=== PATIENT | male | born 1940 | race Caucasian/White ===

== ENCOUNTER 2016-07-19 13:48 | Inpatient (IN) | payer MEDICARE, OTHER ==
--- NOTE | 2016-07-19 14:05 | EDPRACDOC ---
- General Information Chief Complaint: Bleeding (Rectal &/or other) Stated Complaint: BLOOD IN STOOL Time Seen by Provider: 07/19/16 13:59 Information Source: Patient, [facility] Mode of Arrival: Ambulance Home Medications: Home Medications Acetaminophen [Tylenol] 650 mg PO Q6H PRN 07/19/16 Albuterol/Ipratropium Neb [Duoneb] 3 ml NEB Q6H PRN 07/19/16 Allopurinol [Zyloprim] 300 mg PO DAILY 07/19/16 Apixaban [Eliquis] 2.5 mg PO BID 07/19/16 Ascorbic Acid [Vitamin C] 500 mg PO BID 07/19/16 Baclofen 5 mg PO TID 07/19/16 Calcium Carbonate 500 mg PO BID 07/19/16 Carbidopa/Levodopa [Sinemet 10-100 mg Tablet] 1 tab PO TID 07/19/16 Docusate Sodium [Colace] 100 mg PO BID 07/19/16 Guaifenesin [Humabid, Mucinex] 600 mg PO Q12H 07/19/16 Guaifenesin [Robitussin] 10 ml PO Q6H 07/19/16 Levofloxacin [Levaquin] 750 mg PO .DAILY X 7DAYS 07/19/16 Lmfol Ca/Acetyl/Mb12/Algal Oil [Cerefolin Nac Caplet] 1 tab PO DAILY 07/19/16 Med Pass 60 ml PO TID 07/19/16 Metoprolol Tartrate 50 mg PO BID 07/19/16 Mirtazapine 15 mg PO QHS 07/19/16 Multivitamin [One Daily] 1 tab PO DAILY 07/19/16 Ns [Normal Saline] 1,000 ml IV BID 07/19/16 Nystatin 5 ml PO QID 07/19/16 Omeprazole 20 mg PO DAILY 07/19/16 Perphenazine 2 mg PO TID 07/19/16 Sodium Bicarbonate 650 mg PO TID 07/19/16 Zinc Sulfate 220 mg PO DAILY 07/19/16 Allergies/Adverse Reactions: Allergies Allergy/AdvReac Type Severity Reaction Status Date / Time hydrocodone Allergy Unknown Verified 07/19/16 13:57 shrimp Allergy Unknown Verified 07/19/16 13:57 Sulfa (Sulfonamide Allergy Unknown Verified 07/19/16 13:57 Antibiotics) - History of Present Illness Onset: TODAY HPI: PT PRESENTS WITH REPORT OF RECTAL BLEEDING. PATIENT DOES NOT KNOW WHY HE IS HERE. ED Past Medical History - Patient Medical History Neurological History: Reports: Dementia Cardiac History: Reports: Atrial Fibrillation, Hypertension EDM Review of Systems - Review of Systems ROS Unobtainable: Yes Hx Limited due to age/level of understanding of patient - Physical Exam Constitutional: Alert, Confused Oriented to: Person Last recorded Vital Signs: Last Vital Signs Temp 98.3 F 07/19/16 13:50 Pulse 130 H 07/19/16 13:50 Resp 20 07/19/16 13:50 BP 111/67 07/19/16 13:50 Pulse Ox 92 07/19/16 13:50 Oxygen Pulse Oxygen Saturation 92 O2 Device Nasal Cannula Oxygen Flow Rate 1 Fraction of Inspired Oxygen ( FIO2) - HEENT Head: negative: Deformity, Laceration Eye Exam: Pale Conjunctiva. negative: Conjunctival Injection Oropharynx: negative: Membranes Dry Nose: negative: Congestion, Discharge Neck: negative: Limited ROM - Respiratory/Cardiovascular Respiratory: Tachypnea. negative: Rales Cardiovascular: Tachycardia. negative: Irregular - GI Auscultation: Normal Palpation: Normal Tenderness: Non tender - Musculoskeletal Extremities: Pedal Pulse (PALPABLE), Radial Pulse (PALPABLE) - Integumentary Skin: Warm, Dry - Neurologic Memory Impaired: Short-term, Long-term Motor Function: Normal Mood Description: Flat Thought: Other (CONFUSED BUT ABLE TO ANSWER QUESTIONS ABOUT CURRENT STATE SOMEWHAT.) - Results 07/19/16 14:16 07/19/16 14:16 - Departure Yes I personally saw and evaluated the patient. Disposition: Admit IP To This Hospital Condition: Stable Final Diagnosis: GI bleed, Elevated lipase, Chronic renal disease, UTI (urinary tract infection) Instructions: Urinary Tract Infection in Men (ED), Dysuria Decision to Admit Time: 16:05 Decision to admit date: 07/19/16 Decision to admit: from ED
[2016-07-19 14:29] LABS: AUTOMATED BASOPHIL 0.5 % (0-2); AUTOMATED EOSINOPHIL 0.2 % (0-5); AUTOMATED LYMPH 7.9 % (17-44); AUTOMATED NEUTROPHIL 83.4 % (45-76); MPV 7.2 fL (7.4-10.4)
[2016-07-19 14:39] LABS: ABG Draw Site Right Radial; ALLEN'S TEST PASS; BEb 2.2 (+/- 2); TCO2 26.3 MMOL/L (23-27)
[2016-07-19 14:42] LABS: BLOOD UREA NITROGEN 66 MG/DL (9-20); CALC CORRECTED 9.7 MG/DL (8.4-10.2); CALCIUM 8.4 MG/DL (8.4-10.2); CALCULATED OSMOLALITY 308 MOs/Kg (270-290); CHLORIDE 112 mEq/L (98-107); GLUCOSE 108 MG/DL (70-99); SODIUM LEVEL 150 mEq/L (137-146); TOTAL PROTEIN 6.6 G/DL (6.3-8.2)
--- NOTE | 2016-07-19 14:42 | DIRPT ---
CLINICAL DATA: Weakness. Rectal bleeding. EXAM: PORTABLE CHEST 1 VIEW COMPARISON: None. FINDINGS: There is cardiomegaly even considering the AP technique. Previous median sternotomy. Pulmonary vascularity is normal. No discrete infiltrates or effusions. No acute osseous abnormality. IMPRESSION: Cardiomegaly. Electronically Signed By: Hardy Lerma M.D. On: 07/19/2016 14:39
[2016-07-19 14:46] LABS: PARTIAL THROMB. TIME 29.9 SEC (22-35); PT-INR 1.4
[2016-07-19] MEDS ORDERED: NS 1,000 ML IV ONE ×2 (14:46→15:38)
[2016-07-19 14:56] LABS: CPK TOTAL WITH POSSIBLE MB < 20 IU/L (55-170)
[2016-07-19] MEDS ORDERED: Pharmacy Review for Metformin - IV Contrast Given SCH (15:00)
[2016-07-19 15:32] LABS: LEUKOCYTES/URINE 2+ (NEGATIVE); NITRITE/URINE NEG (NEGATIVE); URINE OCCULT BLOOD NEG (NEG/TRACE); WBC/URINE TNTC (0-2)
[2016-07-19] MEDS ORDERED: CEFTRIAXONE 1 GM in D5W 100 ML IV ONE (15:38)
--- NOTE | 2016-07-19 15:49 | DIRPT ---
CLINICAL DATA: Rectal bleeding. EXAM: CT ABDOMEN AND PELVIS WITHOUT CONTRAST TECHNIQUE: Multidetector CT imaging of the abdomen and pelvis was performed following the standard protocol without IV contrast. COMPARISON: None. FINDINGS: Mild multilevel degenerative disc disease is noted in lower lumbar spine. Minimal left pleural effusion is noted. Mild interstitial densities are noted posteriorly in both lung bases which may represent scarring or edema. Mild cholelithiasis is noted. No focal abnormality is noted in the liver, spleen or pancreas on these unenhanced images. Adrenal glands appear normal. Bilateral renal atrophy with cortical scarring is noted. Probable nonobstructive calculus is seen in upper pole collecting system of left kidney. No hydronephrosis or renal obstruction is noted. There is no evidence of bowel obstruction. Stool is noted throughout the colon, with a large amount of stool seen in the rectum concerning for impaction. Urinary bladder is minimally distended. Prostatic calcifications are noted. Atherosclerosis of abdominal aorta is noted without aneurysm formation. IMPRESSION: Minimal left pleural effusion is noted. Mild interstitial densities are noted posteriorly in both lung bases which may represent scarring or edema. Mild cholelithiasis is noted. Bilateral renal atrophy with cortical scarring. Probable nonobstructive left renal calculus. No hydronephrosis or renal obstruction is noted. Large amount of stool is noted in the rectum concerning for impaction. Electronically Signed By: Hardy Terrell Jr, M.D. On: 07/19/2016 15:46
--- NOTE | 2016-07-19 16:46 | HISTPHYS ---
- Chief Complaint Bright red blood per rectum - History of Present Illness Mr. Mendoza is a 76-year-old white male who is chronically ill and nonambulatory who was [facility] the emergency room from [facility] with bright red blood per rectum. He has dementia and Parkinson's disease and is unable to provide any history. It is unknown how long he has been bleeding or how much. He is heme-positive from below. He also has a congested-sounding cough and multiple electrolyte abnormalities. He is minimally anemic with a hemoglobin of 11 does appear dehydrated with an acute kidney injury. His white count is mildly elevated. A CT scan of the abdomen and pelvis shows constipation but no other significant acute abnormality. Given the bleeding and unknown details his history he will be admitted for further evaluation and management. - Medical History Cardiac History: Reports: Atrial Fibrillation, Hypertension Respiratory History: Reports: COPD GI/ History: Reports: Renal Disease, Gastroesophageal Reflux Musculoskeletal History: Reports: Arthritis Systemic History: Reports: No Significant History Neurological History: Reports: Dementia, Parkinson's Psychological History: Reports: No Significant History - Surgical History Reports: No Significant History - Medictions/Allergies Allergies hydrocodone Allergy (Verified 07/19/16 13:57) Unknown shrimp Allergy (Verified 07/19/16 13:57) Unknown Sulfa (Sulfonamide Antibiotics) Allergy (Verified 07/19/16 13:57) Unknown Current Medication List: Reviewed Home Medications Acetaminophen [Tylenol] 650 mg PO Q6H PRN 07/19/16 Albuterol/Ipratropium Neb [Duoneb] 3 ml NEB Q6H PRN 07/19/16 Allopurinol [Zyloprim] 300 mg PO DAILY 07/19/16 Apixaban [Eliquis] 2.5 mg PO BID 07/19/16 Ascorbic Acid [Vitamin C] 500 mg PO BID 07/19/16 Baclofen 5 mg PO TID 07/19/16 Calcium Carbonate 500 mg PO BID 07/19/16 Carbidopa/Levodopa [Sinemet 10-100 mg Tablet] 1 tab PO TID 07/19/16 Docusate Sodium [Colace] 100 mg PO BID 07/19/16 Guaifenesin [Humabid, Mucinex] 600 mg PO Q12H 07/19/16 Guaifenesin [Robitussin] 10 ml PO Q6H 07/19/16 Levofloxacin [Levaquin] 750 mg PO .DAILY X 7DAYS 07/19/16 Lmfol Ca/Acetyl/Mb12/Algal Oil [Cerefolin Nac Caplet] 1 tab PO DAILY 07/19/16 Med Pass 60 ml PO TID 07/19/16 Metoprolol Tartrate 50 mg PO BID 07/19/16 Mirtazapine 15 mg PO QHS 07/19/16 Multivitamin [One Daily] 1 tab PO DAILY 07/19/16 Ns [Normal Saline] 1,000 ml IV BID 07/19/16 Nystatin 5 ml PO QID 07/19/16 Omeprazole 20 mg PO DAILY 07/19/16 Perphenazine 2 mg PO TID 07/19/16 Sodium Bicarbonate 650 mg PO TID 07/19/16 Zinc Sulfate 220 mg PO DAILY 07/19/16 - Family History Reports: No Significant History - Social History Travel Outside of [place] in the Last 3 Months?: No Lives: [facility] Smoking Status: Never smoker Social History: Denies: Alcohol Use - Review of Systems Yes Review of systems cannot be obtained due to the patient's medical condition (Confusion and dementia) - Physical Exam Constitutional: Alert, Confused, Distress. negative: Well appearing (Severely chronically ill-appearing) Oriented to: Person Exam: Last Vital Signs Temp 98.3 F 07/19/16 13:50 Pulse 123 H 07/19/16 16:44 Resp 20 07/19/16 16:44 BP 122/77 07/19/16 16:44 Pulse Ox 93 07/19/16 16:44 Intake & Output 07/19/16 07/19/16 07/19/16 07:59 15:59 23:59 Output Total 150 Balance -150 Patient's weight 102.965 kg - HEENT Head: Normal. negative: Deformity, Laceration Eye: Pale Conjunctiva. negative: Conjunctival Injection Oropharynx: Normal. negative: Membranes Dry Tympanic Membrane: Normal Nose: negative: Congestion, Discharge - Respiratory/Cardiovascular Respiratory: Rhonchi, Tachypnea. negative: Rales Cardiovascular: Tachycardia, Irregular - GI Auscultation: Normal Palpation: Normal Tenderness: Non tender Rectal Exam: Heme positive stool - Musculoskeletal Back: Abrasion Extremities: Edema (Mild peripheral edema), Pedal Pulse (PALPABLE), Radial Pulse (PALPABLE). negative: Clubbing, Cyanosis - Integumentary Skin: Warm, Dry Lymphatics: Normal. negative: Adenopathy - Neurologic Memory Impaired: Short-term, Long-term Motor Function: Unable to Test Cranial Nerve: Unable to Test Cerebellar: Unable to Test Mood Description: Flat Thought: Other (Confused and unable provide any history. Does not follow commands for me) Perception: negative: Normal - Focused CV Perfusion Exam Vital Signs: Last Vital Signs Temp 98.3 F 07/19/16 13:50 Pulse 123 H 07/19/16 16:44 Resp 20 07/19/16 16:44 BP 122/77 07/19/16 16:44 Pulse Ox 93 07/19/16 16:44 - Lab Results Laboratory Results - last 24 hr 07/19/16 07/19/16 07/19/16 14:16 14:16 14:16 WBC 13.9 H RBC 3.83 L Hgb 11.4 L Hct 34.2 L MCV 89 MCH 29.8 MCHC 33.4 RDW 17.7 H Plt Count 593 H MPV 7.2 L Neut % (Auto) 83.4 H Lymph % (Auto) 7.9 L [place] % (Auto) 8.0 Eos % (Auto) 0.2 Baso % (Auto) 0.5 Absolute Neuts (auto) 11.54 H Absolute Lymphs (auto) 0.97 PT INR APTT Puncture Site pH pCO2 pO2 HCO3 Total CO2 Base Excess Specimen Drawn By Sodium 150 H Potassium 3.3 L Chloride 112 H Carbon Dioxide 25 Anion Gap 16 BUN 66 H Creatinine 1.90 H Estimated GFR (MDRD) 35 L Glucose 108 H Calculated Osmolality 308 H Lactic Acid 2.7 H Calcium 8.4 Corrected Calcium 9.7 Total Bilirubin 0.8 AST 37 ALT 16 L Alkaline Phosphatase 171 H Creatine Kinase < 20 L Troponin I 0.03 Total Protein 6.6 Albumin 2.7 L Lipase 1315 H Urine Color Urine Clarity Urine pH Ur Specific [place] Urine Protein Urine Glucose (UA) Urine Ketones Urine Occult Blood Urine Nitrite Urine Bilirubin Urine Urobilinogen Ur Leukocyte Esterase Urine RBC Urine WBC Urine WBC Clumps Ur Epithelial Cells Urine Bacteria Hyaline Casts Urine Mucus 07/19/16 07/19/16 07/19/16 14:16 14:35 15:00 WBC RBC Hgb Hct MCV MCH MCHC RDW Plt Count MPV Neut % (Auto) Lymph % (Auto) [place] % (Auto) Eos % (Auto) Baso % (Auto) Absolute Neuts (auto) Absolute Lymphs (auto) PT 14.9 H INR 1.4 APTT 29.9 Puncture Site Right radial pH 7.480 H pCO2 34.0 L pO2 59.0 L HCO3 25.3 Total CO2 26.3 Base Excess 2.2 H Specimen Drawn By Hiren Sodium Potassium Chloride Carbon Dioxide Anion Gap BUN Creatinine Estimated GFR (MDRD) Glucose Calculated Osmolality Lactic Acid Calcium Corrected Calcium Total Bilirubin AST ALT Alkaline Phosphatase Creatine Kinase Troponin I Total Protein Albumin Lipase Urine Color Yellow Urine Clarity Cldy Urine pH 6.0 Ur Specific [place] 1.010 Urine Protein Neg Urine Glucose (UA) Neg Urine Ketones Neg Urine Occult Blood Neg Urine Nitrite Neg Urine Bilirubin Neg Urine Urobilinogen <2.0 Ur Leukocyte Esterase 2+ H Urine RBC 2-5 H Urine WBC Tntc H Urine WBC Clumps Present H Ur Epithelial Cells 1+ Urine Bacteria 1+ H Hyaline Casts 5-10 H Urine Mucus Occ - Assessment (1) GI bleed K92.2 - GASTROINTESTINAL HEMORRHAGE, UNSPECIFIED Acute Present on Admission: Yes Qualifiers: GI bleed type/associated pathology: anorectal hemorrhage Qualified Code(s) : K62.5 - Hemorrhage of anus and rectum This is mild and likely hemorrhoidal versus diverticular. He is on Eliquis. His hemoglobin is currently stable. Will monitor his H&H and transfuse if needed. CT scan showed constipation which may be contributing to bleeding. (2) Acute kidney injury N17.9 - ACUTE KIDNEY FAILURE, UNSPECIFIED Acute Present on Admission: Yes IV fluids and monitor (3) Bronchopneumonia J18.0 - BRONCHOPNEUMONIA, UNSPECIFIED ORGANISM Acute Present on Admission: Yes Congested-sounding cough but x-ray negative. Will start on IV Rocephin azithromycin. Nebulizers as needed. Oxygen support. (4) Hypokalemia E87.6 - HYPOKALEMIA Acute Present on Admission: Yes Replete with IV fluids (5) Elevated lipase R74.8 - ABNORMAL LEVELS OF OTHER SERUM ENZYMES Acute Present on Admission: Yes Unclear what to make of this. Monitor. (6) UTI (urinary tract infection) N39.0 - URINARY TRACT INFECTION, SITE NOT SPECIFIED Acute Present on Admission: Yes Qualifiers: Urinary tract infection type: acute cystitis Hematuria presence: without hematuria Qualified Code(s): N30.00 - Acute cystitis without hematuria IV Rocephin. Adjust antibiotics pending culture results (7) Atrial fibrillation I48.91 - UNSPECIFIED ATRIAL FIBRILLATION Chronic Present on Admission: Yes Qualifiers: Atrial fibrillation type: chronic Qualified Code(s): I48.2 - Chronic atrial fibrillation Continue home medications. Hold anticoagulation due to bleeding. Monitor on telemetry. (8) Dementia F03.90 - UNSPECIFIED DEMENTIA WITHOUT BEHAVIORAL DISTURBANCE Acute Present on Admission: Yes Qualifiers: Dementia type: Alzheimer's disease Alzheimer's disease onset: late-onset Dementia behavioral disturbance: without behavioral disturbance Qualified Code (s): G30.1 - Alzheimer's disease with late onset; F02.80 - Dementia in other diseases classified elsewhere without behavioral disturbance Unable to provide any meaningful history. (9) Parkinsons disease G20 - PARKINSON'S DISEASE Acute Present on Admission: Yes Continue Sinemet and monitor.
[2016-07-19] MEDS ORDERED: Docusate Sodium 100 MG CAP PO PRN (16:47)
[2016-07-19] MEDS ORDERED: ZOLPIDEM TARTRATE 5 MG TAB PO PRN (16:47)
[2016-07-19] MEDS ORDERED: Albuterol/Ipratropium Neb 3 ML NEB NEB PRN (16:47)
[2016-07-19] MEDS ORDERED: MAGNESIUM HYDROXIDE 30 ML BOTTLE PO PRN (16:47)
[2016-07-19] MEDS ORDERED: ONDANSETRON HCL 4 MG/2 ML VIAL IV PRN (16:47)
[2016-07-19] MEDS ORDERED: GUAIFENESIN 200 MG/10 ML UDC PO PRN (16:47)
[2016-07-19] MEDS ORDERED: PROMETHAZINE 25 MG/ML VIAL IV PRN (16:47)
[2016-07-19] MEDS ORDERED: BENZONATATE 100 MG PERLES PO PRN (16:47)
[2016-07-19] MEDS ORDERED: LACTULOSE 20 GM/30 ML ORAL SOLN PO ONE (16:53)
[2016-07-19] MEDS: AZITHROMYCIN 500 MG in D5W 250 ML IV SCH (18:26)
[2016-07-19] MEDS: NS/KCl 20 mEq 1,000 ML IV SCH (18:26)
[2016-07-19] MEDS ORDERED: MED PASS PO SCH (21:00)
[2016-07-19] MEDS ORDERED: SODIUM BICARBONATE 650 MG PO SCH (21:00)
[2016-07-19] MEDS: CALCIUM CARBONATE 500 MG TAB PO SCH (21:50)
[2016-07-19] MEDS: BACLOFEN 10 MG TAB PO SCH (21:50)
[2016-07-19] MEDS: Docusate Sodium 100 MG CAP PO SCH (21:50)
[2016-07-19] MEDS: ASCORBIC ACID 500 MG TAB PO SCH (21:51)
[2016-07-19] MEDS: MIRTAZAPINE 15 MG TAB PO SCH (21:51)
[2016-07-19] MEDS: SODIUM BICARBONATE 650 MG (10 GR) TAB PO SCH (21:51)
[2016-07-19] MEDS: CARBIDOPA LEVODOPA PO SCH (21:51)
[2016-07-19] MEDS: PERPHENAZINE 2 MG TAB PO SCH (21:52)
[2016-07-19] MEDS: METOPROLOL TARTRATE 50 MG TAB PO SCH (22:14)
[2016-07-19] MEDS: NYSTATIN ORAL SUSP 5 ML PO SCH (22:14)
[2016-07-20] MEDS: ACETAMINOPHEN 325 MG/TAB TABLET PO PRN (01:41)
[2016-07-20] MEDS: NS/KCl 20 mEq 1,000 ML IV SCH ×2 (04:14→11:24)
[2016-07-20] MEDS ORDERED: Vaccine Screening Complete SCH (05:00)
[2016-07-20] MEDS: BACLOFEN 10 MG TAB PO SCH ×3 (05:16→23:33)
[2016-07-20] MEDS: PANTOPRAZOLE 40 MG TAB PO SCH (05:16)
[2016-07-20] MEDS: CARBIDOPA LEVODOPA PO SCH ×3 (05:16→23:36)
[2016-07-20] MEDS: SODIUM BICARBONATE 650 MG (10 GR) TAB PO SCH ×3 (05:17→23:36)
[2016-07-20] MEDS: PERPHENAZINE 2 MG TAB PO SCH ×3 (05:17→23:36)
[2016-07-20] MEDS: NYSTATIN ORAL SUSP 5 ML PO SCH ×4 (07:43→23:35)
[2016-07-20] MEDS: ASCORBIC ACID 500 MG TAB PO SCH ×2 (07:46→23:37)
[2016-07-20] MEDS: Docusate Sodium 100 MG CAP PO SCH ×2 (07:46→23:33)
[2016-07-20] MEDS: METOPROLOL TARTRATE 50 MG TAB PO SCH ×2 (07:46→23:34)
[2016-07-20] MEDS: CALCIUM CARBONATE 500 MG TAB PO SCH ×2 (07:46→23:35)
[2016-07-20] MEDS: ALLOPURINOL 300 MG TAB PO SCH (07:47)
[2016-07-20] MEDS: ZINC SULFATE 220 MG CAP PO SCH (07:47)
[2016-07-20 07:59] LABS: AUTOMATED BASOPHIL 0.2 % (0-2); AUTOMATED EOSINOPHIL 0.3 % (0-5); AUTOMATED MONOCYTE 7.3 % (3-10); AUTOMATED NEUTROPHIL 82.2 % (45-76); MPV 7.8 fL (7.4-10.4)
[2016-07-20 08:17] LABS: BLOOD UREA NITROGEN 56 MG/DL (9-20); CALCIUM 8.3 MG/DL (8.4-10.2); CALCULATED OSMOLALITY 307 MOs/Kg (270-290); CHLORIDE 115 mEq/L (98-107); GLUCOSE 88 MG/DL (70-99); SODIUM LEVEL 152 mEq/L (137-146)
[2016-07-20] MEDS ORDERED: Non-Formulary Medication ITEM (Omeprazole [Omeprazole] 20 MG) PO SCH (09:00)
[2016-07-20] MEDS ORDERED: Non-Formulary Medication ITEM (Multivitamin [One Daily] 1 TAB) PO SCH (09:00)
[2016-07-20] MEDS ORDERED: [UNRECOGNIZED DRUG - MIXTURE] PO SCH (09:00)
[2016-07-20] MEDS: VITAMINS (FOLGARD RX) TAB PO SCH (12:48)
[2016-07-20] MEDS: VITAMINS, MULTIPLE CAP PO SCH (12:48)
[2016-07-20] MEDS: CEFTRIAXONE 1 GM in D5W 100 ML IV SCH (15:15)
--- NOTE | 2016-07-20 16:25 | GENMEDPROG ---
Chief Complaint: Less congested on exam today. Hemoglobin relatively stable. Denies further bleeding. Remains very confused however Notes Reviewed: Yes Events from last night noted and discussed with Clinical Staff Current Medication List: Reviewed Currently: Reports: Cough, Wheezing, ARMENDARIZ, SOB. Denies: Nausea and Vomiting, Abdominal Pain, Chest Pain DVT Prophylaxis: Yes - Physical Examination Vital Signs and I&O: Last Vital Signs Temp 98.2 F 07/20/16 13:50 Pulse 112 07/20/16 13:50 Resp 18 07/20/16 13:50 BP 106/68 07/20/16 13:50 Pulse Ox 96 07/20/16 13:50 Oxygen Pulse Oxygen Saturation 96 O2 Device Nasal Cannula Oxygen Flow Rate 1 Fraction of Inspired Oxygen ( FIO2) Intake & Output 07/17/16 07/18/16 07/19/16 07/20/16 23:59 23:59 23:59 23:59 Intake Total 2825 1362 Output Total 200 Balance 2625 1362 Patient's weight 97.182 kg 97.749 kg General: Alert, Mild distress. negative: Oriented x3, Cooperative HEENT: Normal, PERRLA, EOMI, Anicteric Sclera Neck: Non-tender, Full range of motion, Normal Trachea alignment, Normal inspection. negative: JVD Lymphatics: Normal. negative: Adenopathy Respiratory: Rhonchi, Tachypnea. negative: Rales Cardiovascular: Regular rate and rhythm, No Gallops,Rubs/Murmurs GI: Normal bowel sounds, Soft, Non tender, No hepatospenomegaly Extremities/Musculoskeletal: Normal pulses. negative: Tenderness, Swelling, Edema Skin: Warm,Dry and Intact, No rashes, No breakdown, No significant lesion Neurological: Normal speech, Strength at 5/5 X4 ext, Normal tone, Cranial nerves 3-12 NL Psych/Mental Status: Appropriate, Normal Affect, Confused Lab/DI/Studies Reviewed: Laboratory Results - last 24 hr 07/19/16 07/19/16 07/20/16 17:15 19:35 01:05 WBC RBC Hgb 10.2 L D Hct 32.1 L MCV MCH MCHC RDW Plt Count MPV Neut % (Auto) Lymph % (Auto) [place] % (Auto) Eos % (Auto) Baso % (Auto) Absolute Neuts (auto) Absolute Lymphs (auto) Sodium Potassium Chloride Carbon Dioxide Anion Gap BUN Creatinine Estimated GFR (MDRD) Glucose Calculated Osmolality Lactic Acid 1.4 Calcium Troponin I 0.03 07/20/16 07/20/16 07/20/16 07:04 07:04 09:10 WBC 14.0 H RBC 3.44 L Hgb 10.1 L 10.3 L Hct 31.2 L 31.5 L MCV 91 MCH 29.3 MCHC 32.4 L RDW 18.4 H Plt Count 453 H MPV 7.8 Neut % (Auto) 82.2 H Lymph % (Auto) 10.0 L [place] % (Auto) 7.3 Eos % (Auto) 0.3 Baso % (Auto) 0.2 Absolute Neuts (auto) 11.48 H Absolute Lymphs (auto) 1.40 Sodium 152 H Potassium 3.6 Chloride 115 H Carbon Dioxide 25 Anion Gap 16 BUN 56 H Creatinine 1.60 H Estimated GFR (MDRD) 42 L Glucose 88 Calculated Osmolality 307 H Lactic Acid Calcium 8.3 L Troponin I - Assessment (1) GI bleed Acute K92.2 - GASTROINTESTINAL HEMORRHAGE, UNSPECIFIED Qualifiers: GI bleed type/associated pathology: anorectal hemorrhage Qualified Code(s) : K62.5 - Hemorrhage of anus and rectum Comment/Plan: Hemoglobin stable with no further bleeding. Continue to hold Eliquis for now. Treating constipation. If remains stable then would hold on further workup given overall poor functional status and health. (2) Acute kidney injury Acute N17.9 - ACUTE KIDNEY FAILURE, UNSPECIFIED Comment/Plan: Slightly better. Continue IV fluids and monitor. (3) Bronchopneumonia Acute J18.0 - BRONCHOPNEUMONIA, UNSPECIFIED ORGANISM Comment/Plan: Less congested today. Continue oxygen support. Continue IV antibiotics. Repeat chest x-ray in a.m.. (4) Hypokalemia Acute E87.6 - HYPOKALEMIA Comment/Plan: Replete with IV fluids (5) Elevated lipase Acute R74.8 - ABNORMAL LEVELS OF OTHER SERUM ENZYMES Comment/Plan: Unclear what to make of this. Monitor. (6) UTI (urinary tract infection) Acute N39.0 - URINARY TRACT INFECTION, SITE NOT SPECIFIED Qualifiers: Urinary tract infection type: acute cystitis Hematuria presence: without hematuria Qualified Code(s): N30.00 - Acute cystitis without hematuria Comment/Plan: IV Rocephin. Adjust antibiotics pending culture results (7) Atrial fibrillation Chronic I48.91 - UNSPECIFIED ATRIAL FIBRILLATION Qualifiers: Atrial fibrillation type: chronic Qualified Code(s): I48.2 - Chronic atrial fibrillation Comment/Plan: Continue home medications. Hold anticoagulation due to bleeding. Monitor on telemetry. (8) Dementia Acute F03.90 - UNSPECIFIED DEMENTIA WITHOUT BEHAVIORAL DISTURBANCE Qualifiers: Dementia type: Alzheimer's disease Alzheimer's disease onset: late-onset Dementia behavioral disturbance: without behavioral disturbance Qualified Code (s): G30.1 - Alzheimer's disease with late onset; F02.80 - Dementia in other diseases classified elsewhere without behavioral disturbance Comment/Plan: Unable to provide any meaningful history. (9) Parkinsons disease Acute G20 - PARKINSON'S DISEASE Comment/Plan: Continue Sinemet and monitor. Case Care Discussed with: Patient, Nursing Staff, Physical Therapy, Resource Management, Respiratory Therapy, Mortician Investigator
[2016-07-20] MEDS: AZITHROMYCIN 500 MG in D5W 250 ML IV SCH (17:18)
[2016-07-20] MEDS: KCL 20 MEQ IV SCH (18:40)
[2016-07-20] MEDS: [UNRECOGNIZED DRUG - OTHER] IV SCH (18:40)
[2016-07-20] MEDS: MIRTAZAPINE 15 MG TAB PO SCH (23:35)
[2016-07-21] MEDS: BACLOFEN 10 MG TAB PO SCH ×3 (05:35→21:17)
[2016-07-21] MEDS: CARBIDOPA LEVODOPA PO SCH ×3 (05:36→21:23)
[2016-07-21] MEDS: PANTOPRAZOLE 40 MG TAB PO SCH (05:36)
[2016-07-21] MEDS: PERPHENAZINE 2 MG TAB PO SCH ×3 (05:37→21:24)
[2016-07-21] MEDS: SODIUM BICARBONATE 650 MG (10 GR) TAB PO SCH ×3 (05:37→21:24)
[2016-07-21] MEDS: [UNRECOGNIZED DRUG - OTHER] IV SCH (05:39)
[2016-07-21] MEDS: KCL 20 MEQ IV SCH (05:39)
[2016-07-21 07:19] LABS: MPV 8.4 fL (7.4-10.4)
[2016-07-21 07:23] LABS: BLOOD UREA NITROGEN 42 MG/DL (9-20); CALCIUM 8.1 MG/DL (8.4-10.2); CALCULATED OSMOLALITY 299 MOs/Kg (270-290); CHLORIDE 117 mEq/L (98-107); GLUCOSE 91 MG/DL (70-99); SODIUM LEVEL 150 mEq/L (137-146)
--- NOTE | 2016-07-21 08:15 | DIRPT ---
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 Bandlike opacities in the lung bases favoring atelectasis. Small left pleural effusion. IMPRESSION: 1. Small left pleural effusion and mild bibasilar bandlike opacities favoring atelectasis. 2. Mild enlargement of the cardiopericardial silhouette. Electronically Signed By: Ephraim Baltazar M.D. On: 07/21/2016 08:13
[2016-07-21] MEDS: METOPROLOL TARTRATE 50 MG TAB PO SCH ×2 (08:24→21:18)
[2016-07-21] MEDS: ALLOPURINOL 300 MG TAB PO SCH (08:24)
[2016-07-21] MEDS: ASCORBIC ACID 500 MG TAB PO SCH ×2 (08:25→21:25)
[2016-07-21] MEDS: Docusate Sodium 100 MG CAP PO SCH ×2 (08:25→21:17)
[2016-07-21] MEDS: NYSTATIN ORAL SUSP 5 ML PO SCH ×4 (08:25→21:18)
[2016-07-21] MEDS: ZINC SULFATE 220 MG CAP PO SCH (08:25)
[2016-07-21] MEDS: CALCIUM CARBONATE 500 MG TAB PO SCH ×2 (08:25→21:22)
--- NOTE | 2016-07-21 13:27 | GENMEDPROG ---
Chief Complaint: Feels okay. Still confused. Hemoglobin stable. Notes Reviewed: Yes Events from last night noted and discussed with Clinical Staff Current Medication List: Reviewed Currently: Reports: Cough, Wheezing, ARMENDARIZ, SOB. Denies: Nausea and Vomiting, Abdominal Pain, Chest Pain DVT Prophylaxis: Yes - Physical Examination Vital Signs and I&O: Last Vital Signs Temp 99.2 F 07/21/16 06:00 Pulse 110 07/21/16 08:25 Resp 18 07/21/16 06:00 BP 122/72 07/21/16 08:25 Pulse Ox 94 07/21/16 08:00 Oxygen Pulse Oxygen Saturation 94 O2 Device Nasal Cannula Oxygen Flow Rate 1 Fraction of Inspired Oxygen ( FIO2) Intake & Output 07/18/16 07/19/16 07/20/16 07/21/16 23:59 23:59 23:59 23:59 Intake Total 2825 2941 810 Output Total 200 225 Balance 2625 2941 585 Patient's weight 97.182 kg 97.749 kg 98.203 kg General: Alert, Mild distress. negative: Oriented x3, Cooperative HEENT: Normal, PERRLA, EOMI, Anicteric Sclera Neck: Non-tender, Full range of motion, Normal Trachea alignment, Normal inspection. negative: JVD Lymphatics: Normal. negative: Adenopathy Respiratory: Rhonchi, Tachypnea. negative: Rales Cardiovascular: Regular rate and rhythm, No Gallops,Rubs/Murmurs GI: Normal bowel sounds, Soft, Non tender, No hepatospenomegaly Extremities/Musculoskeletal: Normal pulses. negative: Tenderness, Swelling, Edema Skin: Warm,Dry and Intact, No rashes, No breakdown, No significant lesion Neurological: Normal speech, Strength at 5/5 X4 ext, Normal tone, Cranial nerves 3-12 NL Psych/Mental Status: Appropriate, Normal Affect, Confused Lab/DI/Studies Reviewed: Laboratory Results - last 24 hr 07/21/16 07/21/16 06:25 06:25 WBC 15.1 H RBC 3.57 L Hgb 10.4 L Hct 32.7 L MCV 92 MCH 29.2 MCHC 31.9 L RDW 18.3 H Plt Count 431 H MPV 8.4 Sodium 150 H Potassium 3.9 Chloride 117 H Carbon Dioxide 24 Anion Gap 13 BUN 42 H Creatinine 1.40 H Estimated GFR (MDRD) 49 L Glucose 91 Calculated Osmolality 299 H Calcium 8.1 L - Assessment (1) Acute kidney injury Acute N17.9 - ACUTE KIDNEY FAILURE, UNSPECIFIED Comment/Plan: Steadily better. Continue IV fluids and monitor. (2) GI bleed Acute K92.2 - GASTROINTESTINAL HEMORRHAGE, UNSPECIFIED Qualifiers: GI bleed type/associated pathology: anorectal hemorrhage Qualified Code(s) : K62.5 - Hemorrhage of anus and rectum Comment/Plan: Hemoglobin stable with no further bleeding. Continue to hold Eliquis for now. Treating constipation. If remains stable then would hold on further workup given overall poor functional status and health. (3) Bronchopneumonia Acute J18.0 - BRONCHOPNEUMONIA, UNSPECIFIED ORGANISM Comment/Plan: Repeat chest x-ray negative. Less congested. Encouraged deep inspiration and activity as tolerated. (4) Hypokalemia Acute E87.6 - HYPOKALEMIA Comment/Plan: Replete with IV fluids (5) Elevated lipase Acute R74.8 - ABNORMAL LEVELS OF OTHER SERUM ENZYMES Comment/Plan: Recheck. Exam benign. (6) UTI (urinary tract infection) Acute N39.0 - URINARY TRACT INFECTION, SITE NOT SPECIFIED Qualifiers: Urinary tract infection type: acute cystitis Hematuria presence: without hematuria Qualified Code(s): N30.00 - Acute cystitis without hematuria Comment/Plan: Culture negative. DC antibiotics. (7) Atrial fibrillation Chronic I48.91 - UNSPECIFIED ATRIAL FIBRILLATION Qualifiers: Atrial fibrillation type: chronic Qualified Code(s): I48.2 - Chronic atrial fibrillation Comment/Plan: Continue home medications. Hold anticoagulation due to bleeding. Monitor on telemetry. (8) Dementia Acute F03.90 - UNSPECIFIED DEMENTIA WITHOUT BEHAVIORAL DISTURBANCE Qualifiers: Dementia type: Alzheimer's disease Alzheimer's disease onset: late-onset Dementia behavioral disturbance: without behavioral disturbance Qualified Code (s): G30.1 - Alzheimer's disease with late onset; F02.80 - Dementia in other diseases classified elsewhere without behavioral disturbance Comment/Plan: Unable to provide any meaningful history. (9) Parkinsons disease Acute G20 - PARKINSON'S DISEASE Comment/Plan: Continue Sinemet and monitor. Case Care Discussed with: Patient, Nursing Staff, Physical Therapy, Resource Management, Photolith Operator
[2016-07-21] MEDS: VITAMINS (FOLGARD RX) TAB PO SCH (14:51)
[2016-07-21] MEDS: VITAMINS, MULTIPLE CAP PO SCH (14:51)
[2016-07-21] MEDS: CEFTRIAXONE 1 GM in D5W 100 ML IV SCH (16:31)
[2016-07-21] MEDS: AZITHROMYCIN 500 MG in D5W 250 ML IV SCH (18:21)
[2016-07-21] MEDS: MIRTAZAPINE 15 MG TAB PO SCH (21:23)
[2016-07-22] MEDS: BACLOFEN 10 MG TAB PO SCH ×3 (05:49→20:32)
[2016-07-22] MEDS: CARBIDOPA LEVODOPA PO SCH ×3 (05:50→20:46)
[2016-07-22] MEDS: PANTOPRAZOLE 40 MG TAB PO SCH (05:50)
[2016-07-22] MEDS: SODIUM BICARBONATE 650 MG (10 GR) TAB PO SCH ×3 (05:51→20:34)
[2016-07-22] MEDS: PERPHENAZINE 2 MG TAB PO SCH ×3 (05:51→20:33)
[2016-07-22 08:04] LABS: AUTOMATED BASOPHIL 0.4 % (0-2); AUTOMATED EOSINOPHIL 0.9 % (0-5); AUTOMATED LYMPH 10.7 % (17-44); AUTOMATED MONOCYTE 5.9 % (3-10); AUTOMATED NEUTROPHIL 82.1 % (45-76); MPV 8.2 fL (7.4-10.4)
[2016-07-22 08:24] LABS: BLOOD UREA NITROGEN 36 MG/DL (9-20); CALCIUM 8.1 MG/DL (8.4-10.2); CALCULATED OSMOLALITY 292 MOs/Kg (270-290); CHLORIDE 115 mEq/L (98-107); GLUCOSE 95 MG/DL (70-99); SODIUM LEVEL 148 mEq/L (137-146); TOTAL PROTEIN 5.2 G/DL (6.3-8.2)
[2016-07-22] MEDS: ZINC SULFATE 220 MG CAP PO SCH (09:39)
[2016-07-22] MEDS: NYSTATIN ORAL SUSP 5 ML PO SCH ×4 (09:39→20:36)
[2016-07-22] MEDS: METOPROLOL TARTRATE 50 MG TAB PO SCH ×2 (09:40→20:35)
[2016-07-22] MEDS: Docusate Sodium 100 MG CAP PO SCH ×2 (09:40→20:32)
[2016-07-22] MEDS: CALCIUM CARBONATE 500 MG TAB PO SCH ×2 (09:40→20:39)
[2016-07-22] MEDS: ASCORBIC ACID 500 MG TAB PO SCH ×2 (09:41→20:33)
[2016-07-22] MEDS: ALLOPURINOL 300 MG TAB PO SCH (09:41)
[2016-07-22] MEDS: VITAMINS, MULTIPLE CAP PO SCH (11:26)
[2016-07-22] MEDS: VITAMINS (FOLGARD RX) TAB PO SCH (11:26)
--- NOTE | 2016-07-22 12:54 | GENMEDPROG ---
Chief Complaint: Slowly better. Still moderate confusion. Some low-grade fever yesterday. Notes Reviewed: Yes Events from last night noted and discussed with Clinical Staff Current Medication List: Reviewed Currently: Reports: Cough, Wheezing, ARMENDARIZ, SOB. Denies: Nausea and Vomiting, Abdominal Pain, Chest Pain DVT Prophylaxis: Yes - Physical Examination Vital Signs and I&O: Last Vital Signs Temp 98 F 07/22/16 05:38 Pulse 136 H 07/22/16 09:36 Resp 22 07/22/16 09:36 BP 106/79 07/22/16 09:36 Pulse Ox 92 07/22/16 09:36 Oxygen Pulse Oxygen Saturation 92 O2 Device Room Air Oxygen Flow Rate 1 Fraction of Inspired Oxygen ( FIO2) Intake & Output 07/19/16 07/20/16 07/21/16 07/22/16 23:59 23:59 23:59 23:59 Intake Total 2825 2941 1505 1090 Output Total 200 225 Balance 2625 2941 1280 1090 Patient's weight 97.182 kg 97.749 kg 98.203 kg 99.478 kg General: Alert, Mild distress, Well nourished. negative: Oriented x3, Cooperative, Well appearing HEENT: Normal, PERRLA, EOMI, Anicteric Sclera Neck: Non-tender, Full range of motion, Normal Trachea alignment, Normal inspection. negative: JVD Lymphatics: Normal. negative: Adenopathy Respiratory: Rhonchi, Tachypnea. negative: Rales Cardiovascular: Regular rate and rhythm, No Gallops,Rubs/Murmurs GI: Normal bowel sounds, Soft, Non tender, No hepatospenomegaly Extremities/Musculoskeletal: Normal pulses. negative: Tenderness, Swelling, Edema Skin: Warm,Dry and Intact, No rashes, No breakdown, No significant lesion Neurological: Normal speech, Strength at 5/5 X4 ext, Normal tone, Cranial nerves 3-12 NL Psych/Mental Status: Appropriate, Normal Affect, Confused Lab/DI/Studies Reviewed: Laboratory Results - last 24 hr 07/21/16 07/22/16 07/22/16 20:12 07:06 07:06 WBC 18.2 H RBC 3.51 L Hgb 10.0 L Hct 31.9 L MCV 91 MCH 28.4 MCHC 31.3 L RDW 18.3 H Plt Count 403 H MPV 8.2 Neut % (Auto) 82.1 H Lymph % (Auto) 10.7 L [place] % (Auto) 5.9 Eos % (Auto) 0.9 Baso % (Auto) 0.4 Absolute Neuts (auto) 14.92 H Absolute Lymphs (auto) 1.82 Sodium 148 H Potassium 3.7 Chloride 115 H Carbon Dioxide 22 Anion Gap 15 BUN 36 H Creatinine 1.40 H Estimated GFR (MDRD) 49 L Glucose 95 POC Capillary Glucose 356 H Calculated Osmolality 292 H Calcium 8.1 L Corrected Calcium 10.0 Total Bilirubin 0.8 AST 17 ALT 20 L Alkaline Phosphatase 137 Total Protein 5.2 L Albumin 2.1 L Lipase 1182 H - Assessment (1) Acute kidney injury Acute N17.9 - ACUTE KIDNEY FAILURE, UNSPECIFIED Comment/Plan: Steadily better. Continue IV fluids and monitor. (2) GI bleed Acute K92.2 - GASTROINTESTINAL HEMORRHAGE, UNSPECIFIED Qualifiers: GI bleed type/associated pathology: anorectal hemorrhage Qualified Code(s) : K62.5 - Hemorrhage of anus and rectum Comment/Plan: Hemoglobin stable with no evidence of active bleeding. Likely can resume Eliquis. Would hold on further evaluation given poor baseline functionality at this time. (3) Bronchopneumonia Acute J18.0 - BRONCHOPNEUMONIA, UNSPECIFIED ORGANISM Comment/Plan: Still moderate congestion and has been having some fever. Encourage out of bed as much as possible. (4) Hypokalemia Acute E87.6 - HYPOKALEMIA Comment/Plan: Replete with IV fluids (5) Elevated lipase Acute R74.8 - ABNORMAL LEVELS OF OTHER SERUM ENZYMES Comment/Plan: Recheck. Exam benign. (6) UTI (urinary tract infection) Acute N39.0 - URINARY TRACT INFECTION, SITE NOT SPECIFIED Qualifiers: Urinary tract infection type: acute cystitis Hematuria presence: without hematuria Qualified Code(s): N30.00 - Acute cystitis without hematuria Comment/Plan: Culture negative. DC antibiotics. (7) Atrial fibrillation Chronic I48.91 - UNSPECIFIED ATRIAL FIBRILLATION Qualifiers: Atrial fibrillation type: chronic Qualified Code(s): I48.2 - Chronic atrial fibrillation Comment/Plan: Continue home medications. Hold anticoagulation due to bleeding. Monitor on telemetry. (8) Dementia Acute F03.90 - UNSPECIFIED DEMENTIA WITHOUT BEHAVIORAL DISTURBANCE Qualifiers: Dementia type: Alzheimer's disease Alzheimer's disease onset: late-onset Dementia behavioral disturbance: without behavioral disturbance Qualified Code (s): G30.1 - Alzheimer's disease with late onset; F02.80 - Dementia in other diseases classified elsewhere without behavioral disturbance Comment/Plan: Unable to provide any meaningful history. (9) Parkinsons disease Acute G20 - PARKINSON'S DISEASE Comment/Plan: Continue Sinemet and monitor. Case Care Discussed with: Patient, Nursing Staff, Physical Therapy, Resource Management, Overhead Crane Inspector
[2016-07-22] MEDS: CEFTRIAXONE 1 GM in D5W 100 ML IV SCH (16:32)
[2016-07-22] MEDS: AZITHROMYCIN 500 MG in D5W 250 ML IV SCH (17:33)
[2016-07-22] MEDS: ACETAMINOPHEN 325 MG/TAB TABLET PO PRN (17:58)
[2016-07-22] MEDS: MIRTAZAPINE 15 MG TAB PO SCH (20:36)
[2016-07-23] MEDS: CARBIDOPA LEVODOPA PO SCH ×3 (05:06→22:42)
[2016-07-23] MEDS: BACLOFEN 10 MG TAB PO SCH ×3 (05:07→22:41)
[2016-07-23] MEDS: PANTOPRAZOLE 40 MG TAB PO SCH (05:07)
[2016-07-23] MEDS: SODIUM BICARBONATE 650 MG (10 GR) TAB PO SCH ×3 (05:09→22:42)
[2016-07-23] MEDS: PERPHENAZINE 2 MG TAB PO SCH ×3 (05:09→22:42)
[2016-07-23 07:21] LABS: AUTOMATED BASOPHIL 0.2 % (0-2); AUTOMATED EOSINOPHIL 1.9 % (0-5); AUTOMATED MONOCYTE 6.8 % (3-10); AUTOMATED NEUTROPHIL 78.1 % (45-76); MPV 8.2 fL (7.4-10.4)
[2016-07-23 07:34] LABS: BLOOD UREA NITROGEN 37 MG/DL (9-20); CALCIUM 7.8 MG/DL (8.4-10.2); CALCULATED OSMOLALITY 289 MOs/Kg (270-290); CHLORIDE 112 mEq/L (98-107); GLUCOSE 75 MG/DL (70-99); SODIUM LEVEL 146 mEq/L (137-146)
[2016-07-23] MEDS: ZINC SULFATE 220 MG CAP PO SCH (08:12)
[2016-07-23] MEDS: CALCIUM CARBONATE 500 MG TAB PO SCH ×2 (08:12→22:40)
[2016-07-23] MEDS: ALLOPURINOL 300 MG TAB PO SCH (08:12)
[2016-07-23] MEDS: NYSTATIN ORAL SUSP 5 ML PO SCH ×4 (08:12→22:40)
[2016-07-23] MEDS: METOPROLOL TARTRATE 50 MG TAB PO SCH ×2 (08:12→22:41)
[2016-07-23] MEDS: Docusate Sodium 100 MG CAP PO SCH ×2 (08:12→22:40)
[2016-07-23] MEDS: ASCORBIC ACID 500 MG TAB PO SCH ×2 (08:12→22:43)
[2016-07-23] MEDS: VITAMINS (FOLGARD RX) TAB PO SCH (13:19)
[2016-07-23] MEDS: VITAMINS, MULTIPLE CAP PO SCH (13:19)
--- NOTE | 2016-07-23 14:34 | GENMEDPROG ---
Chief Complaint: Finally a little better. Still moderate congestion. No evidence of active bleeding. Notes Reviewed: Yes Events from last night noted and discussed with Clinical Staff Current Medication List: Reviewed Currently: Reports: Cough, Wheezing, ARMENDARIZ, SOB. Denies: Nausea and Vomiting, Abdominal Pain, Chest Pain DVT Prophylaxis: Yes - Physical Examination Vital Signs and I&O: Last Vital Signs Temp 98.9 F 07/23/16 05:44 Pulse 106 07/23/16 08:12 Resp 16 07/23/16 05:44 BP 103/62 07/23/16 05:44 Pulse Ox 95 07/23/16 09:38 Oxygen Pulse Oxygen Saturation 95 O2 Device Nasal Cannula Oxygen Flow Rate 1 Fraction of Inspired Oxygen ( FIO2) Intake & Output 07/20/16 07/21/16 07/22/16 07/23/16 23:59 23:59 23:59 23:59 Intake Total 2941 1505 3020 608 Output Total 225 Balance 2941 1280 3020 608 Patient's weight 97.749 kg 98.203 kg 99.478 kg 100.953 kg General: Alert, Mild distress, Well nourished. negative: Oriented x3, Cooperative, Well appearing HEENT: Normal, PERRLA, EOMI, Anicteric Sclera Neck: Non-tender, Full range of motion, Normal Trachea alignment, Normal inspection. negative: JVD Lymphatics: Normal. negative: Adenopathy Respiratory: Rhonchi, Tachypnea. negative: Rales Cardiovascular: Regular rate and rhythm, No Gallops,Rubs/Murmurs GI: Normal bowel sounds, Soft, Non tender, No hepatospenomegaly Extremities/Musculoskeletal: Normal pulses. negative: Tenderness, Swelling, Edema Skin: Warm,Dry and Intact, No rashes, No breakdown, No significant lesion Neurological: Normal speech, Strength at 5/5 X4 ext, Normal tone, Cranial nerves 3-12 NL Psych/Mental Status: Appropriate, Normal Affect, Confused Lab/DI/Studies Reviewed: Laboratory Results - last 24 hr 07/23/16 07/23/16 06:24 06:24 WBC 15.6 H RBC 3.44 L Hgb 10.0 L Hct 31.5 L MCV 92 MCH 29.0 MCHC 31.6 L RDW 18.8 H Plt Count 382 MPV 8.2 Neut % (Auto) 78.1 H Lymph % (Auto) 13.0 L [place] % (Auto) 6.8 Eos % (Auto) 1.9 Baso % (Auto) 0.2 Absolute Neuts (auto) 12.17 H Absolute Lymphs (auto) 2.03 Sodium 146 Potassium 3.8 Chloride 112 H Carbon Dioxide 25 Anion Gap 13 BUN 37 H Creatinine 1.50 H Estimated GFR (MDRD) 46 L Glucose 75 Calculated Osmolality 289 Calcium 7.8 L - Assessment (1) Bronchopneumonia Acute J18.0 - BRONCHOPNEUMONIA, UNSPECIFIED ORGANISM Comment/Plan: Still some congestion but overall improving. This is been the main reason for prolonged hospitalization. Encourage activity and mobility as tolerated. Have encouraged incentive spirometry. Continue antibiotics and pulmonary toilet. (2) Acute kidney injury Acute N17.9 - ACUTE KIDNEY FAILURE, UNSPECIFIED Comment/Plan: Creatinine stable at baseline approximately 1.5. (3) GI bleed Acute K92.2 - GASTROINTESTINAL HEMORRHAGE, UNSPECIFIED Qualifiers: GI bleed type/associated pathology: anorectal hemorrhage Qualified Code(s) : K62.5 - Hemorrhage of anus and rectum Comment/Plan: Hemoglobin stable with no evidence of active bleeding. Likely can resume Eliquis. Would hold on further evaluation given poor baseline functionality at this time. (4) Hypokalemia Acute E87.6 - HYPOKALEMIA Comment/Plan: Replete with IV fluids (5) Elevated lipase Acute R74.8 - ABNORMAL LEVELS OF OTHER SERUM ENZYMES Comment/Plan: Recheck. Exam benign. (6) UTI (urinary tract infection) Acute N39.0 - URINARY TRACT INFECTION, SITE NOT SPECIFIED Qualifiers: Urinary tract infection type: acute cystitis Hematuria presence: without hematuria Qualified Code(s): N30.00 - Acute cystitis without hematuria Comment/Plan: Culture negative. DC antibiotics. (7) Atrial fibrillation Chronic I48.91 - UNSPECIFIED ATRIAL FIBRILLATION Qualifiers: Atrial fibrillation type: chronic Qualified Code(s): I48.2 - Chronic atrial fibrillation Comment/Plan: Continue home medications. Hold anticoagulation due to bleeding. Monitor on telemetry. (8) Dementia Acute F03.90 - UNSPECIFIED DEMENTIA WITHOUT BEHAVIORAL DISTURBANCE Qualifiers: Dementia type: Alzheimer's disease Alzheimer's disease onset: late-onset Dementia behavioral disturbance: without behavioral disturbance Qualified Code (s): G30.1 - Alzheimer's disease with late onset; F02.80 - Dementia in other diseases classified elsewhere without behavioral disturbance Comment/Plan: Unable to provide any meaningful history. (9) Parkinsons disease Acute G20 - PARKINSON'S DISEASE Comment/Plan: Continue Sinemet and monitor. Case Care Discussed with: Patient, Nursing Staff, Physical Therapy, Resource Management, Rat Trapper
[2016-07-23] MEDS: CEFTRIAXONE 1 GM in D5W 100 ML IV SCH (16:35)
[2016-07-23] MEDS: AZITHROMYCIN 500 MG in D5W 250 ML IV SCH ×2 (17:47→17:58)
[2016-07-23] MEDS: MIRTAZAPINE 15 MG TAB PO SCH (22:41)
[2016-07-24] MEDS: BACLOFEN 10 MG TAB PO SCH ×3 (06:44→20:41)
[2016-07-24] MEDS: CARBIDOPA LEVODOPA PO SCH ×3 (06:44→20:46)
[2016-07-24] MEDS: PANTOPRAZOLE 40 MG TAB PO SCH (06:44)
[2016-07-24] MEDS: SODIUM BICARBONATE 650 MG (10 GR) TAB PO SCH ×3 (06:45→20:46)
[2016-07-24] MEDS: PERPHENAZINE 2 MG TAB PO SCH ×3 (06:45→20:47)
[2016-07-24] MEDS: METOPROLOL TARTRATE 50 MG TAB PO SCH ×2 (07:54→20:45)
[2016-07-24] MEDS: CALCIUM CARBONATE 500 MG TAB PO SCH ×2 (07:54→20:46)
[2016-07-24] MEDS: Docusate Sodium 100 MG CAP PO SCH ×2 (07:54→20:40)
[2016-07-24] MEDS: NYSTATIN ORAL SUSP 5 ML PO SCH ×4 (07:54→20:45)
[2016-07-24] MEDS: ALLOPURINOL 300 MG TAB PO SCH (07:54)
[2016-07-24] MEDS: ASCORBIC ACID 500 MG TAB PO SCH ×2 (07:54→20:47)
[2016-07-24] MEDS: ZINC SULFATE 220 MG CAP PO SCH (07:54)
--- NOTE | 2016-07-24 10:42 | GENMEDPROG ---
Chief Complaint: A little better. Still moderate congestion and wheezing. As yet to get out of bed. No further bleeding. Notes Reviewed: Yes Events from last night noted and discussed with Clinical Staff Current Medication List: Reviewed Currently: Reports: Cough, Wheezing, ARMENDARIZ, SOB. Denies: Nausea and Vomiting, Abdominal Pain, Chest Pain DVT Prophylaxis: Yes - Physical Examination Vital Signs and I&O: Last Vital Signs Temp 98.5 F 07/24/16 06:00 Pulse 133 H 07/24/16 08:00 Resp 18 07/24/16 06:00 BP 127/64 07/24/16 07:54 Pulse Ox 96 07/24/16 08:00 Oxygen Pulse Oxygen Saturation 96 O2 Device Nasal Cannula Oxygen Flow Rate 2 Fraction of Inspired Oxygen ( FIO2) Intake & Output 07/21/16 07/22/16 07/23/16 07/24/16 23:59 23:59 23:59 23:59 Intake Total 1505 3020 1035 Output Total 225 125 Balance 1280 3020 1035 -125 Patient's weight 98.203 kg 99.478 kg 100.953 kg 102.058 kg General: Alert, Mild distress, Well nourished. negative: Oriented x3, Cooperative, Well appearing HEENT: Normal, PERRLA, EOMI, Anicteric Sclera Neck: Non-tender, Full range of motion, Normal Trachea alignment, Normal inspection. negative: JVD Lymphatics: Normal. negative: Adenopathy Respiratory: Rhonchi, Tachypnea. negative: Rales Cardiovascular: Regular rate and rhythm, No Gallops,Rubs/Murmurs GI: Normal bowel sounds, Soft, Non tender, No hepatospenomegaly Extremities/Musculoskeletal: Normal pulses. negative: Tenderness, Swelling, Edema Skin: Warm,Dry and Intact, No rashes, No breakdown, No significant lesion Neurological: Normal speech, Strength at 5/5 X4 ext, Normal tone, Cranial nerves 3-12 NL Psych/Mental Status: Appropriate, Normal Affect, Confused - Assessment (1) Bronchopneumonia Acute J18.0 - BRONCHOPNEUMONIA, UNSPECIFIED ORGANISM Comment/Plan: Slowly better. Still moderate congestion. Maybe a little better today than yesterday. Have encouraged activity and mobility. Continue antibiotics pulmonary toilet. (2) Acute kidney injury Acute N17.9 - ACUTE KIDNEY FAILURE, UNSPECIFIED Comment/Plan: Creatinine stable at baseline approximately 1.5. (3) GI bleed Acute K92.2 - GASTROINTESTINAL HEMORRHAGE, UNSPECIFIED Qualifiers: GI bleed type/associated pathology: anorectal hemorrhage Qualified Code(s) : K62.5 - Hemorrhage of anus and rectum Comment/Plan: Hemoglobin stable with no evidence of active bleeding. Will restart Eliquis. Would hold on further evaluation given poor baseline functionality at this time. (4) Hypokalemia Acute E87.6 - HYPOKALEMIA Comment/Plan: Replete with IV fluids (5) Elevated lipase Acute R74.8 - ABNORMAL LEVELS OF OTHER SERUM ENZYMES Comment/Plan: Recheck. Exam benign. (6) UTI (urinary tract infection) Acute N39.0 - URINARY TRACT INFECTION, SITE NOT SPECIFIED Qualifiers: Urinary tract infection type: acute cystitis Hematuria presence: without hematuria Qualified Code(s): N30.00 - Acute cystitis without hematuria Comment/Plan: Culture negative. DC antibiotics. (7) Atrial fibrillation Chronic I48.91 - UNSPECIFIED ATRIAL FIBRILLATION Qualifiers: Atrial fibrillation type: chronic Qualified Code(s): I48.2 - Chronic atrial fibrillation Comment/Plan: Continue home medications. Hold anticoagulation due to bleeding. Monitor on telemetry. (8) Dementia Acute F03.90 - UNSPECIFIED DEMENTIA WITHOUT BEHAVIORAL DISTURBANCE Qualifiers: Dementia type: Alzheimer's disease Alzheimer's disease onset: late-onset Dementia behavioral disturbance: without behavioral disturbance Qualified Code (s): G30.1 - Alzheimer's disease with late onset; F02.80 - Dementia in other diseases classified elsewhere without behavioral disturbance Comment/Plan: Unable to provide any meaningful history. (9) Parkinsons disease Acute G20 - PARKINSON'S DISEASE Comment/Plan: Continue Sinemet and monitor. Case Care Discussed with: Patient, Nursing Staff, Resource Management, Respiratory Therapy, Air Saw Operator
[2016-07-24] MEDS: APIXABAN 5 MG TABLET PO SCH ×2 (12:48→20:40)
[2016-07-24] MEDS: VITAMINS (FOLGARD RX) TAB PO SCH (12:48)
[2016-07-24] MEDS: VITAMINS, MULTIPLE CAP PO SCH (12:49)
[2016-07-24] MEDS: METHYLPREDNISOLONE 40 MG/1 ML VIAL IV SCH ×2 (12:49→20:37)
[2016-07-24] MEDS: CEFTRIAXONE 1 GM in D5W 100 ML IV SCH (16:51)
[2016-07-24] MEDS: MIRTAZAPINE 15 MG TAB PO SCH (20:46)
[2016-07-25] MEDS: METHYLPREDNISOLONE 40 MG/1 ML VIAL IV SCH ×3 (04:57→21:46)
[2016-07-25] MEDS: BACLOFEN 10 MG TAB PO SCH ×3 (05:03→21:50)
[2016-07-25] MEDS: PANTOPRAZOLE 40 MG TAB PO SCH (05:04)
[2016-07-25] MEDS: CARBIDOPA LEVODOPA PO SCH ×3 (05:04→22:01)
[2016-07-25] MEDS: PERPHENAZINE 2 MG TAB PO SCH ×3 (05:05→22:02)
[2016-07-25] MEDS: SODIUM BICARBONATE 650 MG (10 GR) TAB PO SCH ×3 (05:05→22:01)
[2016-07-25 07:16] LABS: AUTOMATED BASOPHIL 0.2 % (0-2); AUTOMATED LYMPH 8.5 % (17-44); AUTOMATED MONOCYTE 1.5 % (3-10); AUTOMATED NEUTROPHIL 89.8 % (45-76)
[2016-07-25 07:43] LABS: BLOOD UREA NITROGEN 30 MG/DL (9-20); CALCIUM 7.9 MG/DL (8.4-10.2); CALCULATED OSMOLALITY 279 MOs/Kg (270-290); CHLORIDE 108 mEq/L (98-107); GLUCOSE 137 MG/DL (70-99); SODIUM LEVEL 141 mEq/L (137-146)
[2016-07-25] MEDS: NYSTATIN ORAL SUSP 5 ML PO SCH ×4 (08:22→22:00)
[2016-07-25] MEDS: APIXABAN 5 MG TABLET PO SCH ×2 (08:22→21:47)
[2016-07-25] MEDS: ASCORBIC ACID 500 MG TAB PO SCH ×2 (08:23→22:02)
[2016-07-25] MEDS: ZINC SULFATE 220 MG CAP PO SCH (08:23)
[2016-07-25] MEDS: METOPROLOL TARTRATE 50 MG TAB PO SCH ×2 (08:23→22:06)
[2016-07-25] MEDS: ALLOPURINOL 300 MG TAB PO SCH (08:23)
[2016-07-25] MEDS: CALCIUM CARBONATE 500 MG TAB PO SCH ×2 (08:24→22:00)
[2016-07-25] MEDS: VITAMINS (FOLGARD RX) TAB PO SCH ×2 (08:24→11:59)
[2016-07-25] MEDS: Docusate Sodium 100 MG CAP PO SCH ×2 (08:24→21:47)
[2016-07-25] MEDS: VITAMINS, MULTIPLE CAP PO SCH (12:00)
[2016-07-25] MEDS: CEFTRIAXONE 1 GM in D5W 100 ML IV SCH (15:55)
--- NOTE | 2016-07-25 18:18 | GENMEDPROG ---
Subjective Note: Patient in bed responsive follows commands., confused and disoriented. Still coughing producing fair amount thick sputum no hemoptysis. Denies any pain Notes Reviewed: Yes Events from last night noted and discussed with Clinical Staff Current Medication List: Reviewed Currently: Reports: Cough, Wheezing, ARMENDARIZ, SOB, Sputum, Reflux Sx. Denies: Nausea and Vomiting, Abdominal Pain, Chest Pain DVT Prophylaxis: Yes - Physical Examination Vital Signs and I&O: Last Vital Signs Temp 98.5 F 07/25/16 14:40 Pulse 103 07/25/16 14:40 Resp 20 07/25/16 14:40 BP 106/70 07/25/16 14:40 Pulse Ox 96 07/25/16 14:40 Oxygen Pulse Oxygen Saturation 96 O2 Device Nasal Cannula Oxygen Flow Rate 2 Fraction of Inspired Oxygen ( FIO2) Intake & Output 07/22/16 07/23/16 07/24/16 07/25/16 23:59 23:59 23:59 23:59 Intake Total 3020 1035 1100 630 Output Total 300 Balance 3020 1035 800 630 Patient's weight 99.478 kg 100.953 kg 102.058 kg 101.35 kg General: Alert, Mild distress, Well nourished. negative: Oriented x3, Cooperative, Well appearing HEENT: Normal, PERRLA, EOMI, Anicteric Sclera Neck: Non-tender, Full range of motion, Normal Trachea alignment, Normal inspection. negative: JVD Lymphatics: Normal. negative: Adenopathy Respiratory: Rhonchi, Tachypnea. negative: Rales Cardiovascular: Regular rate and rhythm, Normal S1, No Gallops,Rubs/Murmurs, Normal S2, Murmurs GI: Normal bowel sounds, Soft, Non tender, No hepatospenomegaly Extremities/Musculoskeletal: Normal pulses. negative: Tenderness, Swelling, Edema Skin: Warm,Dry and Intact, No rashes, No breakdown, No significant lesion Neurological: Normal speech, Strength at 5/5 X4 ext, Normal tone, Cranial nerves 3-12 NL Psych/Mental Status: Appropriate, Normal Affect, Anxious, Confused Lab/DI/Studies Reviewed: Allergies hydrocodone Allergy (Verified 07/19/16 13:57) Unknown shrimp Allergy (Verified 07/19/16 13:57) Unknown Sulfa (Sulfonamide Antibiotics) Allergy (Verified 07/19/16 13:57) Unknown Last Vital Signs Temp 98.5 F 07/25/16 14:40 Pulse 103 07/25/16 14:40 Resp 20 07/25/16 14:40 BP 106/70 07/25/16 14:40 Pulse Ox 96 07/25/16 14:40 07/25/16 06:50 07/25/16 06:50 Abnormal Lab Results 07/25/16 07/25/16 06:50 06:50 WBC 11.3 H RBC 3.31 L Hgb 9.7 L Hct 30.0 L MCHC 32.3 L RDW 18.7 H Neut % (Auto) 89.8 H Lymph % (Auto) 8.5 L [place] % (Auto) 1.5 L Absolute Neuts (auto) 10.06 H Chloride 108 H BUN 30 H Creatinine 1.30 H Estimated GFR (MDRD) 54 L Glucose 137 H Calcium 7.9 L - Assessment (1) Bronchopneumonia Acute J18.0 - BRONCHOPNEUMONIA, UNSPECIFIED ORGANISM Comment/Plan: Continue IV antibiotics IV steroids and nebulized bronchodilators. Continue mucolytics and aggressive pulmonary care (2) GI bleed Acute K92.2 - GASTROINTESTINAL HEMORRHAGE, UNSPECIFIED Qualifiers: GI bleed type/associated pathology: anorectal hemorrhage Qualified Code(s) : K62.5 - Hemorrhage of anus and rectum Comment/Plan: Hemoglobin stable continue PPI. (3) Acute kidney injury Acute N17.9 - ACUTE KIDNEY FAILURE, UNSPECIFIED Comment/Plan: Renal function close to baseline (4) Dementia Acute F03.90 - UNSPECIFIED DEMENTIA WITHOUT BEHAVIORAL DISTURBANCE Qualifiers: Dementia type: Alzheimer's disease Alzheimer's disease onset: late-onset Dementia behavioral disturbance: without behavioral disturbance Qualified Code (s): G30.1 - Alzheimer's disease with late onset; F02.80 - Dementia in other diseases classified elsewhere without behavioral disturbance Comment/Plan: Unable to provide any meaningful history. Continue supportive care (5) Parkinsons disease Acute G20 - PARKINSON'S DISEASE Comment/Plan: Continue Sinemet and monitor. (6) Dysphagia Acute R13.10 - DYSPHAGIA, UNSPECIFIED Qualifiers: Dysphagia type: oropharyngeal phase Qualified Code(s): R13.12 - Dysphagia, oropharyngeal phase Comment/Plan: Continue aspiration precautions and special diet Case Care Discussed with: Patient, Nursing Staff, Respiratory Therapy, Industrial Recruiter Education/Counseling Given To: Patient Education/Counseling Given Regarding: Diagnosis, Treatment, Prognosis, Follow Up Total Time: 45 min . Critical Care: No Code: 11566 (12+)
[2016-07-25] MEDS: Albuterol/Ipratropium Neb 3 ML NEB NEB SCH (20:31)
[2016-07-25] MEDS: MIRTAZAPINE 15 MG TAB PO SCH (22:01)
[2016-07-26] MEDS: Albuterol/Ipratropium Neb 3 ML NEB NEB SCH ×4 (02:05→19:35)
[2016-07-26] MEDS: METHYLPREDNISOLONE 40 MG/1 ML VIAL IV SCH ×2 (05:47→11:21)
[2016-07-26] MEDS: BACLOFEN 10 MG TAB PO SCH ×3 (05:51→20:28)
[2016-07-26] MEDS: PERPHENAZINE 2 MG TAB PO SCH ×3 (05:52→20:28)
[2016-07-26] MEDS: SODIUM BICARBONATE 650 MG (10 GR) TAB PO SCH ×3 (05:52→20:27)
[2016-07-26] MEDS: CARBIDOPA LEVODOPA PO SCH ×3 (05:52→20:29)
[2016-07-26] MEDS: PANTOPRAZOLE 40 MG TAB PO SCH (05:54)
[2016-07-26] MEDS: NYSTATIN ORAL SUSP 5 ML PO SCH ×4 (08:12→20:29)
[2016-07-26] MEDS: ALLOPURINOL 300 MG TAB PO SCH (08:13)
[2016-07-26] MEDS: METOPROLOL TARTRATE 50 MG TAB PO SCH ×2 (08:13→20:28)
[2016-07-26] MEDS: Docusate Sodium 100 MG CAP PO SCH ×2 (08:13→20:28)
[2016-07-26] MEDS: ZINC SULFATE 220 MG CAP PO SCH (08:13)
[2016-07-26] MEDS: CALCIUM CARBONATE 500 MG TAB PO SCH ×2 (08:14→20:28)
[2016-07-26] MEDS: APIXABAN 5 MG TABLET PO SCH ×2 (08:14→20:27)
[2016-07-26] MEDS: ASCORBIC ACID 500 MG TAB PO SCH ×2 (08:14→20:28)
[2016-07-26] MEDS: VITAMINS (FOLGARD RX) TAB PO SCH (11:20)
[2016-07-26] MEDS: VITAMINS, MULTIPLE CAP PO SCH (11:20)
[2016-07-26] MEDS ORDERED: Medication Special Instructions SCH (14:00)
[2016-07-26] MEDS: CEFTRIAXONE 1 GM in D5W 100 ML IV SCH (15:50)
--- NOTE | 2016-07-26 18:55 | GENMEDPROG ---
Subjective Note: Patient in bed more responsive and interactive today. Still coughing producing small amount of sputum no hemoptysis. Tolerating p.o. intake. Notes Reviewed: Yes Events from last night noted and discussed with Clinical Staff Current Medication List: Reviewed Currently: Reports: Cough, Wheezing, ARMENDARIZ, SOB, Sputum, Reflux Sx. Denies: Nausea and Vomiting, Abdominal Pain, Chest Pain DVT Prophylaxis: Yes - Physical Examination Vital Signs and I&O: Last Vital Signs Temp 98.9 F 07/26/16 16:36 Pulse 112 07/26/16 16:36 Resp 20 07/26/16 16:36 BP 119/67 07/26/16 16:36 Pulse Ox 94 07/26/16 16:36 Oxygen Pulse Oxygen Saturation 94 O2 Device Nasal Cannula Oxygen Flow Rate 1.5 Fraction of Inspired Oxygen ( FIO2) Intake & Output 07/23/16 07/24/16 07/25/16 07/26/16 23:59 23:59 23:59 23:59 Intake Total 1035 1100 750 870 Output Total 300 Balance 1035 800 750 870 Patient's weight 100.953 kg 102.058 kg 101.35 kg 100.499 kg General: Alert, Mild distress, Well nourished. negative: Oriented x3, Cooperative, Well appearing HEENT: Normal, PERRLA, EOMI, Anicteric Sclera Neck: Non-tender, Full range of motion, Normal Trachea alignment, Normal inspection. negative: JVD Lymphatics: Normal. negative: Adenopathy Respiratory: Diminished, Rhonchi, Tachypnea. negative: Rales Cardiovascular: Regular rate and rhythm, Normal S1, No Gallops,Rubs/Murmurs, Normal S2, Murmurs GI: Normal bowel sounds, Soft, Non tender, No hepatospenomegaly Extremities/Musculoskeletal: Normal pulses. negative: Tenderness, Swelling, Edema Skin: Warm,Dry and Intact, No rashes, No breakdown, No significant lesion Neurological: Normal speech, Strength at 5/5 X4 ext, Normal tone, Cranial nerves 3-12 NL Psych/Mental Status: Appropriate, Normal Affect, Anxious, Confused - Assessment (1) Bronchopneumonia Acute J18.0 - BRONCHOPNEUMONIA, UNSPECIFIED ORGANISM Comment/Plan: Slow progress on maximal pulmonary therapy. (2) GI bleed Acute K92.2 - GASTROINTESTINAL HEMORRHAGE, UNSPECIFIED Qualifiers: GI bleed type/associated pathology: anorectal hemorrhage Qualified Code(s) : K62.5 - Hemorrhage of anus and rectum Comment/Plan: Hemoglobin stable continue PPI. (3) Acute kidney injury Acute N17.9 - ACUTE KIDNEY FAILURE, UNSPECIFIED Comment/Plan: Renal function close to baseline (4) Dementia Acute F03.90 - UNSPECIFIED DEMENTIA WITHOUT BEHAVIORAL DISTURBANCE Qualifiers: Dementia type: Alzheimer's disease Alzheimer's disease onset: late-onset Dementia behavioral disturbance: without behavioral disturbance Qualified Code (s): G30.1 - Alzheimer's disease with late onset; F02.80 - Dementia in other diseases classified elsewhere without behavioral disturbance Comment/Plan: Unable to provide any meaningful history. Continue supportive care (5) Parkinsons disease Acute G20 - PARKINSON'S DISEASE Comment/Plan: Continue Sinemet and monitor. (6) Dysphagia Acute R13.10 - DYSPHAGIA, UNSPECIFIED Qualifiers: Dysphagia type: oropharyngeal phase Qualified Code(s): R13.12 - Dysphagia, oropharyngeal phase Comment/Plan: Continue aspiration precautions and special diet Case Care Discussed with: Patient, Nursing Staff, Respiratory Therapy, Him Tech Education/Counseling Given To: Patient Education/Counseling Given Regarding: Diagnosis, Treatment, Prognosis, Follow Up Total Time: 45 min . Critical Care: No Code: 47972 (12+)
[2016-07-26] MEDS ORDERED: MIRTAZAPINE 15 MG TAB PO SCH (21:00)
[2016-07-27] MEDS: METHYLPREDNISOLONE 40 MG/1 ML VIAL IV SCH ×2 (00:10→11:02)
[2016-07-27] MEDS: Albuterol/Ipratropium Neb 3 ML NEB NEB SCH ×3 (02:29→13:15)
[2016-07-27] MEDS: PANTOPRAZOLE 40 MG TAB PO SCH (05:07)
[2016-07-27] MEDS: BACLOFEN 10 MG TAB PO SCH ×2 (05:09→13:25)
[2016-07-27] MEDS: CARBIDOPA LEVODOPA PO SCH ×2 (05:09→13:25)
[2016-07-27] MEDS: PERPHENAZINE 2 MG TAB PO SCH ×2 (05:09→13:25)
[2016-07-27] MEDS: SODIUM BICARBONATE 650 MG (10 GR) TAB PO SCH ×2 (05:09→13:25)
[2016-07-27 05:18] VITALS: BMI 32.5
[2016-07-27] MEDS: APIXABAN 5 MG TABLET PO SCH (08:02)
[2016-07-27] MEDS: NYSTATIN ORAL SUSP 5 ML PO SCH ×2 (08:02→11:02)
[2016-07-27] MEDS: Docusate Sodium 100 MG CAP PO SCH (08:02)
[2016-07-27] MEDS: ALLOPURINOL 300 MG TAB PO SCH (08:02)
[2016-07-27] MEDS: METOPROLOL TARTRATE 50 MG TAB PO SCH (08:02)
[2016-07-27] MEDS: CALCIUM CARBONATE 500 MG TAB PO SCH (08:02)
[2016-07-27] MEDS: ZINC SULFATE 220 MG CAP PO SCH (08:02)
[2016-07-27] MEDS: ASCORBIC ACID 500 MG TAB PO SCH (08:03)
[2016-07-27] MEDS: ENSURE PUDDING CHOCOLATE 5 OZ PO SCH ×2 (08:06→13:25)
[2016-07-27] MEDS: VITAMINS, MULTIPLE CAP PO SCH (11:02)
[2016-07-27] MEDS: VITAMINS (FOLGARD RX) TAB PO SCH (11:02)
[2016-07-27 11:58] VITALS: TEMP 98.5
--- NOTE | 2016-07-27 13:07 | PCM.DCS92 ---
- Final/Secondary Discharge Diagnosis (1) Bronchopneumonia Resolved J18.0 - BRONCHOPNEUMONIA, UNSPECIFIED ORGANISM Present on Admission: Yes Comment: Slow progress on maximal pulmonary therapy. (2) GI bleed Resolved K92.2 - GASTROINTESTINAL HEMORRHAGE, UNSPECIFIED Present on Admission: Yes anorectal hemorrhage K62.5 - Hemorrhage of anus and rectum Comment: Hemoglobin stable continue PPI. (3) Acute kidney injury Resolved N17.9 - ACUTE KIDNEY FAILURE, UNSPECIFIED Present on Admission: Yes Comment: Renal function close to baseline (4) Dementia Chronic F03.90 - UNSPECIFIED DEMENTIA WITHOUT BEHAVIORAL DISTURBANCE Present on Admission: Yes Alzheimer's disease late-onset without behavioral disturbance G30.1 - Alzheimer's disease with late onset; F02.80 - Dementia in other diseases classified elsewhere without behavioral disturbance Comment: Unable to provide any meaningful history. Continue supportive care (5) Parkinsons disease Chronic G20 - PARKINSON'S DISEASE Present on Admission: Yes Comment: Continue Sinemet and monitor. (6) Dysphagia Chronic R13.10 - DYSPHAGIA, UNSPECIFIED Present on Admission: Yes oropharyngeal phase R13.12 - Dysphagia, oropharyngeal phase Comment: Continue aspiration precautions and special diet Discharge Disposition: Detention Facility Discharge Condition: Improved Cognitive Discharge Status: Unable to communicate needs Fuctional Discharge Status: Wheelchair Assistance, Fall Risk, Deconditioning Physician Follow up/Referrals: Anyi Estrella MD [Primary Care Provider] - One Week New Prescriptions: Amoxicillin/Potassium Clav [Augmentin Es-600 Suspension] 600 mg PO TIDAC #10 susp.recon Albuterol/Ipratropium Neb [Duoneb] 3 ml NEB Q6H PRN #1 box PRN Reason: Shortness Of Breath Mirtazapine 30 mg PO HS #90 tab Prednisone 10 mg PO DAILY #30 tab.ds.pk Senna Concentrate [Senokot] 1 tab PO HS #120 tab O2 Device: Nasal Cannula Oxygen to be used after Discharge: Continuous Diet at Discharge: Other ([facility] soft) Activity: As Tolerated, Limited Discontinue use of:: Alcohol, All Illegal Substances, All Types of Tobacco - DC Summary Notes Hospital Course Note:: Discharge summary on patient named ADY KAUFFMAN admitted to [facility] on 07/19/16 by Michael Terrell MD. Date of discharge is []. Patient was initially brought [facility] emergency room [facility] on July 19 for evaluation of worsening difficulties breathing cough phlegm production and heme-positive stools. Please refer to the admission for further details. ED workup was undertaken patient was found stool impacted, dehydrated with sodium of 150 and BUN of 66 and cr of 1.9, he was also found hypoxic with PaO2 of [address] abdomen and pelvis was obtained which showed large amount of stool in the rectum consistent with stool impaction minimal left pleural effusion, mild interstitial densities at both lung bases mild cholelithiasis and bilateral renal atrophy with cortical scarring. Patient is admitted to general medical floor his liquids was withheld. Aggressive bowel regimen was provided with good results. Patient required IV antibiotics for bronchopneumonia, due to significant bronchospasm he also required nebulized bronchodilators. His pulmonary status has slowly improved and stabilized. Patient seen evaluated by speech therapy and required mechanical soft diet with nectar thick liquids. His hemoglobin was monitored closely and overall remained stable oscillating between 9.5 and 10.5. Gentle IV hydration was provided and his discharge creatinine was 1.3 and his discharge sodium was 141. Patient mentation has improved and stabilized, he remained confused and confabulatory but by the time of discharge was fully alert oriented and interactive. There was no behavior problems related to underlying dementia no anger agitation or hostility. Was felt that by July 27 patient has reached maximum benefit of inpatient therapy and in clinically improved condition he has been discharged [facility] for [facility] care. Total Time: 40m min. Code: 74123 (>30min.) - Physical Exam Vital Signs: Last Vital Signs Temp 97.9 F 07/27/16 11:30 Pulse 118 07/27/16 11:30 Resp 18 07/27/16 11:30 BP 112/69 07/27/16 11:30 Pulse Ox 94 07/27/16 11:30 Oxygen Pulse Oxygen Saturation 94 O2 Device Room Air Oxygen Flow Rate 1.5 Fraction of Inspired Oxygen ( FIO2) Constitutional: Alert, Confused, Distress. negative: Well appearing (Severely chronically ill-appearing) Oriented to: Person - HEENT Head: Normal. negative: Deformity, Laceration Eye: Normal, Pale Conjunctiva. negative: Conjunctival Injection Oropharynx: Normal. negative: Membranes Dry Tympanic Membrane: Normal ENT EAC: Normal Nose: No Symptoms Reported. negative: Congestion, Discharge - Respiratory/Cardiovascular Respiratory: Diminished, Rhonchi. negative: Rales Cardiovascular: Normal, Systolic murmur - GI Auscultation: Normal Palpation: Normal Tenderness: Non tender Rectal Exam: Deferred, Heme positive stool Stool: Brown - Exam Deferred: Yes - Musculoskeletal Back: Abrasion Extremities: Edema (Mild peripheral edema), Pedal Pulse (PALPABLE), Radial Pulse (PALPABLE). negative: Clubbing, Cyanosis - Integumentary Skin: Normal, Warm, Dry Lymphatics: Normal. negative: Adenopathy - Neurologic Memory Impaired: Short-term, Long-term Motor Function: Abnormal Cranial Nerve: Normal Cerebellar: Ataxia, Unable to Test Mood Description: Anxious, Flat Thought: Other (Confused and unable provide any history. Does not follow commands for me) Perception: negative: Normal - Other Exam Other Exam Findings: Allergies hydrocodone Allergy (Verified 07/19/16 13:57) Unknown shrimp Allergy (Verified 07/19/16 13:57) Unknown Sulfa (Sulfonamide Antibiotics) Allergy (Verified 07/19/16 13:57) Unknown Discharge Home Medication List Acetaminophen [Tylenol] 650 mg PO Q6H PRN 07/19/16 [History Confirmed 07/19/16] Allopurinol [Zyloprim] 300 mg PO DAILY 07/19/16 [History Confirmed 07/19/16] Apixaban [Eliquis] 2.5 mg PO BID 07/19/16 [History Confirmed 07/19/16] Ascorbic Acid [Vitamin C] 500 mg PO BID 07/19/16 [History Confirmed 07/19/16] Baclofen 5 mg PO TID 07/19/16 [History Confirmed 07/19/16] Calcium Carbonate 500 mg PO BID 07/19/16 [History Confirmed 07/19/16] Carbidopa/Levodopa [Sinemet 10-100 mg Tablet] 1 tab PO TID 07/19/16 [History Confirmed 07/19/16] Guaifenesin [Humabid, Mucinex] 600 mg PO Q12H 07/19/16 [History Confirmed ] Guaifenesin [Robitussin] 10 ml PO Q6H 07/19/16 [History Confirmed 07/19/16] Lmfol Ca/Acetyl/Mb12/Algal Oil [Cerefolin Nac Caplet] 1 tab PO DAILY 07/19/16 [ History Confirmed 07/19/16] Med Pass 60 ml PO TID 07/19/16 [History Confirmed 07/19/16] Metoprolol Tartrate 50 mg PO BID 07/19/16 [History Confirmed 07/19/16] Multivitamin [One Daily] 1 tab PO DAILY 07/19/16 [History Confirmed 07/19/16] Nystatin 5 ml PO QID 07/19/16 [History Confirmed 07/19/16] Omeprazole 20 mg PO DAILY 07/19/16 [History Confirmed 07/19/16] Perphenazine 2 mg PO TID 07/19/16 [History Confirmed 07/19/16] Sodium Bicarbonate 650 mg PO TID 07/19/16 [History Confirmed 07/19/16] Zinc Sulfate 220 mg PO DAILY 07/19/16 [History Confirmed 07/19/16] Albuterol/Ipratropium Neb [Duoneb] 3 ml NEB Q6H PRN #1 box 07/27/16 [Rx] Amoxicillin/Potassium Clav [Augmentin Es-600 Suspension] 600 mg PO TIDAC #10 susp.recon 07/27/16 [Rx] Mirtazapine 30 mg PO HS #90 tab 07/27/16 [Rx] Prednisone 10 mg PO DAILY #30 tab.ds.pk 07/27/16 [Rx] Senna Concentrate [Senokot] 1 tab PO HS #120 tab 07/27/16 [Rx] New Discharge Medications (Rx) Albuterol/Ipratropium Neb [Duoneb] 3 ml NEB Q6H PRN #1 box 07/27/16 [Rx] Amoxicillin/Potassium Clav [Augmentin Es-600 Suspension] 600 mg PO TIDAC #10 susp.recon 07/27/16 [Rx] Mirtazapine 30 mg PO HS #90 tab 07/27/16 [Rx] Prednisone 10 mg PO DAILY #30 tab.ds.pk 07/27/16 [Rx] Senna Concentrate [Senokot] 1 tab PO HS #120 tab 07/27/16 [Rx] Home Medications Acetaminophen [Tylenol] 650 mg PO Q6H PRN 07/19/16 Allopurinol [Zyloprim] 300 mg PO DAILY 07/19/16 Apixaban [Eliquis] 2.5 mg PO BID 07/19/16 Ascorbic Acid [Vitamin C] 500 mg PO BID 07/19/16 Baclofen 5 mg PO TID 07/19/16 Calcium Carbonate 500 mg PO BID 07/19/16 Carbidopa/Levodopa [Sinemet 10-100 mg Tablet] 1 tab PO TID 07/19/16 Guaifenesin [Humabid, Mucinex] 600 mg PO Q12H 07/19/16 Guaifenesin [Robitussin] 10 ml PO Q6H 07/19/16 Lmfol Ca/Acetyl/Mb12/Algal Oil [Cerefolin Nac Caplet] 1 tab PO DAILY 07/19/16 Med Pass 60 ml PO TID 07/19/16 Metoprolol Tartrate 50 mg PO BID 07/19/16 Multivitamin [One Daily] 1 tab PO DAILY 07/19/16 Nystatin 5 ml PO QID 07/19/16 Omeprazole 20 mg PO DAILY 07/19/16 Perphenazine 2 mg PO TID 07/19/16 Sodium Bicarbonate 650 mg PO TID 07/19/16 Zinc Sulfate 220 mg PO DAILY 07/19/16 Albuterol/Ipratropium Neb [Duoneb] 3 ml NEB Q6H PRN #1 box 07/27/16 Amoxicillin/Potassium Clav [Augmentin Es-600 Suspension] 600 mg PO TIDAC #10 susp.recon 07/27/16 Mirtazapine 30 mg PO HS #90 tab 07/27/16 Prednisone 10 mg PO DAILY #30 tab.ds.pk 07/27/16 Senna Concentrate [Senokot] 1 tab PO HS #120 tab 07/27/16 07/25/16 06:50 07/25/16 06:50 Microbiology 07/19/16 14:30 Blood Blood Culture - Final No growth aerobically or anaerobically at 120 hours. NORMAL VALUE = No growth 07/19/16 14:16 Blood Blood Culture - Final No growth aerobically or anaerobically at 120 hours. NORMAL VALUE = No growth 07/19/16 15:00 Urine - Clean Catch - Midstream Urine Culture - Final No growth <10,00O CFU/ml Active Problems Acute kidney injury (Acute) N17.9 Renal function close to baseline Bronchopneumonia (Acute) J18.0 Slow progress on maximal pulmonary therapy. Chronic renal disease (Acute) N18.9 Dementia (Acute) F03.90 Unable to provide any meaningful history. Continue supportive care Dysphagia (Acute) R13.10 Continue aspiration precautions and special diet Elevated lipase (Acute) R74.8 Recheck. Exam benign. GI bleed (Acute) K92.2 Hemoglobin stable continue PPI. Hypokalemia (Acute) E87.6 Replete with IV fluids Parkinsons disease (Acute) G20 Continue Sinemet and monitor. UTI (urinary tract infection) (Acute) N39.0 Culture negative. DC antibiotics. Atrial fibrillation (Chronic) I48.91 Continue home medications. Hold anticoagulation due to bleeding. Monitor on telemetry. Last Vital Signs Temp 97.9 F 07/27/16 11:30 Pulse 118 07/27/16 11:30 Resp 18 07/27/16 11:30 BP 112/69 07/27/16 11:30 Pulse Ox 94 07/27/16 11:30 Patient Name: ADY KAUFFMAN LOC: ED : 1940 AGE: 76 Order Date:07/19/16 Date of Service: Report # [id number] Ord Physician: Hayden Hurst DO Exam # [id number] Emergency Physician: Hayden Hurst DO Exam(s): [id number] CT/CT ABD-PELV W/O IV CM CLINICAL DATA: Rectal bleeding. EXAM: CT ABDOMEN AND PELVIS WITHOUT CONTRAST TECHNIQUE: Multidetector CT imaging of the abdomen and pelvis was performed following the standard protocol without IV contrast. COMPARISON: None. FINDINGS: Mild multilevel degenerative disc disease is noted in lower lumbar spine. Minimal left pleural effusion is noted. Mild interstitial densities are noted posteriorly in both lung bases which may represent scarring or edema. Mild cholelithiasis is noted. No focal abnormality is noted in the liver, spleen or pancreas on these unenhanced images. Adrenal glands appear normal. Bilateral renal atrophy with cortical scarring is noted. Probable nonobstructive calculus is seen in upper pole collecting system of left kidney. No hydronephrosis or renal obstruction is noted. There is no evidence of bowel obstruction. Stool is noted throughout the colon, with a large amount of stool seen in the rectum concerning for impaction. Urinary bladder is minimally distended. Prostatic calcifications are noted. Atherosclerosis of abdominal aorta is noted without aneurysm formation. IMPRESSION: Minimal left pleural effusion is noted. Mild interstitial densities are noted posteriorly in both lung bases which may represent scarring or edema. Mild cholelithiasis is noted. Bilateral renal atrophy with cortical scarring. Probable nonobstructive left renal calculus. No hydronephrosis or renal obstruction is noted. Large amount of stool is noted in the rectum concerning for impaction. Electronically Signed By: Hardy Terrell Jr, M.D. On: 07/19/2016 15:46
[2016-07-27 13:35] VITALS: BP 134/74; TEMP 97.7
[2016-07-27 14:22] VITALS: PULSE 118
== END 2016-07-27 16:20 | DRG 377 ==
LOC: ED 13:48 → MPS3 16:54
PROVIDERS: ADMIT Hospitalist; ATTEND Internal Medicine
PROC: 039B3ZZ Drainage of Right Radial Artery, Percutaneous Approach (ICD-10-PCS; principal; 2016-07-19)
DX: K62.5 Hemorrhage of anus and rectum (principal); J18.0 Bronchopneumonia, unspecified organism; N17.9 Acute kidney failure, unspecified; G20 Parkinson's disease; G30.1 Alzheimer's disease with late onset; R13.12 Dysphagia, oropharyngeal phase; J44.0 Chronic obstructive pulmonary disease with (acute) lower respiratory infection; N30.00 Acute cystitis without hematuria; I48.91 Unspecified atrial fibrillation; F02.80 Dementia in other diseases classified elsewhere, unspecified severity, without behavioral disturbance, psychotic disturbance, mood disturbance, and anxiety; E87.6 Hypokalemia; I10 Essential (primary) hypertension; K21.9 Gastro-esophageal reflux disease without esophagitis; M19.90 Unspecified osteoarthritis, unspecified site; Z88.5 Allergy status to narcotic agent; Z88.2 Allergy status to sulfonamides; Z79.899 Other long term (current) drug therapy; K59.00 Constipation, unspecified; R74.8 Abnormal levels of other serum enzymes
CPT/HCPCS: 36415; 36600; 71010; 74176; 80048; 80053; 81001; 82550; 82803; 82962; 83605; 83690; 84484; 85014; 85018; 85025; 85027; 85610; 85730; 87040; 87086; 93005; 94640; 96361; 96365; 99285; G0237; J0456; J0696; J2920; J3490; J7040; J7060; J7070; J7620

== ENCOUNTER 2016-07-30 21:40 | Inpatient (IN) | payer MEDICARE, MEDICAID ==
[2016-07-30 21:59] LABS: ABG Draw Site Right Radial; ALLEN'S TEST PASS; BEb 2.8 (+/- 2); TCO2 27.2 MMOL/L (23-27)
[2016-07-30] MEDS ORDERED: Pharmacy Order Set Alert SCH (22:00)
[2016-07-30] MEDS ORDERED: NS 1,000 ML IV ONE (22:08)
--- NOTE | 2016-07-30 22:08 | EDPRACDOC ---
- General Information Chief Complaint: Dyspnea/Resp distress Stated Complaint: RESP Time Seen by Provider: 07/30/16 22:03 Information Source: Correction, Threader Mode Of Arrival: Ambulance Home Medications: Home Medications Acetaminophen [Tylenol] 650 mg PO Q6H PRN 07/19/16 Allopurinol [Zyloprim] 300 mg PO DAILY 07/19/16 Apixaban [Eliquis] 2.5 mg PO BID 07/19/16 Ascorbic Acid [Vitamin C] 500 mg PO BID 07/19/16 Baclofen 5 mg PO TID 07/19/16 Calcium Carbonate 500 mg PO BID 07/19/16 Carbidopa/Levodopa [Sinemet 10-100 mg Tablet] 1 tab PO TID 07/19/16 Guaifenesin [Humabid, Mucinex] 600 mg PO Q12H 07/19/16 Guaifenesin [Robitussin] 10 ml PO Q6H 07/19/16 Lmfol Ca/Acetyl/Mb12/Algal Oil [Cerefolin Nac Caplet] 1 tab PO DAILY 07/19/16 Med Pass 60 ml PO TID 07/19/16 Metoprolol Tartrate 50 mg PO BID 07/19/16 Multivitamin [One Daily] 1 tab PO DAILY 07/19/16 Nystatin 5 ml PO QID 07/19/16 Omeprazole 20 mg PO DAILY 07/19/16 Perphenazine 2 mg PO TID 07/19/16 Sodium Bicarbonate 650 mg PO TID 07/19/16 Zinc Sulfate 220 mg PO DAILY 07/19/16 Albuterol/Ipratropium Neb [Duoneb] 3 ml NEB Q6H PRN #1 box 07/27/16 Amoxicillin/Potassium Clav [Augmentin Es-600 Suspension] 600 mg PO TIDAC #10 susp.recon 07/27/16 Mirtazapine 30 mg PO HS #90 tab 07/27/16 PEG-Electrolytes (Miralax) [Miralax] 17 gm PO DAILY #1 each 07/27/16 Prednisone 10 mg PO DAILY #30 tab.ds.pk 07/27/16 Senna Concentrate [Senokot] 1 tab PO HS #120 tab 07/27/16 Allergies/Adverse Reactions: Allergies Allergy/AdvReac Type Severity Reaction Status Date / Time hydrocodone Allergy Unknown Verified 07/19/16 13:57 shrimp Allergy Unknown Verified 07/19/16 13:57 Sulfa (Sulfonamide Allergy Unknown Verified 07/19/16 13:57 Antibiotics) - History of Present Illness Shortness of Breath: Moderate Cough: Reports: Non-productive Associated Signs and symptoms: Reports: Cough Other History: retirement Pt, does not provide any sig history. Per EMS per staff, SOB today recent PNA requiring hospitalization. Initial RA sats 86%, placed on NRM. h/o Afib arrives to ED with HR 120s and pulse ox 90s on O2. no reported fever, emesis or complaints otherwise. ED Past Medical History - History Reviewed Yes Nurses notes reviewed and agree except as marked - Patient Medical History Neurological History: Reports: Dementia, Parkinson's Cardiac History: Reports: Atrial Fibrillation, Hypertension, Heart Attack Respiratory History: Reports: COPD GI/ History: Reports: Renal Disease (Chronic), Gastroesophageal Reflux Musculoskeletal History: Reports: Arthritis Psychological History: Denies: Depression - Social Medical History Smoking Status: Never smoker EDM Review of Systems - Review of Systems ROS Unobtainable: Yes Review of systems cannot be obtained due to the patient's medical condition - Physical Exam Constitutional: Alert (Awake), Other (tachypneic, mild resp distress, non-verbal ) Last recorded Vital Signs: Oxygen Pulse Oxygen Saturation O2 Device Oxygen Flow Rate Fraction of Inspired Oxygen ( FIO2) - HEENT Head: Normal ( normocephalic) Eye Exam: Normal (PERRL, EOMI, Sclera white) Oropharynx: Membranes Dry Nose: negative: Discharge Neck: Normal (FROM, trachea at midline) - Respiratory/Cardiovascular Respiratory: Other (course bilateral breath sounds, tachypnea) Cardiovascular: Tachycardia - GI Auscultation: Normal (NABS) Palpation: Normal (Soft,No rebound or guarding, non distended) Tenderness: Non tender - Musculoskeletal Back: Normal (Non-Tender). negative: Ecchymosis Extremities: negative: Calf Tenderness - Integumentary Skin: Normal, Warm, Dry Lymphatics: Normal (no adenopathy) - Neurologic Memory Impaired: Unable to Test Motor Function: Normal (Normal tone, Pulses 2+ No cyanosis or edema, FROM) ED SOB MDM - Results Result Diagrams: 07/30/16 22:10 07/30/16 22:10 Results: Puncture Site Right radial 07/30/16 21:55 pH 7.480 pH UNITS (7.35-7.45) H 07/30/16 21:55 pCO2 35.0 mmHg (35-45) 07/30/16 21:55 pO2 98.0 mmHg (80-100) 07/30/16 21:55 HCO3 26.1 MMOL/L (22-26) H 07/30/16 21:55 Total CO2 27.2 MMOL/L (23-27) H 07/30/16 21:55 Base Excess 2.8 (+/- 2) H 07/30/16 21:55 FiO2 % 100 nrb 07/30/16 21:55 Specimen Drawn By Hiren 07/30/16 21:55 Lab Results 07/30/16 21:55 Puncture Site Right radial pH 7.480 H pCO2 35.0 pO2 98.0 HCO3 26.1 H Total CO2 27.2 H Base Excess 2.8 H FiO2 % 100 nrb Specimen Drawn By Hiren - EKG EKG #1 EKG Time: 21:46 -: Yes EKG interpreted by me Rate: bpm: 121 [place]: Normal Rhythm: Afib Hypertrophy: None ST: Nonsp Comments: T wave flattening with lateral inversions - Diagnostic Imaging Chest Diagnostic Imaging Comments: Exam(s): [id number] RAD/DG CHEST PORTABLE CLINICAL DATA: Severe sepsis. EXAM: PORTABLE CHEST 1 VIEW COMPARISON: July 21, 2016. FINDINGS: Stable cardiomegaly. No pneumothorax or pleural effusion is noted. Sternotomy wires are noted. Mild bibasilar opacities are noted most consistent with subsegmental atelectasis. Bony thorax is unremarkable. IMPRESSION: Mild bibasilar opacities are noted most consistent with subsegmental atelectasis. Electronically Signed By: Hardy Terrell Jr, M.D. On: 07/30/2016 22:35 Electronically Signed By: Hardy Terrell MD Electronically Signed Date/Time: 238 Dictate Date/Time: 07/30/16 2233 Abdomen Image interpreted by: Radiologist Diagnostic Imaging Comments: EXAM: CT ABDOMEN AND PELVIS WITHOUT CONTRAST TECHNIQUE: Multidetector CT imaging of the abdomen and pelvis was performed following the standard protocol without IV contrast. COMPARISON: Chest radiograph earlier this day. CT abdomen/pelvis 2 weeks prior 07/19/2016 FINDINGS: Lower chest: Progressive pleural effusions from prior exam, now moderate in degree. There is adjacent compressive atelectasis in both lower lobes. Coronary artery calcifications are seen. Heart is prominent in size. Liver: Arms down positioning limits evaluation, no evidence of focal lesion. Hepatobiliary: Arms down positioning limits evaluation, probable depending cholelithiasis, partially obscured. No pericholecystic inflammation. Pancreas: Arms down positioning limits assessment. No ductal dilatation or inflammation. Spleen: Normal in size. Adrenal glands: No nodule. Kidneys: Atrophic kidneys with lobular contours. No hydronephrosis. Probable nonobstructing calculus in the upper left kidney. Arms down positioning limits assessment. Stomach/Bowel: Stomach is decompressed. There are no dilated or thickened small bowel loops. High-density material and small volume of stool throughout the colon without colonic wall thickening. Diverticulosis in the sigmoid colon without diverticulitis. Prominent stool distends the rectum. The appendix is not confidently identified. Vascular/Lymphatic: No retroperitoneal adenopathy. Abdominal aorta is normal in caliber. Mild atherosclerosis without aneurysm Reproductive: Prostate gland normal in size. Bladder: Physiologically distended, no wall thickening. Other: No free air, free fluid, or intra-abdominal fluid collection. Fat within the left inguinal canal. Musculoskeletal: There are no acute or suspicious osseous abnormalities. Degenerative change throughout the spine. Probable hemangioma within L4 vertebral body. IMPRESSION: 1. Findings suspicious for fecal impaction. No bowel obstruction. Colonic diverticulosis without diverticulitis. 2. Increased size of bilateral pleural effusions, now moderate in degree. Associated compressive atelectasis in the lower lobes. 3. Probable nonobstructing left nephrolithiasis. Probable cholelithiasis, obscured by arms down positioning and streak artifact. No pericholecystic inflammatory change. - Departure Final Diagnosis: Acute encephalopathy, Pneumonia Decision to Admit Time: 00:10 Decision to admit date: 07/31/16 Decision to admit: from ED - Physician Consulted Hospitalist Time Called: 00:10 (DR Conrad to admit)
[2016-07-30] MEDS ORDERED: PIPERACILLIN AND TAZOBACTAM 4.5 GM in D5W 100 ML IV ONE (22:10)
[2016-07-30] MEDS ORDERED: Levofloxacin 500 mg/100 ml D5W 500 MG/100 ML RTU IV ONE (22:10)
--- NOTE | 2016-07-30 22:38 | DIRPT ---
CLINICAL DATA: Severe sepsis. EXAM: PORTABLE CHEST 1 VIEW COMPARISON: July 21, 2016. FINDINGS: Stable cardiomegaly. No pneumothorax or pleural effusion is noted. Sternotomy wires are noted. Mild bibasilar opacities are noted most consistent with subsegmental atelectasis. Bony thorax is unremarkable. IMPRESSION: Mild bibasilar opacities are noted most consistent with subsegmental atelectasis. Electronically Signed By: Hardy Terrell Jr, M.D. On: 07/30/2016 22:35
[2016-07-30 22:42] LABS: AUTOMATED BASOPHIL 0.6 % (0-2); AUTOMATED EOSINOPHIL 0.3 % (0-5); AUTOMATED LYMPH 5.5 % (17-44); AUTOMATED MONOCYTE 4.7 % (3-10); AUTOMATED NEUTROPHIL 88.9 % (45-76); BLOOD UREA NITROGEN 47 MG/DL (9-20); CALC CORRECTED 9.8 MG/DL (8.4-10.2); CALCIUM 8.5 MG/DL (8.4-10.2); CALCULATED OSMOLALITY 299 MOs/Kg (270-290); CHLORIDE 111 mEq/L (98-107); GLUCOSE 88 MG/DL (70-99); MPV 8.9 fL (7.4-10.4); SODIUM LEVEL 150 mEq/L (137-146); TOTAL PROTEIN 6.3 G/DL (6.3-8.2)
[2016-07-30 22:45] LABS: PARTIAL THROMB. TIME 29.1 SEC (22-35); PT-INR 1.4
[2016-07-30 22:47] LABS: CPK TOTAL WITH POSSIBLE MB < 20 IU/L (55-170)
--- NOTE | 2016-07-31 00:04 | DIRPT ---
CLINICAL DATA: Mid abdominal pain. Respiratory distress for 3 hours. Elevated white blood cell count. EXAM: CT ABDOMEN AND PELVIS WITHOUT CONTRAST TECHNIQUE: Multidetector CT imaging of the abdomen and pelvis was performed following the standard protocol without IV contrast. COMPARISON: Chest radiograph earlier this day. CT abdomen/pelvis 2 weeks prior 07/19/2016 FINDINGS: Lower chest: Progressive pleural effusions from prior exam, now moderate in degree. There is adjacent compressive atelectasis in both lower lobes. Coronary artery calcifications are seen. Heart is prominent in size. Liver: Arms down positioning limits evaluation, no evidence of focal lesion. Hepatobiliary: Arms down positioning limits evaluation, probable depending cholelithiasis, partially obscured. No pericholecystic inflammation. Pancreas: Arms down positioning limits assessment. No ductal dilatation or inflammation. Spleen: Normal in size. Adrenal glands: No nodule. Kidneys: Atrophic kidneys with lobular contours. No hydronephrosis. Probable nonobstructing calculus in the upper left kidney. Arms down positioning limits assessment. Stomach/Bowel: Stomach is decompressed. There are no dilated or thickened small bowel loops. High-density material and small volume of stool throughout the colon without colonic wall thickening. Diverticulosis in the sigmoid colon without diverticulitis. Prominent stool distends the rectum. The appendix is not confidently identified. Vascular/Lymphatic: No retroperitoneal adenopathy. Abdominal aorta is normal in caliber. Mild atherosclerosis without aneurysm Reproductive: Prostate gland normal in size. Bladder: Physiologically distended, no wall thickening. Other: No free air, free fluid, or intra-abdominal fluid collection. Fat within the left inguinal canal. Musculoskeletal: There are no acute or suspicious osseous abnormalities. Degenerative change throughout the spine. Probable hemangioma within L4 vertebral body. IMPRESSION: 1. Findings suspicious for fecal impaction. No bowel obstruction. Colonic diverticulosis without diverticulitis. 2. Increased size of bilateral pleural effusions, now moderate in degree. Associated compressive atelectasis in the lower lobes. 3. Probable nonobstructing left nephrolithiasis. Probable cholelithiasis, obscured by arms down positioning and streak artifact. No pericholecystic inflammatory change. Electronically Signed By: Siena López M.D. On: 07/31/2016 00:02
[2016-07-31] MEDS ORDERED: Albuterol/Ipratropium Neb 3 ML NEB NEB PRN (00:32)
[2016-07-31 00:39] LABS: LEUKOCYTES/URINE NEG (NEGATIVE); NITRITE/URINE NEG (NEGATIVE); URINE OCCULT BLOOD NEG (NEG/TRACE); WBC/URINE 0-2 (0-2)
--- NOTE | 2016-07-31 00:44 | HISTPHYS ---
- Chief Complaint Shortness of breath ,fevers ,hypoxia, diminished level of responsiveness - History of Present Illness 76 yowm recently hospitalized formerly [facility] for bronchopneumonia fecal impaction and GI bleed , full-time resident of longterm facility, brought to emergency room early on today for evaluation of worsening confusion, diminished level responsiveness cough shortness breath and hypoxia with pulse ox being in 80s. Due to underlying dementia and acute illness patient himself unable to provide any specific details. Upon arrival in ED patient was found to be in moderate respiratory distress hypoxic and tachypneic and required high- flow supplemental O2. Chest x-ray jacinta suspicion for bilateral bibasilar infiltrates. CT abdomen and pelvis showed findings suspicious for fecal impaction and increased size of bilateral pleural effusions. Medical consultation was phoned in for inpatient treatment. - Medical History Cardiac History: Reports: Atrial Fibrillation, Hypertension, Heart Attack, Valvular Heart Disease Respiratory History: Reports: COPD, Aspiration Pneumonia, Pneumonia GI/ History: Reports: Renal Disease (Chronic), Gastroesophageal Reflux, BPH Musculoskeletal History: Reports: Arthritis Neurological History: Reports: Dementia, Parkinson's Psychological History: Reports: Anxiety. Denies: Depression - Surgical History Reports: No Significant History - Medictions/Allergies Allergies hydrocodone Allergy (Verified 07/19/16 13:57) Unknown shrimp Allergy (Verified 07/19/16 13:57) Unknown Sulfa (Sulfonamide Antibiotics) Allergy (Verified 07/19/16 13:57) Unknown Current Medication List: Reviewed Home Medications Acetaminophen [Tylenol] 650 mg PO Q6H PRN 07/19/16 Allopurinol [Zyloprim] 300 mg PO DAILY 07/19/16 Apixaban [Eliquis] 2.5 mg PO BID 07/19/16 Ascorbic Acid [Vitamin C] 500 mg PO BID 07/19/16 Baclofen 5 mg PO TID 07/19/16 Calcium Carbonate 500 mg PO BID 07/19/16 Carbidopa/Levodopa [Sinemet 10-100 mg Tablet] 1 tab PO TID 07/19/16 Guaifenesin [Humabid, Mucinex] 600 mg PO Q12H 07/19/16 Guaifenesin [Robitussin] 10 ml PO Q6H 07/19/16 Lmfol Ca/Acetyl/Mb12/Algal Oil [Cerefolin Nac Caplet] 1 tab PO DAILY 07/19/16 Med Pass 60 ml PO TID 07/19/16 Metoprolol Tartrate 50 mg PO BID 07/19/16 Multivitamin [One Daily] 1 tab PO DAILY 07/19/16 Nystatin 5 ml PO QID 07/19/16 Omeprazole 20 mg PO DAILY 07/19/16 Perphenazine 2 mg PO TID 07/19/16 Sodium Bicarbonate 650 mg PO TID 07/19/16 Zinc Sulfate 220 mg PO DAILY 07/19/16 Albuterol/Ipratropium Neb [Duoneb] 3 ml NEB Q6H PRN #1 box 07/27/16 Amoxicillin/Potassium Clav [Augmentin Es-600 Suspension] 600 mg PO TIDAC #10 susp.recon 07/27/16 Mirtazapine 30 mg PO HS #90 tab 07/27/16 PEG-Electrolytes (Miralax) [Miralax] 17 gm PO DAILY #1 each 07/27/16 Prednisone 10 mg PO DAILY #30 tab.ds.pk 07/27/16 Senna Concentrate [Senokot] 1 tab PO HS #120 tab 07/27/16 - Family History Reports: Cardiac Disorders, Respiratory Disorders - Social History Travel Outside of [place] in the Last 3 Months?: No Lives: in [facility] Smoking Status: Never smoker - Review of Systems Yes Review of systems cannot be obtained due to the patient's medical condition (confusion) - Physical Exam Vital Signs: Initial Vitals Temperature 99.1 F 07/30/16 21:40 Pulse Rate 119 07/30/16 21:40 Respiratory Rate 30 H 07/30/16 21:40 Blood Pressure 191/101 H 07/30/16 21:40 Pulse Oxygen Saturation 98 07/30/16 21:40 Constitutional: Confused, Distress, Decreased Consciousness Oriented to: Person, Not Oriented - HEENT Head: Normal Eye: Normal Oropharynx: Membranes Dry ENT EAC: Normal TMJ: Normal Nose: No Symptoms Reported Respiratory: Accessory Muscle Use, Diminished, Rhonchi, Wheezes Cardiovascular: Normal, Systolic murmur - GI Auscultation: Normal Palpation: Normal Tenderness: Non tender Rectal Exam: Deferred - Exam Deferred: Yes - Musculoskeletal Back: Normal Extremities: Cyanosis, Edema Spine: limited range of motion - Integumentary Skin: Normal, Warm, Dry Lymphatics: Normal - Neurologic Memory Impaired: Short-term Motor Function: Abnormal Cranial Nerve: Normal Cerebellar: Ataxia Mood Description: Normal, Anxious Thought: Delusions Perception: Normal - Focused CV Perfusion Exam Vital Signs: Last Vital Signs Temp 99.1 F 07/30/16 21:40 Pulse 118 07/30/16 23:15 Resp 26 H 07/30/16 23:15 BP 109/71 07/30/16 23:15 Pulse Ox 96 07/30/16 23:15 - Diagnostic Findings Allergies hydrocodone Allergy (Verified 07/19/16 13:57) Unknown shrimp Allergy (Verified 07/19/16 13:57) Unknown Sulfa (Sulfonamide Antibiotics) Allergy (Verified 07/19/16 13:57) Unknown 07/30/16 22:10 07/30/16 22:10 Last Vital Signs Temp 99.1 F 07/30/16 21:40 Pulse 118 07/30/16 23:15 Resp 26 H 07/30/16 23:15 BP 109/71 07/30/16 23:15 Pulse Ox 96 07/30/16 23:15 Abnormal Lab Results 07/30/16 07/30/16 07/30/16 21:55 22:10 22:10 WBC 17.1 H RBC 3.94 L Hgb 11.5 L D Hct 36.2 L MCHC 31.8 L RDW 19.7 H Neut % (Auto) 88.9 H Lymph % (Auto) 5.5 L Absolute Neuts (auto) 15.05 H PT pH 7.480 H HCO3 26.1 H Total CO2 27.2 H Base Excess 2.8 H Sodium 150 H Chloride 111 H Anion Gap 17 H BUN 47 H Creatinine 1.60 H Estimated GFR (MDRD) 42 L Calculated Osmolality 299 H Total Bilirubin 1.4 H Creatine Kinase < 20 L Albumin 2.7 L Lipase 980 H 07/30/16 22:10 WBC RBC Hgb Hct MCHC RDW Neut % (Auto) Lymph % (Auto) Absolute Neuts (auto) PT 13.9 H pH HCO3 Total CO2 Base Excess Sodium Chloride Anion Gap BUN Creatinine Estimated GFR (MDRD) Calculated Osmolality Total Bilirubin Creatine Kinase Albumin Lipase Patient Name: ADY KAUFFMAN LOC: ED : 1940 AGE: 76 Order Date:07/30/16 Date of Service:04/07 Report # [id number] Ord Physician: Bennie Ramos MD Exam # [id number] Emergency Physician: Bennie Ramos MD Exam(s): [id number] CT/CT ABD-PELV W/O IV CM CLINICAL DATA: Mid abdominal pain. Respiratory distress for 3 hours. Elevated white blood cell count. EXAM: CT ABDOMEN AND PELVIS WITHOUT CONTRAST TECHNIQUE: Multidetector CT imaging of the abdomen and pelvis was performed following the standard protocol without IV contrast. COMPARISON: Chest radiograph earlier this day. CT abdomen/pelvis 2 weeks prior 07/19/2016 FINDINGS: Lower chest: Progressive pleural effusions from prior exam, now moderate in degree. There is adjacent compressive atelectasis in both lower lobes. Coronary artery calcifications are seen. Heart is prominent in size. Liver: Arms down positioning limits evaluation, no evidence of focal lesion. Hepatobiliary: Arms down positioning limits evaluation, probable depending cholelithiasis, partially obscured. No pericholecystic inflammation. Pancreas: Arms down positioning limits assessment. No ductal dilatation or inflammation. Spleen: Normal in size. Adrenal glands: No nodule. Kidneys: Atrophic kidneys with lobular contours. No hydronephrosis. Probable nonobstructing calculus in the upper left kidney. Arms down positioning limits assessment. Stomach/Bowel: Stomach is decompressed. There are no dilated or thickened small bowel loops. High-density material and small volume of stool throughout the colon without colonic wall thickening. Diverticulosis in the sigmoid colon without diverticulitis. Prominent stool distends the rectum. The appendix is not confidently identified. Vascular/Lymphatic: No retroperitoneal adenopathy. Abdominal aorta is normal in caliber. Mild atherosclerosis without aneurysm Reproductive: Prostate gland normal in size. Bladder: Physiologically distended, no wall thickening. Other: No free air, free fluid, or intra-abdominal fluid collection. Fat within the left inguinal canal. Musculoskeletal: There are no acute or suspicious osseous abnormalities. Degenerative change throughout the spine. Probable hemangioma within L4 vertebral body. IMPRESSION: 1. Findings suspicious for fecal impaction. No bowel obstruction. Colonic diverticulosis without diverticulitis. 2. Increased size of bilateral pleural effusions, now moderate in degree. Associated compressive atelectasis in the lower lobes. 3. Probable nonobstructing left nephrolithiasis. Probable cholelithiasis, obscured by arms down positioning and streak artifact. No pericholecystic inflammatory change. Electronically Signed By: Siena López M.D. On: 07/31/2016 00:02 - Assessment (1) Hospital-acquired pneumonia J18.9 - PNEUMONIA, UNSPECIFIED ORGANISM Acute Present on Admission: Yes Patient will receive broad-spectrum antibiotics in the form of Levaquin and imipenem. Will adjust antibiotics based on culture results. (2) Toxic metabolic encephalopathy G92 - TOXIC ENCEPHALOPATHY Acute Present on Admission: Yes Patient be admitted to monitored medical bed. Maximal supportive care will be provided. Will avoid excessive sedation and anticholinergics. (3) Atrial fibrillation I48.91 - UNSPECIFIED ATRIAL FIBRILLATION Chronic Present on Admission: Yes Qualifiers: Atrial fibrillation type: chronic Qualified Code(s): I48.2 - Chronic atrial fibrillation Continue home meds. Rate controlled. Monitor on telemetry. Keep K more than 4 magnesium more than 2 (4) Dementia F03.90 - UNSPECIFIED DEMENTIA WITHOUT BEHAVIORAL DISTURBANCE Chronic Present on Admission: Yes Qualifiers: Dementia type: Alzheimer's disease Alzheimer's disease onset: late-onset Dementia behavioral disturbance: without behavioral disturbance Qualified Code (s): G30.1 - Alzheimer's disease with late onset; F02.80 - Dementia in other diseases classified elsewhere without behavioral disturbance Continue supportive care (5) Dysphagia R13.10 - DYSPHAGIA, UNSPECIFIED Chronic Present on Admission: Yes Qualifiers: Dysphagia type: oropharyngeal phase Qualified Code(s): R13.12 - Dysphagia, oropharyngeal phase Continue aspiration precautions and special diet (6) Parkinsons disease G20 - PARKINSON'S DISEASE Chronic Present on Admission: Yes Continue Sinemet and monitor. (7) Hypernatremia E87.0 - HYPEROSMOLALITY AND HYPERNATREMIA Acute Present on Admission: Yes Patient will receive IV fluids in the form of D5 half-normal saline.monotor bmp (8) Impacted stool in intestine K56.41 - FECAL IMPACTION Acute Present on Admission: Yes continue bowel regimen Case Care Discussed with: Patient, Nursing Staff, Respiratory Therapy Total Time: 60 min . Critical Care: No Code: 30498
[2016-07-31] MEDS ORDERED: GUAIFENESIN 200 MG/10 ML UDC PO SCH (01:00)
[2016-07-31] MEDS ORDERED: LACTULOSE 20 GM/30 ML ORAL SOLN PO ONE (01:00)
[2016-07-31] MEDS: D5-1/2NS/KCL 20 mEq 1,000 ML IV SCH ×3 (01:42→16:38)
[2016-07-31] MEDS: BACLOFEN 10 MG TAB PO SCH ×3 (01:49→21:17)
[2016-07-31] MEDS: CARBIDOPA LEVODOPA PO SCH ×3 (01:52→21:18)
[2016-07-31] MEDS: GUAIFENESIN 600 MG LA TAB PO SCH ×2 (01:52→12:33)
[2016-07-31] MEDS: SODIUM BICARBONATE 650 MG (10 GR) TAB PO SCH ×3 (01:53→21:18)
[2016-07-31] MEDS: PERPHENAZINE 2 MG TAB PO SCH ×3 (01:53→21:18)
[2016-07-31] MEDS ORDERED: Levofloxacin 750 mg/150 ml D5W 750 MG/150 ML RTU IV SCH (02:00)
[2016-07-31] MEDS: Albuterol/Ipratropium Neb 3 ML NEB NEB SCH ×4 (03:16→20:42)
[2016-07-31] MEDS: IMIPENEM CILASTATIN 500 MG in D5W 100 ML IV SCH ×3 (05:41→21:16)
[2016-07-31] MEDS ORDERED: SODIUM BICARBONATE 650 MG PO SCH (06:00)
[2016-07-31] MEDS ORDERED: MED PASS PO SCH (06:00)
[2016-07-31 08:28] LABS: ABG Draw Site Right Radial; ALLEN'S TEST PASS; TCO2 26.7 MMOL/L (23-27)
[2016-07-31] MEDS ORDERED: [UNRECOGNIZED DRUG - MIXTURE] PO SCH (09:00)
[2016-07-31] MEDS ORDERED: APIXABAN 5 MG TABLET PO SCH (09:00)
[2016-07-31] MEDS ORDERED: APIXABAN 2.5 MG PO SCH (09:00)
[2016-07-31] MEDS ORDERED: Non-Formulary Medication ITEM (Multivitamin [One Daily] 1 TAB) PO SCH (09:00)
[2016-07-31] MEDS: NYSTATIN ORAL SUSP 5 ML PO SCH ×4 (09:12→21:17)
[2016-07-31] MEDS: METOPROLOL TARTRATE 50 MG TAB PO SCH ×2 (09:13→21:17)
[2016-07-31] MEDS: PEG-ELECTROLYTE 17 GM PACK PO SCH (09:13)
[2016-07-31] MEDS: ALLOPURINOL 300 MG TAB PO SCH (09:13)
--- NOTE | 2016-07-31 11:28 | GENMEDPROG ---
Chief Complaint: Respiratory failure Subjective Note: Admitted overnight for his respiratory failure, transferred ICU this morning due to decreased responsiveness. He is more awake and alert this morning. Has dementia. Notes Reviewed: Yes Events from last night noted and discussed with Clinical Staff Current Medication List: Reviewed Currently: Reports: Cough, Wheezing, SOB DVT Prophylaxis: Yes - Physical Examination Vital Signs and I&O: Last Vital Signs Temp 97.6 F 07/31/16 09:30 Pulse 106 07/31/16 10:04 Resp 18 07/31/16 09:30 BP 96/61 L 07/31/16 10:04 Pulse Ox 97 07/31/16 10:04 Oxygen Pulse Oxygen Saturation 97 O2 Device Venturi Mask Oxygen Flow Rate 10 Fraction of Inspired Oxygen ( 55 FIO2) Intake & Output 07/29/16 07/30/16 07/31/16 08/01/16 06:59 06:59 06:59 06:59 Intake Total 2322 Output Total 550 Balance 2322 -550 Patient's weight 99.11 kg 100.811 kg General: Alert, Mild distress. negative: Oriented x3 Neck: Normal Trachea alignment, Normal inspection Lymphatics: Normal Respiratory: Accessory Muscle Use, Diminished, Rhonchi, Wheezes Cardiovascular: Regular rate, No Gallops,Rubs/Murmurs GI: Normal bowel sounds, Soft, Non tender (non distended) Extremities/Musculoskeletal: Other (Normal Tone). negative: Edema, Cyanosis Lab/DI/Studies Reviewed: Laboratory Tests 07/30/16 07/30/16 07/31/16 21:55 22:10 08:22 WBC 17.1 H Hgb 11.5 L D pH 7.480 H 7.460 H pCO2 35.0 36.0 pO2 98.0 95.0 - Assessment (1) Acute encephalopathy Acute G93.40 - ENCEPHALOPATHY, UNSPECIFIED Comment/Plan: Likely due to his infection, and underlying dementia. Also hospital-acquired delirium. Treat as below. (2) Hospital-acquired pneumonia Acute J18.9 - PNEUMONIA, UNSPECIFIED ORGANISM Comment/Plan: Patient will receive broad-spectrum antibiotics in the form of Levaquin and imipenem. Will adjust antibiotics based on culture results. (3) Hypernatremia Acute E87.0 - HYPEROSMOLALITY AND HYPERNATREMIA Comment/Plan: Patient will receive IV fluids in the form of D5 half-normal saline.monotor bmp (4) Impacted stool in intestine Acute K56.41 - FECAL IMPACTION Comment/Plan: continue bowel regimen (5) Toxic metabolic encephalopathy Acute G92 - TOXIC ENCEPHALOPATHY Comment/Plan: Patient be admitted to monitored medical bed. Maximal supportive care will be provided. Will avoid excessive sedation and anticholinergics. (6) Chronic renal disease Acute N18.9 - CHRONIC KIDNEY DISEASE, UNSPECIFIED Comment/Plan: Monitor renal function daily, but nephro toxic agents.
[2016-07-31] MEDS ORDERED: GUAIFENESIN 200 MG/10 ML UDC PO PRN (11:41)
[2016-07-31] MEDS ORDERED: Vaccine Screening Complete SCH (12:00)
[2016-07-31] MEDS: VITAMINS, MULTIPLE CAP PO SCH (12:27)
[2016-07-31] MEDS: ASCORBIC ACID 500 MG TAB PO SCH ×2 (12:27→15:27)
[2016-07-31] MEDS: CALCIUM CARBONATE 500 MG TAB PO SCH ×2 (12:27→15:27)
[2016-07-31] MEDS: ZINC SULFATE 220 MG CAP PO SCH (12:33)
[2016-07-31] MEDS ORDERED: MIRTAZAPINE 30 MG PO SCH (21:00)
[2016-07-31] MEDS: APIXABAN 5 MG TABLET PO SCH (21:17)
[2016-07-31] MEDS: SENNA CONCENTRATE TAB PO SCH (21:18)
[2016-07-31] MEDS: MIRTAZAPINE 15 MG TAB PO SCH (21:18)
[2016-07-31] MEDS ORDERED: ENOXAPARIN 40 MG/0.4 ML PFS SQ SCH (23:00)
[2016-08-01] MEDS: GUAIFENESIN 600 MG LA TAB PO SCH ×2 (00:20→12:21)
[2016-08-01] MEDS: Albuterol/Ipratropium Neb 3 ML NEB NEB SCH ×4 (03:14→20:23)
[2016-08-01] MEDS: D5-1/2NS/KCL 20 mEq 1,000 ML IV SCH ×3 (05:23→21:13)
[2016-08-01] MEDS: CARBIDOPA LEVODOPA PO SCH ×3 (05:24→21:18)
[2016-08-01] MEDS: IMIPENEM CILASTATIN 500 MG in D5W 100 ML IV SCH ×3 (05:24→21:13)
[2016-08-01] MEDS: PERPHENAZINE 2 MG TAB PO SCH ×3 (05:24→21:18)
[2016-08-01] MEDS: SODIUM BICARBONATE 650 MG (10 GR) TAB PO SCH ×3 (05:24→21:19)
[2016-08-01] MEDS: BACLOFEN 10 MG TAB PO SCH ×3 (05:24→21:17)
[2016-08-01 06:43] LABS: BLOOD UREA NITROGEN 33 MG/DL (9-20); CALCIUM 7.8 MG/DL (8.4-10.2); CALCULATED OSMOLALITY 284 MOs/Kg (270-290); CHLORIDE 111 mEq/L (98-107); GLUCOSE 95 MG/DL (70-99); SODIUM LEVEL 144 mEq/L (137-146)
--- NOTE | 2016-08-01 07:54 | DIRPT ---
CLINICAL DATA: Impaction. EXAM: DG ABDOMEN ACUTE W/ 1V CHEST COMPARISON: 07/30/2016. FINDINGS: Prior CABG. Cardiomegaly with pulmonary venous congestion. Bilateral pulmonary interstitial prominence noted. mild congestive heart failure cannot be excluded. Small bilateral pleural effusions. No pneumothorax. Oral contrast noted throughout the colon. No bowel distention. No large stool burden. No free air. Degenerative changes lumbar spine and both hips. IMPRESSION: 1. Prior median sternotomy. Cardiomegaly with mild pulmonary vascular congestion, mild interstitial prominence, and small pleural effusions. Mild congestive heart failure cannot be excluded . 2. Oral contrast noted throughout the colon. No bowel distention. No large stool burden. Electronically Signed By: Michael Kruger On: 08/01/2016 07:51
--- NOTE | 2016-08-01 08:11 | GENMEDPROG ---
Chief Complaint: Pneumonia, fecal impaction Subjective Note: Doing well this morning, more awake and alert and interactive. Denies any chest pain, says he has some mild shortness of breath but feels like he is getting better. Notes Reviewed: Yes Events from last night noted and discussed with Clinical Staff Current Medication List: Reviewed Currently: Reports: Cough, Wheezing, SOB DVT Prophylaxis: Yes - Physical Examination Vital Signs and I&O: Last Vital Signs Temp 98.0 F 08/01/16 03:00 Pulse 142 H 08/01/16 06:00 Resp 22 07/31/16 22:00 BP 104/71 08/01/16 06:00 Pulse Ox 94 08/01/16 06:00 Oxygen Pulse Oxygen Saturation 94 O2 Device Nasal Cannula Oxygen Flow Rate 3 Fraction of Inspired Oxygen ( 55 FIO2) Intake & Output 07/30/16 07/31/16 08/01/16 08/02/16 06:59 06:59 06:59 06:59 Intake Total 2322 1686 Output Total 1750 Balance 2322 -64 Patient's weight 99.11 kg 101.877 kg General: Alert, Mild distress. negative: Oriented x3 Neck: Normal Trachea alignment, Normal inspection Lymphatics: Normal Respiratory: Accessory Muscle Use, Diminished, Rhonchi, Wheezes Cardiovascular: Regular rate, No Gallops,Rubs/Murmurs GI: Normal bowel sounds, Soft, Non tender (non distended) Extremities/Musculoskeletal: Other (Normal Tone). negative: Edema, Cyanosis Lab/DI/Studies Reviewed: Laboratory Tests 07/30/16 07/30/16 07/31/16 22:10 22:10 08:22 WBC 17.1 H Hgb 11.5 L D Hct 36.2 L pH 7.460 H pCO2 36.0 pO2 95.0 Potassium BUN Creatinine 1.60 H 08/01/16 05:20 WBC Hgb Hct pH pCO2 pO2 Potassium 3.7 BUN 33 H Creatinine 1.40 H - Assessment (1) Acute encephalopathy Acute G93.40 - ENCEPHALOPATHY, UNSPECIFIED Comment/Plan: Likely due to his infection, and underlying dementia. Also hospital-acquired delirium. Improving as his fecal impaction has resolved, and his pneumonia is being treated. (2) Hospital-acquired pneumonia Acute J18.9 - PNEUMONIA, UNSPECIFIED ORGANISM Comment/Plan: Patient will receive broad-spectrum antibiotics in the form of Levaquin and imipenem. Will adjust antibiotics based on culture results. (3) Hypernatremia Acute E87.0 - HYPEROSMOLALITY AND HYPERNATREMIA Comment/Plan: Patient will receive IV fluids in the form of D5 half-normal saline.monotor bmp (4) Impacted stool in intestine Acute K56.41 - FECAL IMPACTION Comment/Plan: continue bowel regimen (5) Toxic metabolic encephalopathy Acute G92 - TOXIC ENCEPHALOPATHY Comment/Plan: Patient be admitted to monitored medical bed. Maximal supportive care will be provided. Will avoid excessive sedation and anticholinergics. (6) Chronic renal disease Acute N18.9 - CHRONIC KIDNEY DISEASE, UNSPECIFIED Comment/Plan: Monitor renal function daily, but nephro toxic agents. - Plan Patient is doing well, mental status is much improved vital signs are stable. Will place orders for transfer out of ICU when a bed is available today. Resume physical therapy and speech therapy orders. Discussed with nursing at the bedside this morning.
[2016-08-01] MEDS: PEG-ELECTROLYTE 17 GM PACK PO SCH (12:20)
[2016-08-01] MEDS: METOPROLOL TARTRATE 50 MG TAB PO SCH ×2 (12:20→21:35)
[2016-08-01] MEDS: NYSTATIN ORAL SUSP 5 ML PO SCH ×4 (12:20→21:35)
[2016-08-01] MEDS: ALLOPURINOL 300 MG TAB PO SCH (12:21)
[2016-08-01] MEDS: VITAMINS, MULTIPLE CAP PO SCH (12:21)
[2016-08-01] MEDS: ASCORBIC ACID 500 MG TAB PO SCH ×2 (12:21→15:53)
[2016-08-01] MEDS: CALCIUM CARBONATE 500 MG TAB PO SCH ×2 (12:21→15:53)
[2016-08-01] MEDS: ZINC SULFATE 220 MG CAP PO SCH (12:21)
[2016-08-01] MEDS: Levofloxacin 750 mg/150 ml D5W 750 MG/150 ML RTU IV SCH (12:27)
[2016-08-01] MEDS ORDERED: ENOXAPARIN 60 MG/0.6 ML PFS SQ SCH (18:00)
[2016-08-01] MEDS: MIRTAZAPINE 15 MG TAB PO SCH (21:18)
[2016-08-01] MEDS: SENNA CONCENTRATE TAB PO SCH (21:36)
[2016-08-02] MEDS: GUAIFENESIN 600 MG LA TAB PO SCH ×2 (00:41→12:31)
[2016-08-02] MEDS: Albuterol/Ipratropium Neb 3 ML NEB NEB SCH ×4 (01:43→21:48)
[2016-08-02] MEDS: D5-1/2NS/KCL 20 mEq 1,000 ML IV SCH ×3 (05:04→13:30)
[2016-08-02] MEDS: IMIPENEM CILASTATIN 500 MG in D5W 100 ML IV SCH ×3 (05:14→21:26)
[2016-08-02] MEDS: SODIUM BICARBONATE 650 MG (10 GR) TAB PO SCH ×3 (05:15→21:26)
[2016-08-02] MEDS: CARBIDOPA LEVODOPA PO SCH ×3 (05:15→21:28)
[2016-08-02] MEDS: BACLOFEN 10 MG TAB PO SCH ×3 (05:15→21:27)
[2016-08-02] MEDS: PERPHENAZINE 2 MG TAB PO SCH ×3 (05:15→21:27)
[2016-08-02 06:11] LABS: MPV 8.6 fL (7.4-10.4)
[2016-08-02 06:30] LABS: BLOOD UREA NITROGEN 25 MG/DL (9-20); CALCIUM 8.2 MG/DL (8.4-10.2); CALCULATED OSMOLALITY 281 MOs/Kg (270-290); CHLORIDE 109 mEq/L (98-107); GLUCOSE 93 MG/DL (70-99); SODIUM LEVEL 144 mEq/L (137-146)
[2016-08-02] MEDS: ALLOPURINOL 300 MG TAB PO SCH (07:23)
[2016-08-02] MEDS: METOPROLOL TARTRATE 50 MG TAB PO SCH ×2 (07:23→21:27)
[2016-08-02] MEDS: NYSTATIN ORAL SUSP 5 ML PO SCH ×4 (07:23→21:26)
[2016-08-02] MEDS: PEG-ELECTROLYTE 17 GM PACK PO SCH (07:29)
[2016-08-02] MEDS: Levofloxacin 750 mg/150 ml D5W 750 MG/150 ML RTU IV SCH (07:29)
--- NOTE | 2016-08-02 09:15 | GENMEDPROG ---
Chief Complaint: pneumonia, TME, atria fib, dementia, Parkinson's Dz, hypernatremia Currently: Reports: Cough, Wheezing, SOB DVT Prophylaxis: Yes - Physical Examination Vital Signs and I&O: Last Vital Signs Temp 98.3 F 08/02/16 07:00 Pulse 129 H 08/02/16 08:00 Resp 20 08/02/16 08:00 BP 101/69 08/02/16 08:00 Pulse Ox 98 08/02/16 08:29 Oxygen Pulse Oxygen Saturation 98 O2 Device Nasal Cannula Oxygen Flow Rate 1.5 Fraction of Inspired Oxygen ( 55 FIO2) Intake & Output 07/30/16 07/31/16 08/01/16 08/02/16 23:59 23:59 23:59 23:59 Intake Total 3401 2106 594 Output Total 1250 1800 400 Balance 2151 306 194 Patient's weight 100.811 kg 101.877 kg 101.877 kg General: Alert, Mild distress. negative: Oriented x3 HEENT: PERRLA, EOMI, Anicteric Sclera, Mucous membr. moist/pink, Pallor Neck: Normal Trachea alignment, Normal inspection Lymphatics: Normal Respiratory: Accessory Muscle Use, Diminished, Rhonchi, Wheezes Cardiovascular: Regular rate, No Gallops,Rubs/Murmurs GI: Normal bowel sounds, Soft, Non tender (non distended) Extremities/Musculoskeletal: Edema, DJD, Other (Normal Tone). negative: Cyanosis Skin: Warm,Dry and Intact, No breakdown Neurological: Normal speech, Strength at 5/5 X4 ext, Normal tone, Cranial nerves 3-12 NL, Drowsy Psych/Mental Status: Cooperative, Confused, Disoriented, Drowsy Lab/DI/Studies Reviewed: Laboratory Tests 08/02/16 08/02/16 08/02/16 05:22 05:25 05:25 WBC 12.3 H Hgb 10.5 L Hct 32.7 L Plt Count 215 Sodium 144 Potassium 4.0 Chloride 109 H Carbon Dioxide 28 Anion Gap 11 BUN 25 H Creatinine 1.30 H Estimated GFR (MDRD) 54 L Glucose 93 POC Capillary Glucose 112 H Calculated Osmolality 281 Calcium 8.2 L - Assessment (1) Acute encephalopathy Acute G93.40 - ENCEPHALOPATHY, UNSPECIFIED Comment/Plan: Likely due to his infection, and underlying dementia. Also hospital-acquired delirium. Improving as his fecal impaction has resolved, and his pneumonia is being treated. (2) Hospital-acquired pneumonia Acute J18.9 - PNEUMONIA, UNSPECIFIED ORGANISM Comment/Plan: Patient is receiving broad-spectrum antibiotics in the form of Levaquin and imipenem. Will adjust antibiotics based on culture results. (3) Pleural effusion Acute J90 - PLEURAL EFFUSION, NOT ELSEWHERE CLASSIFIED Comment/Plan: PROBABLY DUE TO CHF, POSSIBLY PNEUMONIA IS CONTRIBUTING ALSO. (4) Impacted stool in intestine Acute K56.41 - FECAL IMPACTION Comment/Plan: continue bowel regimen (5) Atrial fibrillation Chronic I48.91 - UNSPECIFIED ATRIAL FIBRILLATION Qualifiers: Atrial fibrillation type: chronic Qualified Code(s): I48.2 - Chronic atrial fibrillation Comment/Plan: Continue home meds. Rate controlled. Monitor on telemetry. Keep K more than 4 magnesium more than 2 (6) Parkinsons disease Chronic G20 - PARKINSON'S DISEASE Comment/Plan: Continue Sinemet and monitor. (7) Acute kidney injury Resolved N17.9 - ACUTE KIDNEY FAILURE, UNSPECIFIED Comment/Plan: Renal function close to baseline Case Care Discussed with: Patient, Nursing Staff Education/Counseling Given To: Patient, Family Member Education/Counseling Given Regarding: Diagnosis, Treatment, Prognosis
--- NOTE | 2016-08-02 09:49 | DIRPT ---
CLINICAL DATA: Known bilateral pleural effusions on prior CT examination EXAM: CHEST ULTRASOUND COMPARISON: 07/30/2016 , 08/01/2016 FINDINGS: Sonographic evaluation of the chest was performed for evaluation of pleural effusions. Small bilateral pleural effusions are noted but improved from the prior CT examination. No sizable effusion to allow for safe thoracentesis is noted. IMPRESSION: Small effusions without window for safe thoracentesis. They appear improved from the prior CT examination. Continued followup is recommended. Electronically Signed By: Quintin Robles M.D. On: 08/02/2016 09:47
[2016-08-02] MEDS: ZINC SULFATE 220 MG CAP PO SCH (11:17)
[2016-08-02] MEDS: VITAMINS, MULTIPLE CAP PO SCH (11:17)
[2016-08-02] MEDS: CALCIUM CARBONATE 500 MG TAB PO SCH ×2 (11:18→16:55)
[2016-08-02] MEDS: ASCORBIC ACID 500 MG TAB PO SCH ×2 (11:18→16:55)
[2016-08-02] MEDS ORDERED: DILTIAZEM 25 MG/5 ML VIAL IV ONE (15:40)
[2016-08-02] MEDS: Diltiazem HCl 100 MG in D5W 100 ML IV SCH (18:39)
[2016-08-02] MEDS: SENNA CONCENTRATE TAB PO SCH (21:12)
[2016-08-02] MEDS: MIRTAZAPINE 15 MG TAB PO SCH (21:27)
[2016-08-03] MEDS: GUAIFENESIN 600 MG LA TAB PO SCH ×2 (02:35→13:42)
[2016-08-03] MEDS: Albuterol/Ipratropium Neb 3 ML NEB NEB SCH ×4 (03:03→21:28)
[2016-08-03] MEDS: Diltiazem HCl 100 MG in D5W 100 ML IV SCH ×3 (05:00→17:12)
[2016-08-03] MEDS: D5-1/2NS/KCL 20 mEq 1,000 ML IV SCH ×2 (05:00→20:56)
[2016-08-03] MEDS: IMIPENEM CILASTATIN 500 MG in D5W 100 ML IV SCH ×3 (05:01→21:03)
[2016-08-03] MEDS: BACLOFEN 10 MG TAB PO SCH ×3 (05:24→21:06)
[2016-08-03] MEDS: PERPHENAZINE 2 MG TAB PO SCH ×3 (05:24→21:08)
[2016-08-03] MEDS: CARBIDOPA LEVODOPA PO SCH ×3 (05:24→21:08)
[2016-08-03] MEDS: SODIUM BICARBONATE 650 MG (10 GR) TAB PO SCH ×3 (05:24→21:08)
[2016-08-03 05:59] LABS: MPV 8.7 fL (7.4-10.4)
[2016-08-03 06:37] LABS: BLOOD UREA NITROGEN 22 MG/DL (9-20); CALCIUM 8.1 MG/DL (8.4-10.2); CALCULATED OSMOLALITY 274 MOs/Kg (270-290); CHLORIDE 108 mEq/L (98-107); GLUCOSE 71 MG/DL (70-99); SODIUM LEVEL 142 mEq/L (137-146)
[2016-08-03] MEDS: Levofloxacin 750 mg/150 ml D5W 750 MG/150 ML RTU IV SCH (07:52)
[2016-08-03] MEDS: NYSTATIN ORAL SUSP 5 ML PO SCH ×4 (07:52→21:09)
[2016-08-03] MEDS: PEG-ELECTROLYTE 17 GM PACK PO SCH (07:54)
[2016-08-03] MEDS: METOPROLOL TARTRATE 50 MG TAB PO SCH ×2 (07:54→21:23)
[2016-08-03] MEDS: ALLOPURINOL 300 MG TAB PO SCH (07:55)
[2016-08-03] MEDS: VITAMINS, MULTIPLE CAP PO SCH (07:57)
[2016-08-03] MEDS: CALCIUM CARBONATE 500 MG TAB PO SCH ×2 (07:57→17:15)
[2016-08-03] MEDS: ZINC SULFATE 220 MG CAP PO SCH (07:58)
[2016-08-03] MEDS: ASCORBIC ACID 500 MG TAB PO SCH ×2 (07:58→17:15)
--- NOTE | 2016-08-03 16:32 | GENMEDPROG ---
Chief Complaint: TME, pneumonia, atrial fib, Parkinson's Dz Currently: Reports: Cough, Wheezing, SOB DVT Prophylaxis: Yes - Physical Examination Vital Signs and I&O: Last Vital Signs Temp 98.7 F 08/03/16 10:00 Pulse 118 08/03/16 15:00 Resp 22 08/03/16 14:00 BP 99/55 L 08/03/16 15:00 Pulse Ox 93 08/03/16 15:00 Oxygen Pulse Oxygen Saturation 93 O2 Device Nasal Cannula Oxygen Flow Rate 1.5 Fraction of Inspired Oxygen ( 55 FIO2) Intake & Output 07/31/16 08/01/16 08/02/16 08/03/16 23:59 23:59 23:59 23:59 Intake Total 3401 2106 2246 1778 Output Total 1250 1800 1275 900 Balance 2151 306 971 878 Patient's weight 100.811 kg 101.877 kg 101.877 kg 101.877 kg General: Alert, Mild distress. negative: Oriented x3 HEENT: Normal, PERRLA, EOMI, Anicteric Sclera, Mucous membr. moist/pink Neck: Normal Trachea alignment, Normal inspection Lymphatics: Normal Respiratory: Accessory Muscle Use, Diminished, Rhonchi, Wheezes Cardiovascular: Regular rate, No Gallops,Rubs/Murmurs GI: Normal bowel sounds, Soft, Non tender (non distended) Extremities/Musculoskeletal: Other (Normal Tone). negative: Edema, Cyanosis Skin: Warm,Dry and Intact Neurological: Normal tone, Cranial nerves 3-12 NL Psych/Mental Status: Cooperative, Confabulating, Confused, Disoriented Lab/DI/Studies Reviewed: Laboratory Tests 08/03/16 08/03/16 05:05 05:05 WBC 12.6 H Hgb 10.7 L Hct 33.9 L Plt Count 206 Sodium 142 Potassium 4.3 Chloride 108 H Carbon Dioxide 29 Anion Gap 9 BUN 22 H Creatinine 1.20 Estimated GFR (MDRD) 59 L Glucose 71 Calculated Osmolality 274 Calcium 8.1 L - Assessment (1) Acute encephalopathy Acute G93.40 - ENCEPHALOPATHY, UNSPECIFIED Comment/Plan: Likely due to his infection, and underlying dementia. Also hospital-acquired delirium. Improving as his fecal impaction has resolved, and his pneumonia is being treated. (2) Hospital-acquired pneumonia Acute J18.9 - PNEUMONIA, UNSPECIFIED ORGANISM Comment/Plan: Patient will receive broad-spectrum antibiotics in the form of Levaquin and imipenem. Will adjust antibiotics based on culture results. (3) Hypernatremia Acute E87.0 - HYPEROSMOLALITY AND HYPERNATREMIA Comment/Plan: Patient will receive IV fluids in the form of D5 half-normal saline.monotor bmp (4) Atrial fibrillation Chronic I48.91 - UNSPECIFIED ATRIAL FIBRILLATION Qualifiers: Atrial fibrillation type: chronic Qualified Code(s): I48.2 - Chronic atrial fibrillation Comment/Plan: Continue home meds. Rate controlled. Monitor on telemetry. Keep K more than 4 magnesium more than 2 (5) Dysphagia Chronic R13.10 - DYSPHAGIA, UNSPECIFIED Qualifiers: Dysphagia type: oropharyngeal phase Qualified Code(s): R13.12 - Dysphagia, oropharyngeal phase Comment/Plan: Continue aspiration precautions and special diet (6) Parkinsons disease Chronic G20 - PARKINSON'S DISEASE Comment/Plan: Continue Sinemet and monitor. (7) Impacted stool in intestine Acute K56.41 - FECAL IMPACTION Comment/Plan: continue bowel regimen (8) Chronic renal disease Chronic N18.9 - CHRONIC KIDNEY DISEASE, UNSPECIFIED Qualifiers: Chronic kidney disease stage: stage 2 (mild) Qualified Code(s): N18.2 - Chronic kidney disease, stage 2 (mild) Comment/Plan: Monitor renal function daily, but nephro toxic agents. (9) Elevated lipase Acute R74.8 - ABNORMAL LEVELS OF OTHER SERUM ENZYMES Comment/Plan: Recheck. Exam benign.
[2016-08-03] MEDS: APIXABAN 5 MG TABLET PO SCH (21:05)
[2016-08-03] MEDS: MIRTAZAPINE 15 MG TAB PO SCH (21:07)
[2016-08-03] MEDS: SENNA CONCENTRATE TAB PO SCH (21:09)
[2016-08-04] MEDS: Albuterol/Ipratropium Neb 3 ML NEB NEB SCH ×4 (02:03→20:43)
[2016-08-04] MEDS: Diltiazem HCl 100 MG in D5W 100 ML IV SCH ×3 (02:45→20:41)
[2016-08-04 06:59] LABS: MPV 8.7 fL (7.4-10.4)
[2016-08-04] MEDS: IMIPENEM CILASTATIN 500 MG in D5W 100 ML IV SCH ×3 (07:00→21:17)
[2016-08-04 07:06] LABS: BLOOD UREA NITROGEN 19 MG/DL (9-20); CALCIUM 7.9 MG/DL (8.4-10.2); CALCULATED OSMOLALITY 267 MOs/Kg (270-290); CHLORIDE 105 mEq/L (98-107); GLUCOSE 80 MG/DL (70-99); SODIUM LEVEL 138 mEq/L (137-146)
[2016-08-04] MEDS: BACLOFEN 10 MG TAB PO SCH ×3 (07:41→20:44)
[2016-08-04] MEDS: SODIUM BICARBONATE 650 MG (10 GR) TAB PO SCH ×3 (07:41→20:44)
[2016-08-04] MEDS: CARBIDOPA LEVODOPA PO SCH ×3 (07:41→20:42)
[2016-08-04] MEDS: PERPHENAZINE 2 MG TAB PO SCH ×3 (07:42→20:42)
[2016-08-04] MEDS: Levofloxacin 750 mg/150 ml D5W 750 MG/150 ML RTU IV SCH (11:01)
[2016-08-04] MEDS: METOPROLOL TARTRATE 50 MG TAB PO SCH ×2 (11:01→20:43)
[2016-08-04] MEDS: D5-1/2NS/KCL 20 mEq 1,000 ML IV SCH (11:01)
[2016-08-04] MEDS: APIXABAN 5 MG TABLET PO SCH ×2 (11:01→20:41)
[2016-08-04] MEDS: NYSTATIN ORAL SUSP 5 ML PO SCH ×4 (11:01→20:44)
[2016-08-04] MEDS: ZINC SULFATE 220 MG CAP PO SCH (11:02)
[2016-08-04] MEDS: ASCORBIC ACID 500 MG TAB PO SCH ×2 (11:02→16:36)
[2016-08-04] MEDS: VITAMINS, MULTIPLE CAP PO SCH (11:02)
[2016-08-04] MEDS: PEG-ELECTROLYTE 17 GM PACK PO SCH (11:02)
[2016-08-04] MEDS: CALCIUM CARBONATE 500 MG TAB PO SCH ×2 (11:02→16:35)
[2016-08-04] MEDS: ALLOPURINOL 300 MG TAB PO SCH (11:02)
[2016-08-04] MEDS: GUAIFENESIN 600 MG LA TAB PO SCH ×2 (11:03→20:43)
--- NOTE | 2016-08-04 14:02 | GENMEDPROG ---
Chief Complaint: pneumonia, delirium, atrial fib, pleural effusions, atrial fib, Notes Reviewed: Yes Events from last night noted and discussed with Clinical Staff Currently: Reports: Cough, Wheezing, SOB DVT Prophylaxis: Yes - Physical Examination Vital Signs and I&O: Last Vital Signs Temp 97.6 F 08/04/16 10:00 Pulse 81 08/04/16 13:00 Resp 18 08/04/16 10:00 BP 118/63 08/04/16 13:00 Pulse Ox 97 08/04/16 13:00 Oxygen Pulse Oxygen Saturation 97 O2 Device Nasal Cannula Oxygen Flow Rate 3 Fraction of Inspired Oxygen ( 55 FIO2) Intake & Output 08/01/16 08/02/16 08/03/16 08/04/16 23:59 23:59 23:59 23:59 Intake Total 2106 2246 2824 834 Output Total 1800 1275 1500 750 Balance 965 654 6649 84 Patient's weight 101.877 kg 101.877 kg 101.877 kg 107.002 kg General: Alert, Mild distress. negative: Oriented x3 HEENT: Normal, PERRLA, EOMI, Anicteric Sclera, Mucous membr. moist/pink Neck: Normal Trachea alignment, Normal inspection Lymphatics: Normal Respiratory: Normal - CTA, Diminished Cardiovascular: Regular rate (HEART RATE IS SLOWER, MORE CONTROLLED), Normal S1 , No Gallops,Rubs/Murmurs, Normal S2, Chest Non Tender, Irregular. negative: LE Edema GI: Normal bowel sounds, Soft, Non tender (non distended) Extremities/Musculoskeletal: DJD, Other (Normal Tone). negative: Edema, Cyanosis Skin: Warm,Dry and Intact, No breakdown Neurological: Normal speech, Normal tone, Cranial nerves 3-12 NL, Drowsy Psych/Mental Status: Cooperative, Confabulating, Confused, Disoriented Lab/DI/Studies Reviewed: Laboratory Tests 08/04/16 08/04/16 06:19 06:19 WBC 13.2 H Hgb 10.1 L Hct 30.9 L Plt Count 164 Sodium 138 Potassium 4.0 Chloride 105 Carbon Dioxide 28 Anion Gap 9 BUN 19 Creatinine 1.20 Estimated GFR (MDRD) 59 L Glucose 80 Calculated Osmolality 267 L Calcium 7.9 L - Assessment (1) Hospital-acquired pneumonia Acute J18.9 - PNEUMONIA, UNSPECIFIED ORGANISM Comment/Plan: Patient is receiving broad-spectrum antibiotics in the form of Levaquin and imipenem. Will adjust antibiotics based on culture results. (2) Acute encephalopathy Acute G93.40 - ENCEPHALOPATHY, UNSPECIFIED Comment/Plan: Likely due to his infection, and underlying dementia. Also hospital-acquired delirium. Improving as his fecal impaction has resolved, and his pneumonia is being treated. (3) Hypernatremia Acute E87.0 - HYPEROSMOLALITY AND HYPERNATREMIA Comment/Plan: Sodium was 150 on admission. Patient receiving IV fluids in the form of D5 half-normal saline. Monitor electrolytes (4) Atrial fibrillation Chronic I48.91 - UNSPECIFIED ATRIAL FIBRILLATION Qualifiers: Atrial fibrillation type: chronic Qualified Code(s): I48.2 - Chronic atrial fibrillation Comment/Plan: Continue home meds. Rate controlled. Monitor on telemetry. Keep K more than 4 magnesium more than 2 (5) Dysphagia Chronic R13.10 - DYSPHAGIA, UNSPECIFIED Qualifiers: Dysphagia type: oropharyngeal phase Qualified Code(s): R13.12 - Dysphagia, oropharyngeal phase Comment/Plan: Continue aspiration precautions and special diet (6) Parkinsons disease Chronic G20 - PARKINSON'S DISEASE Comment/Plan: Continue Sinemet and monitor. (7) Impacted stool in intestine Acute K56.41 - FECAL IMPACTION Comment/Plan: continue bowel regimen (8) Chronic renal disease Chronic N18.9 - CHRONIC KIDNEY DISEASE, UNSPECIFIED Qualifiers: Chronic kidney disease stage: stage 2 (mild) Qualified Code(s): N18.2 - Chronic kidney disease, stage 2 (mild) Comment/Plan: Monitor renal function daily, but nephro toxic agents. (9) Elevated lipase Acute R74.8 - ABNORMAL LEVELS OF OTHER SERUM ENZYMES Comment/Plan: Recheck. Exam benign. (10) Pleural effusion Acute J90 - PLEURAL EFFUSION, NOT ELSEWHERE CLASSIFIED Comment/Plan: PROBABLY DUE TO CHF, POSSIBLY PNEUMONIA IS CONTRIBUTING ALSO. Case Care Discussed with: Patient, Nursing Staff Education/Counseling Given To: Patient Education/Counseling Given Regarding: Diagnosis, Treatment, Prognosis
--- NOTE | 2016-08-04 15:23 | DIRPT ---
CLINICAL DATA: Followup pleural effusions. CHF. Admission diagnosis is respiratory failure and hypoxia. EXAM: PORTABLE CHEST 1 VIEW COMPARISON: 07/30/2016. FINDINGS: Cardiac silhouette is mildly enlarged. Changes from cardiac surgery are stable. No mediastinal or hilar masses. Hazy opacity projects in the left mid and lower lung and at the right lung base. This is similar to the prior study. No obvious pleural effusion. No pneumothorax. IMPRESSION: 1. Chest radiograph is similar in appearance to the prior study allowing for differences in patient positioning and technique. 2. Hazy left mid and bilateral lung base opacities. Findings could be due to asymmetric edema. Opacities may reflect infection or be due to atelectasis or a combination. 3. No pleural effusions identified. There may be small effusions obscured by the hemidiaphragms. Electronically Signed By: Sonido Grant M.D. On: 08/04/2016 15:20
[2016-08-04] MEDS: MIRTAZAPINE 15 MG TAB PO SCH (20:42)
[2016-08-04] MEDS: SENNA CONCENTRATE TAB PO SCH (20:42)
[2016-08-05] MEDS: D5-1/2NS/KCL 20 mEq 1,000 ML IV SCH ×2 (01:31→03:05)
[2016-08-05] MEDS: Albuterol/Ipratropium Neb 3 ML NEB NEB SCH ×4 (02:12→20:10)
[2016-08-05 04:13] LABS: MPV 7.9 fL (7.4-10.4)
[2016-08-05 04:43] LABS: BLOOD UREA NITROGEN 18 MG/DL (9-20); CALCIUM 7.4 MG/DL (8.4-10.2); CALCULATED OSMOLALITY 262 MOs/Kg (270-290); CHLORIDE 103 mEq/L (98-107); GLUCOSE 92 MG/DL (70-99); SODIUM LEVEL 135 mEq/L (137-146)
[2016-08-05] MEDS: IMIPENEM CILASTATIN 500 MG in D5W 100 ML IV SCH ×3 (05:16→22:47)
[2016-08-05] MEDS: CARBIDOPA LEVODOPA PO SCH ×3 (05:23→22:50)
[2016-08-05] MEDS: PERPHENAZINE 2 MG TAB PO SCH ×3 (05:23→22:50)
[2016-08-05] MEDS: SODIUM BICARBONATE 650 MG (10 GR) TAB PO SCH ×3 (05:23→22:48)
[2016-08-05] MEDS: BACLOFEN 10 MG TAB PO SCH ×3 (05:23→22:48)
[2016-08-05] MEDS: Levofloxacin 750 mg/150 ml D5W 750 MG/150 ML RTU IV SCH (07:49)
[2016-08-05] MEDS: NYSTATIN ORAL SUSP 5 ML PO SCH ×4 (07:50→22:51)
[2016-08-05] MEDS: Diltiazem HCl 100 MG in D5W 100 ML IV SCH ×3 (10:18→16:50)
[2016-08-05] MEDS: METOPROLOL TARTRATE 50 MG TAB PO SCH ×2 (10:19→22:50)
[2016-08-05] MEDS: GUAIFENESIN 600 MG LA TAB PO SCH ×2 (10:19→22:51)
[2016-08-05] MEDS: ALLOPURINOL 300 MG TAB PO SCH (10:21)
--- NOTE | 2016-08-05 10:51 | GENMEDPROG ---
Chief Complaint: PNEUMONIA, TME, ATRIAL FIB W/ RVR, CLIVE, PARKINSON'S DZ, DEHYDRATION Currently: Reports: Cough, Wheezing, SOB DVT Prophylaxis: Yes - Physical Examination Vital Signs and I&O: Last Vital Signs Temp 98.7 F 08/05/16 10:00 Pulse 107 08/05/16 10:00 Resp 22 08/05/16 10:00 BP 100/62 08/05/16 10:00 Pulse Ox 93 08/05/16 10:00 Oxygen Pulse Oxygen Saturation 93 O2 Device Nasal Cannula Oxygen Flow Rate 2 Fraction of Inspired Oxygen ( 55 FIO2) Intake & Output 08/02/16 08/03/16 08/04/16 08/05/16 23:59 23:59 23:59 23:59 Intake Total 2246 2824 1985 948 Output Total 1275 1500 1350 675 Balance 971 1324 635 273 Patient's weight 101.877 kg 101.877 kg 107.002 kg 107.229 kg General: Alert, Cooperative, Mild distress, Weakness, Fatigue. negative: Oriented x3 HEENT: Normal, PERRLA, EOMI, Anicteric Sclera, Mucous membr. moist/pink Neck: Normal Trachea alignment, Normal inspection Lymphatics: Normal Respiratory: Diminished, Rales Cardiovascular: Normal S1, No Gallops,Rubs/Murmurs, Normal S2, Chest Non Tender , Irregular (HEART RATE IS SLOWER, MORE CONTROLLED). negative: LE Edema GI: Normal bowel sounds, Soft, Non tender (non distended) Extremities/Musculoskeletal: DJD, Other (Normal Tone). negative: Edema, Cyanosis Skin: Warm,Dry and Intact, No breakdown Neurological: Normal speech, Normal tone, Cranial nerves 3-12 NL, Drowsy Psych/Mental Status: Cooperative, Confabulating, Confused, Disoriented Lab/DI/Studies Reviewed: Laboratory Tests 08/05/16 08/05/16 04:00 04:00 WBC 12.9 H Hgb 9.9 L Hct 30.9 L Plt Count 191 Sodium 135 L Potassium 3.9 Chloride 103 Carbon Dioxide 28 Anion Gap 8 BUN 18 Creatinine 1.10 Estimated GFR (MDRD) > 60 Glucose 92 Calculated Osmolality 262 L Calcium 7.4 L - Assessment (1) Hospital-acquired pneumonia Acute J18.9 - PNEUMONIA, UNSPECIFIED ORGANISM Comment/Plan: Patient is receiving broad-spectrum antibiotics in the form of Levaquin and imipenem. Will adjust antibiotics based on culture results. (2) Acute encephalopathy Acute G93.40 - ENCEPHALOPATHY, UNSPECIFIED Comment/Plan: Likely due to his infection, and underlying dementia. Also hospital-acquired delirium. Improving as his fecal impaction has resolved, and his pneumonia is being treated. (3) Hypernatremia Acute E87.0 - HYPEROSMOLALITY AND HYPERNATREMIA Comment/Plan: Sodium was 150 on admission. Patient receiving IV fluids in the form of D5 half-normal saline. Monitor electrolytes (4) Atrial fibrillation Chronic I48.91 - UNSPECIFIED ATRIAL FIBRILLATION Qualifiers: Atrial fibrillation type: chronic Qualified Code(s): I48.2 - Chronic atrial fibrillation Comment/Plan: Continue home meds. Rate controlled. Monitor on telemetry. Keep K more than 4 magnesium more than 2 (5) Dysphagia Chronic R13.10 - DYSPHAGIA, UNSPECIFIED Qualifiers: Dysphagia type: oropharyngeal phase Qualified Code(s): R13.12 - Dysphagia, oropharyngeal phase Comment/Plan: Continue aspiration precautions and special diet (6) Parkinsons disease Chronic G20 - PARKINSON'S DISEASE Comment/Plan: Continue Sinemet and monitor. (7) Impacted stool in intestine Acute K56.41 - FECAL IMPACTION Comment/Plan: continue bowel regimen (8) Chronic renal disease Chronic N18.9 - CHRONIC KIDNEY DISEASE, UNSPECIFIED Qualifiers: Chronic kidney disease stage: stage 2 (mild) Qualified Code(s): N18.2 - Chronic kidney disease, stage 2 (mild) Comment/Plan: Monitor renal function daily, but nephro toxic agents. (9) Elevated lipase Acute R74.8 - ABNORMAL LEVELS OF OTHER SERUM ENZYMES Comment/Plan: Recheck. Exam benign. (10) Pleural effusion Acute J90 - PLEURAL EFFUSION, NOT ELSEWHERE CLASSIFIED Comment/Plan: PROBABLY DUE TO CHF, POSSIBLY PNEUMONIA IS CONTRIBUTING ALSO.
[2016-08-05] MEDS ORDERED: SODIUM CHLORIDE 0.9% 3 ML FLUSH FLUSH PRN (10:53)
[2016-08-05] MEDS ORDERED: SODIUM CHLORIDE 0.9% 3 ML FLUSH FLUSH SCH (11:00)
[2016-08-05] MEDS: APIXABAN 5 MG TABLET PO SCH ×2 (11:24→22:25)
[2016-08-05] MEDS: PEG-ELECTROLYTE 17 GM PACK PO SCH (11:25)
[2016-08-05] MEDS: ASCORBIC ACID 500 MG TAB PO SCH ×2 (11:26→17:12)
[2016-08-05] MEDS: VITAMINS, MULTIPLE CAP PO SCH (11:26)
[2016-08-05] MEDS: CALCIUM CARBONATE 500 MG TAB PO SCH ×2 (11:26→17:12)
[2016-08-05] MEDS: ZINC SULFATE 220 MG CAP PO SCH (11:27)
[2016-08-05] MEDS: DILTIAZEM 60 MG TAB PO SCH ×3 (13:24→22:57)
[2016-08-05] MEDS: SODIUM CHLORIDE 0.9% 3 ML FLUSH FLUSH SCH (17:38)
[2016-08-05] MEDS: SENNA CONCENTRATE TAB PO SCH (22:48)
[2016-08-05] MEDS: MIRTAZAPINE 15 MG TAB PO SCH (22:48)
[2016-08-06] MEDS: Albuterol/Ipratropium Neb 3 ML NEB NEB SCH ×4 (02:08→20:49)
[2016-08-06 04:52] LABS: BLOOD UREA NITROGEN 19 MG/DL (9-20); CALCIUM 7.5 MG/DL (8.4-10.2); CALCULATED OSMOLALITY 259 MOs/Kg (270-290); CHLORIDE 101 mEq/L (98-107); GLUCOSE 77 MG/DL (70-99); SODIUM LEVEL 134 mEq/L (137-146)
[2016-08-06] MEDS: SODIUM BICARBONATE 650 MG (10 GR) TAB PO SCH ×3 (06:19→21:50)
[2016-08-06] MEDS: CARBIDOPA LEVODOPA PO SCH ×3 (06:20→21:51)
[2016-08-06] MEDS: IMIPENEM CILASTATIN 500 MG in D5W 100 ML IV SCH ×3 (06:20→21:50)
[2016-08-06] MEDS: PERPHENAZINE 2 MG TAB PO SCH ×3 (06:20→21:51)
[2016-08-06] MEDS: SODIUM CHLORIDE 0.9% 3 ML FLUSH FLUSH SCH ×2 (06:20→18:38)
[2016-08-06] MEDS: DILTIAZEM 60 MG TAB PO SCH ×3 (06:20→18:38)
[2016-08-06] MEDS: BACLOFEN 10 MG TAB PO SCH ×3 (06:20→21:50)
[2016-08-06] MEDS: GUAIFENESIN 600 MG LA TAB PO SCH ×2 (09:23→09:25)
[2016-08-06] MEDS: ALLOPURINOL 300 MG TAB PO SCH ×2 (09:23→09:25)
[2016-08-06] MEDS: METOPROLOL TARTRATE 50 MG TAB PO SCH ×2 (09:25→21:55)
[2016-08-06] MEDS: Levofloxacin 750 mg/150 ml D5W 750 MG/150 ML RTU IV SCH (09:26)
[2016-08-06] MEDS: NYSTATIN ORAL SUSP 5 ML PO SCH ×4 (09:26→21:51)
[2016-08-06] MEDS: PEG-ELECTROLYTE 17 GM PACK PO SCH (09:27)
[2016-08-06] MEDS: ZINC SULFATE 220 MG CAP PO SCH (12:03)
[2016-08-06] MEDS: CALCIUM CARBONATE 500 MG TAB PO SCH ×2 (12:03→18:38)
[2016-08-06] MEDS: VITAMINS, MULTIPLE CAP PO SCH (12:04)
[2016-08-06] MEDS: ASCORBIC ACID 500 MG TAB PO SCH ×2 (12:04→18:38)
[2016-08-06] MEDS: APIXABAN 5 MG TABLET PO SCH (12:09)
--- NOTE | 2016-08-06 13:47 | GENMEDPROG ---
Currently: Reports: Cough, Wheezing, SOB DVT Prophylaxis: Yes - Physical Examination Vital Signs and I&O: Last Vital Signs Temp 98.2 F 08/06/16 12:00 Pulse 87 08/06/16 12:00 Resp 18 08/06/16 12:00 BP 98/59 L 08/06/16 12:00 Pulse Ox 96 08/06/16 12:00 Oxygen Pulse Oxygen Saturation 96 O2 Device Nasal Cannula Oxygen Flow Rate 1.5 Fraction of Inspired Oxygen ( 55 FIO2) Intake & Output 08/03/16 08/04/16 08/05/16 08/06/16 23:59 23:59 23:59 23:59 Intake Total 2824 1985 1444 571 Output Total 1500 1350 1225 275 Balance 1324 635 219 296 Patient's weight 101.877 kg 107.002 kg 103.737 kg 103.918 kg General: Alert, Cooperative, Mild distress, Weakness, Fatigue. negative: Oriented x3 HEENT: Normal, PERRLA, EOMI, Anicteric Sclera, Mucous membr. moist/pink Neck: Normal Trachea alignment, Normal inspection Lymphatics: Normal Respiratory: Diminished, Rales Cardiovascular: Normal S1, No Gallops,Rubs/Murmurs, Normal S2, Chest Non Tender , Irregular (HEART RATE IS SLOWER, MORE CONTROLLED). negative: LE Edema GI: Normal bowel sounds, Soft, Non tender (non distended) Extremities/Musculoskeletal: DJD, Other (Normal Tone). negative: Edema, Cyanosis Skin: Warm,Dry and Intact, No breakdown Neurological: Normal speech, Normal tone, Cranial nerves 3-12 NL, Drowsy Psych/Mental Status: Cooperative, Confabulating, Confused, Disoriented - Assessment (1) Hospital-acquired pneumonia Acute J18.9 - PNEUMONIA, UNSPECIFIED ORGANISM Comment/Plan: Patient is receiving broad-spectrum antibiotics in the form of Levaquin and imipenem. Will adjust antibiotics based on culture results. (2) Acute encephalopathy Acute G93.40 - ENCEPHALOPATHY, UNSPECIFIED Comment/Plan: Likely due to his infection, and underlying dementia. Also hospital-acquired delirium. Improving as his fecal impaction has resolved, and his pneumonia is being treated. (3) Hypernatremia Acute E87.0 - HYPEROSMOLALITY AND HYPERNATREMIA Comment/Plan: Sodium was 150 on admission. Patient receiving IV fluids in the form of D5 half-normal saline. Monitor electrolytes (4) Atrial fibrillation Chronic I48.91 - UNSPECIFIED ATRIAL FIBRILLATION Qualifiers: Atrial fibrillation type: chronic Qualified Code(s): I48.2 - Chronic atrial fibrillation Comment/Plan: Continue home meds. Rate controlled. Monitor on telemetry. Keep K more than 4 magnesium more than 2 (5) Dysphagia Chronic R13.10 - DYSPHAGIA, UNSPECIFIED Qualifiers: Dysphagia type: oropharyngeal phase Qualified Code(s): R13.12 - Dysphagia, oropharyngeal phase Comment/Plan: Continue aspiration precautions and special diet (6) Parkinsons disease Chronic G20 - PARKINSON'S DISEASE Comment/Plan: Continue Sinemet and monitor. (7) Impacted stool in intestine Acute K56.41 - FECAL IMPACTION Comment/Plan: continue bowel regimen (8) Chronic renal disease Chronic N18.9 - CHRONIC KIDNEY DISEASE, UNSPECIFIED Qualifiers: Chronic kidney disease stage: stage 2 (mild) Qualified Code(s): N18.2 - Chronic kidney disease, stage 2 (mild) Comment/Plan: Monitor renal function daily, but nephro toxic agents. (9) Elevated lipase Acute R74.8 - ABNORMAL LEVELS OF OTHER SERUM ENZYMES Comment/Plan: Recheck. Exam benign. (10) Pleural effusion Acute J90 - PLEURAL EFFUSION, NOT ELSEWHERE CLASSIFIED Comment/Plan: PROBABLY DUE TO CHF, POSSIBLY PNEUMONIA IS CONTRIBUTING ALSO.
[2016-08-06] MEDS ORDERED: Medication Special Instructions SCH (14:00)
[2016-08-06] MEDS: SENNA CONCENTRATE TAB PO SCH (21:50)
[2016-08-06] MEDS: MIRTAZAPINE 15 MG TAB PO SCH (21:51)
[2016-08-06] MEDS: ACETAMINOPHEN 325 MG/TAB TABLET PO PRN (22:38)
[2016-08-07] MEDS ORDERED: POTASSIUM CHLORIDE 20 MEQ TAB PO ONE (00:51)
[2016-08-07] MEDS ORDERED: Magnesium Sulfate 2 gm/D5W 2 GM/50 ML RTU IV ONE (00:53)
[2016-08-07] MEDS: DILTIAZEM 60 MG TAB PO SCH ×4 (01:15→16:34)
[2016-08-07] MEDS: Albuterol/Ipratropium Neb 3 ML NEB NEB SCH ×4 (02:21→21:23)
[2016-08-07] MEDS: SODIUM BICARBONATE 650 MG (10 GR) TAB PO SCH ×3 (05:53→21:29)
[2016-08-07] MEDS: CARBIDOPA LEVODOPA PO SCH ×3 (05:53→21:31)
[2016-08-07] MEDS: BACLOFEN 10 MG TAB PO SCH ×3 (05:53→21:28)
[2016-08-07] MEDS: SODIUM CHLORIDE 0.9% 3 ML FLUSH FLUSH SCH ×2 (05:53→16:34)
[2016-08-07] MEDS: PERPHENAZINE 2 MG TAB PO SCH (05:53)
[2016-08-07 06:07] LABS: BLOOD UREA NITROGEN 19 MG/DL (9-20); CALCIUM 7.7 MG/DL (8.4-10.2); CALCULATED OSMOLALITY 260 MOs/Kg (270-290); CHLORIDE 101 mEq/L (98-107); GLUCOSE 67 MG/DL (70-99); SODIUM LEVEL 135 mEq/L (137-146)
[2016-08-07] MEDS: GUAIFENESIN 600 MG LA TAB PO SCH ×2 (08:54→21:28)
[2016-08-07] MEDS: PEG-ELECTROLYTE 17 GM PACK PO SCH (08:54)
[2016-08-07] MEDS: METOPROLOL TARTRATE 50 MG TAB PO SCH ×2 (08:54→21:28)
[2016-08-07] MEDS: NYSTATIN ORAL SUSP 5 ML PO SCH ×4 (08:54→21:30)
[2016-08-07] MEDS ORDERED: VARIBAR NECTAR 40% BARIUM 240 ML ONE (09:55)
[2016-08-07] MEDS ORDERED: VARIBAR HONEY 40% BARIUM 250 ML ONE (09:55)
[2016-08-07] MEDS ORDERED: VARIBAR THIN 40% BARIUM 250 ML ONE (09:55)
[2016-08-07] MEDS: ZINC SULFATE 220 MG CAP PO SCH (11:25)
[2016-08-07] MEDS: ASCORBIC ACID 500 MG TAB PO SCH ×2 (11:25→16:34)
[2016-08-07] MEDS: VITAMINS, MULTIPLE CAP PO SCH (11:25)
[2016-08-07] MEDS: CALCIUM CARBONATE 500 MG TAB PO SCH ×2 (11:26→16:34)
--- NOTE | 2016-08-07 12:21 | GENMEDPROG ---
Chief Complaint: aspiration pneumonia, FTT, Parkinson's Dz, dementia, atrial fib, hypothyroidism , multi-infarct dementia. Subjective Note: Patient continues to suffer from persistent chest congestion, has not done well with swallowing studies. Tolerating [place] thick liquids at this point. Notes Reviewed: Yes Events from last night noted and discussed with Clinical Staff Currently: Reports: Cough, Wheezing, SOB DVT Prophylaxis: Yes - Physical Examination Vital Signs and I&O: Last Vital Signs Temp 98.1 F 08/07/16 11:25 Pulse 89 08/07/16 11:30 Resp 18 08/07/16 11:25 BP 109/65 08/07/16 11:25 Pulse Ox 98 08/07/16 11:25 Oxygen Pulse Oxygen Saturation 98 O2 Device Nasal Cannula Oxygen Flow Rate 1 Fraction of Inspired Oxygen ( 55 FIO2) Intake & Output 08/04/16 08/05/16 08/06/16 08/07/16 23:59 23:59 23:59 23:59 Intake Total 1985 1444 1021 Output Total 1350 1225 875 Balance 635 219 146 Patient's weight 107.002 kg 103.737 kg 103.918 kg 104.961 kg General: Alert, Cooperative, Mild distress, Weakness, Fatigue. negative: Oriented x3 HEENT: Normal, PERRLA, EOMI, Anicteric Sclera, Mucous membr. moist/pink Neck: Normal Trachea alignment, Normal inspection Lymphatics: Normal Respiratory: Diminished, Rales Cardiovascular: Normal S1, No Gallops,Rubs/Murmurs, Normal S2, Chest Non Tender , Irregular (HEART RATE IS SLOWER, MORE CONTROLLED). negative: LE Edema GI: Normal bowel sounds, Soft, Non tender (non distended) Extremities/Musculoskeletal: DJD, Other (Normal Tone). negative: Edema, Cyanosis Skin: Warm,Dry and Intact, No breakdown Neurological: Normal speech, Normal tone, Cranial nerves 3-12 NL, Drowsy Psych/Mental Status: Cooperative, Confabulating, Confused, Disoriented. negative: Normal Affect (flat) Lab/DI/Studies Reviewed: Laboratory Tests 08/07/16 04:55 Sodium 135 L Potassium 4.0 Chloride 101 Carbon Dioxide 26 Anion Gap 12 BUN 19 Creatinine 1.10 Estimated GFR (MDRD) > 60 Glucose 67 L Calculated Osmolality 260 L Calcium 7.7 L - Assessment (1) Acute encephalopathy Acute G93.40 - ENCEPHALOPATHY, UNSPECIFIED Comment/Plan: Likely due to his underlying dementia. Also hospital-acquired delirium. He also has a history of Parkinson's disease. Is being actively treated and has a resting tremor (pill- rolling type) consistent with Parkinson's disease. Also has flat affect. (2) Hypernatremia Acute E87.0 - HYPEROSMOLALITY AND HYPERNATREMIA Comment/Plan: Sodium was 150 on admission. Patient receiving IV fluids in the form of D5 half-normal saline. Monitor electrolytes (3) Atrial fibrillation Chronic I48.91 - UNSPECIFIED ATRIAL FIBRILLATION Qualifiers: Atrial fibrillation type: chronic Qualified Code(s): I48.2 - Chronic atrial fibrillation Comment/Plan: Continue home meds. Rate controlled. Monitor on telemetry. Keep K more than 4 magnesium more than 2 (4) Dysphagia Chronic R13.10 - DYSPHAGIA, UNSPECIFIED Qualifiers: Dysphagia type: oropharyngeal phase Qualified Code(s): R13.12 - Dysphagia, oropharyngeal phase Comment/Plan: Continue aspiration precautions and special diet (5) Parkinsons disease Chronic G20 - PARKINSON'S DISEASE Comment/Plan: Continue Sinemet and monitor. (6) Chronic renal disease Chronic N18.9 - CHRONIC KIDNEY DISEASE, UNSPECIFIED Qualifiers: Chronic kidney disease stage: stage 2 (mild) Qualified Code(s): N18.2 - Chronic kidney disease, stage 2 (mild) Comment/Plan: Monitor renal function daily, but nephro toxic agents. (7) Elevated lipase Acute R74.8 - ABNORMAL LEVELS OF OTHER SERUM ENZYMES Comment/Plan: Recheck. Exam benign. (8) Pleural effusion Acute J90 - PLEURAL EFFUSION, NOT ELSEWHERE CLASSIFIED Comment/Plan: PROBABLY DUE TO CHF, POSSIBLY PNEUMONIA IS CONTRIBUTING ALSO. (9) Impacted stool in intestine Resolved K56.41 - FECAL IMPACTION Comment/Plan: continue bowel regimen (10) Hospital-acquired pneumonia Acute J18.9 - PNEUMONIA, UNSPECIFIED ORGANISM Comment/Plan: Patient comleted 8 days of IV antibiotics (Levaquin and imipenem). All cultures are negative, antibiotics have been stopped at this time.
--- NOTE | 2016-08-07 14:59 | DIRPT ---
CLINICAL DATA: Confusion today. History of dementia and Parkinson's disease. EXAM: CT HEAD WITHOUT CONTRAST TECHNIQUE: Contiguous axial images were obtained from the base of the skull through the vertex without intravenous contrast. COMPARISON: None. FINDINGS: The ventricles are normal in size, for this patient's age, and normal in configuration. There is sulcal enlargement reflecting mild atrophy. There are no parenchymal masses or mass effect. There is no evidence of a cortical infarct. There are no extra-axial masses or abnormal fluid collections. There is no intracranial hemorrhage. Right sphenoid sinuses opacified. Remaining visualized sinuses are clear as are the mastoid air cells. No skull lesion. Will IMPRESSION: 1. No acute intracranial abnormalities. 2. Mild atrophy. 3. Opacified right sphenoid sinus. Electronically Signed By: Sonido Grant M.D. On: 08/07/2016 14:56
[2016-08-07] MEDS: ACETAMINOPHEN 325 MG/TAB TABLET PO PRN ×2 (15:10→21:29)
[2016-08-07] MEDS: OXYCODONE HCL 5 MG TABLET PO PRN (18:17)
[2016-08-07] MEDS: [UNRECOGNIZED DRUG - OTHER] PO SCH (18:18)
[2016-08-07] MEDS: SENNA CONCENTRATE TAB PO SCH (21:28)
[2016-08-07] MEDS: MIRTAZAPINE 15 MG TAB PO SCH (21:28)
[2016-08-08] MEDS: DILTIAZEM 60 MG TAB PO SCH ×4 (00:34→17:56)
[2016-08-08] MEDS: Albuterol/Ipratropium Neb 3 ML NEB NEB SCH ×4 (00:58→20:57)
[2016-08-08] MEDS: CARBIDOPA LEVODOPA PO SCH ×3 (05:22→21:34)
[2016-08-08] MEDS: BACLOFEN 10 MG TAB PO SCH ×3 (05:22→21:33)
[2016-08-08] MEDS: SODIUM BICARBONATE 650 MG (10 GR) TAB PO SCH ×3 (05:23→21:34)
[2016-08-08] MEDS: SODIUM CHLORIDE 0.9% 3 ML FLUSH FLUSH SCH ×2 (05:23→17:56)
[2016-08-08 06:04] LABS: BLOOD UREA NITROGEN 22 MG/DL (9-20); CALCIUM 7.8 MG/DL (8.4-10.2); CALCULATED OSMOLALITY 266 MOs/Kg (270-290); CHLORIDE 103 mEq/L (98-107); GLUCOSE 72 MG/DL (70-99); SODIUM LEVEL 137 mEq/L (137-146)
[2016-08-08] MEDS: NYSTATIN ORAL SUSP 5 ML PO SCH ×4 (07:50→21:35)
[2016-08-08] MEDS: GUAIFENESIN 600 MG LA TAB PO SCH ×2 (07:50→21:34)
[2016-08-08] MEDS: ALLOPURINOL 300 MG TAB PO SCH (07:50)
[2016-08-08] MEDS: PEG-ELECTROLYTE 17 GM PACK PO SCH (07:53)
[2016-08-08] MEDS: [UNRECOGNIZED DRUG - OTHER] PO SCH ×2 (07:53→17:56)
[2016-08-08] MEDS: METOPROLOL TARTRATE 50 MG TAB PO SCH ×2 (09:23→21:34)
--- NOTE | 2016-08-08 09:42 | GENMEDPROG ---
Chief Complaint: Confused. Says breathing is ok. Denies pain Notes Reviewed: Yes Events from last night noted and discussed with Clinical Staff Current Medication List: Reviewed Currently: Reports: Cough, Wheezing, SOB DVT Prophylaxis: Yes - Physical Examination Vital Signs and I&O: Last Vital Signs Temp 97.7 F 08/08/16 08:09 Pulse 88 08/08/16 08:09 Resp 18 08/08/16 08:09 BP 112/57 L 08/08/16 08:09 Pulse Ox 93 08/08/16 08:09 Oxygen Pulse Oxygen Saturation 93 O2 Device Nasal Cannula Oxygen Flow Rate 2 Fraction of Inspired Oxygen ( 55 FIO2) Intake & Output 08/05/16 08/06/16 08/07/16 08/08/16 23:59 23:59 23:59 23:59 Intake Total 1444 1021 240 571 Output Total 1225 875 550 300 Balance 219 146 -310 271 Patient's weight 103.737 kg 103.918 kg 104.961 kg 101.06 kg General: Alert, Cooperative, Mild distress, Weakness, Fatigue. negative: Oriented x3, Well appearing (Chronically ill appearing) HEENT: Normal, PERRLA, EOMI, Anicteric Sclera, Mucous membr. moist/pink Neck: Normal Trachea alignment, Normal inspection Lymphatics: Normal Respiratory: Diminished, Rales Cardiovascular: Normal S1, No Gallops,Rubs/Murmurs, Normal S2, Chest Non Tender , Irregular (HEART RATE IS SLOWER, MORE CONTROLLED). negative: LE Edema GI: Normal bowel sounds, Soft, Non tender (non distended) Extremities/Musculoskeletal: DJD, Other (Normal Tone). negative: Edema, Cyanosis Skin: Warm,Dry and Intact, No breakdown Neurological: Normal speech, Normal tone, Cranial nerves 3-12 NL, Drowsy Psych/Mental Status: Cooperative, Confabulating, Confused, Disoriented. negative: Normal Affect (flat) Lab/DI/Studies Reviewed: Laboratory Results - last 24 hr 08/07/16 08/08/16 08/08/16 22:00 02:21 05:15 Sodium 137 Potassium 4.0 Chloride 103 Carbon Dioxide 28 Anion Gap 10 BUN 22 H Creatinine 1.10 Estimated GFR (MDRD) > 60 Glucose 72 Calculated Osmolality 266 L Calcium 7.8 L Stool Occult Blood Neg Neg 08/08/16 05:30 Sodium Potassium Chloride Carbon Dioxide Anion Gap BUN Creatinine Estimated GFR (MDRD) Glucose Calculated Osmolality Calcium Stool Occult Blood Neg - Assessment (1) Adult failure to thrive Acute R62.7 - ADULT FAILURE TO THRIVE Comment/Plan: Worrisome history. [facility]. Not much better over the last couple of weeks. Still lethargic and poorly interactive at times. Did poorly with speech therapy today. Clinically does not look infected. Renal function is normal. Worried that this may be baseline which portends a very poor prognosis. Have asked Neurology to see in consultation. Left message with Anita Mcgrath. (2) Dementia Chronic F03.90 - UNSPECIFIED DEMENTIA WITHOUT BEHAVIORAL DISTURBANCE Qualifiers: Dementia type: Alzheimer's disease Alzheimer's disease onset: late-onset Dementia behavioral disturbance: without behavioral disturbance Qualified Code (s): G30.1 - Alzheimer's disease with late onset; F02.80 - Dementia in other diseases classified elsewhere without behavioral disturbance Comment/Plan: Worried that decline is related to progressive dementia. Have asked Neurology to see in consultation (3) Parkinsons disease Chronic G20 - PARKINSON'S DISEASE Comment/Plan: This is suspected diagnosis. He was started on Sinemet. Does have some resting tremor. Have asked Neurology to see. (4) Hypernatremia Acute E87.0 - HYPEROSMOLALITY AND HYPERNATREMIA Comment/Plan: Resolved. Now 137. (5) Chronic renal disease Chronic N18.9 - CHRONIC KIDNEY DISEASE, UNSPECIFIED Qualifiers: Chronic kidney disease stage: stage 2 (mild) Qualified Code(s): N18.2 - Chronic kidney disease, stage 2 (mild) Comment/Plan: Renal function stable, creatinine 1.1. (6) Dysphagia Chronic R13.10 - DYSPHAGIA, UNSPECIFIED Qualifiers: Dysphagia type: oropharyngeal phase Qualified Code(s): R13.12 - Dysphagia, oropharyngeal phase Comment/Plan: Appreciate speech therapy evaluations. Continue dysphagia precautions Case Care Discussed with: Patient, Nursing Staff, Physical Therapy, Resource Management, Respiratory Therapy, Genetic Technologist
[2016-08-08] MEDS: CALCIUM CARBONATE 500 MG TAB PO SCH ×2 (13:32→17:56)
[2016-08-08] MEDS: VITAMINS, MULTIPLE CAP PO SCH (13:32)
[2016-08-08] MEDS: ASCORBIC ACID 500 MG TAB PO SCH ×2 (13:32→17:56)
[2016-08-08] MEDS: ZINC SULFATE 220 MG CAP PO SCH (13:32)
[2016-08-08] MEDS ORDERED: Medication Special Instructions SCH (14:00)
--- NOTE | 2016-08-08 19:11 | PCM.NEUCO ---
Consultation Date: 08/08/16 Requesting Physician: Michael Terrell Consulting Doctor: Anita Mcgrath Reason For Consult: Mental Status Changes 76 y.o. male with PMH significant for dementia, Parkinson's disease, and Afib admitted on 07/31/16 for pneumonia, afib, and TME. He had just been hospitalized from 07/19/16 to 07/27/15 for GI bleed and pneumonia. Patient has been more confused, lethargic, and slow to improve this admission. A CT of his head was done yesterday which was negative for any acute intracranial findings. Neurology was consulted regarding changes in mental status. - Past Medical and Surgical History Cardiac History: Reports: Atrial Fibrillation, Hypertension, Heart Attack, Valvular Heart Disease Respiratory History: Reports: COPD, Aspiration Pneumonia, Pneumonia GI/ History: Reports: Renal Disease (Chronic), Gastroesophageal Reflux, BPH Systemic History: Reports: No Significant History Musculoskeletal History: Reports: Arthritis Psychological History: Reports: Anxiety. Denies: Depression Neurological History: Reports: Dementia, Parkinson's Past Surgical History: Reports: No Significant History Allergies hydrocodone Allergy (Verified 07/19/16 13:57) Unknown shrimp Allergy (Verified 07/19/16 13:57) Unknown Sulfa (Sulfonamide Antibiotics) Allergy (Verified 07/19/16 13:57) Unknown Home Medications Acetaminophen [Tylenol] 650 mg PO Q6H PRN 07/19/16 Allopurinol [Zyloprim] 300 mg PO DAILY 07/19/16 Apixaban [Eliquis] 2.5 mg PO BID 07/19/16 Ascorbic Acid [Vitamin C] 500 mg PO BID 07/19/16 Baclofen 5 mg PO TID 07/19/16 Calcium Carbonate 500 mg PO BID 07/19/16 Carbidopa/Levodopa [Sinemet 10-100 mg Tablet] 1 tab PO TID 07/19/16 Guaifenesin [Humabid, Mucinex] 600 mg PO Q12H 07/19/16 Guaifenesin [Robitussin] 10 ml PO Q6H 07/19/16 Lmfol Ca/Acetyl/Mb12/Algal Oil [Cerefolin Nac Caplet] 1 tab PO DAILY 07/19/16 Med Pass 60 ml PO TID 07/19/16 Metoprolol Tartrate 50 mg PO BID 07/19/16 Multivitamin [One Daily] 1 tab PO DAILY 07/19/16 Nystatin 5 ml PO QID 07/19/16 Omeprazole 20 mg PO DAILY 07/19/16 Perphenazine 2 mg PO TID 07/19/16 Sodium Bicarbonate 650 mg PO TID 07/19/16 Zinc Sulfate 220 mg PO DAILY 07/19/16 Albuterol/Ipratropium Neb [Duoneb] 3 ml NEB Q6H PRN #1 box 07/27/16 Amoxicillin/Potassium Clav [Augmentin Es-600 Suspension] 600 mg PO TIDAC #10 susp.recon 07/27/16 Mirtazapine 30 mg PO HS #90 tab 07/27/16 PEG-Electrolytes (Miralax) [Miralax] 17 gm PO DAILY #1 each 07/27/16 Prednisone 10 mg PO DAILY #30 tab.ds.pk 07/27/16 Senna Concentrate [Senokot] 1 tab PO HS #120 tab 07/27/16 - Social History Travel Outside of [place] in the Last 3 Months?: No Lives: in Residential/SNF Smoking Status: Never smoker - Family History Reports: Cardiac Disorders, Respiratory Disorders - Review of Systems Constitutional: Loss of Appetite Eyes: No Symptoms Reported (Denies visual problems) Throat/Neck: No Symptoms Reported (Denies neck pain) Cardiovascular: No Symptoms Reported (Denies CP) Gastrointestinal: Appetite Changes Genitourinary: No Symptoms Reported (Denies urinary complaints) Neurological: Tremors, Changes in Orientation Musculoskeletal:: No Symptoms Reported (Denies back pain) Integumentary: Bruising (on BUE) Endocrine: No Symptoms Reported (Negative for DM) Psychiatric: No Symptoms Reported (Denies depression) - Physical Exam Vital Signs: Initial Vitals Temperature 99.1 F 07/30/16 21:40 Pulse Rate 119 07/30/16 21:40 Respiratory Rate 30 H 07/30/16 21:40 Blood Pressure 191/101 H 07/30/16 21:40 Pulse Oxygen Saturation 98 07/30/16 21:40 Selected Entries 08/08/16 15:55 Temperature 97.8 F Pulse Rate 72 Respiratory 18 Rate Pulse Oxygen 93 Saturation Constitutional: No apparent distress, Somnolent, Well nourished Oriented to: Time (Pt knows it is July but stated year 2070), Person, Place ( patient knows he is in hospital but states in [place]) - HEENT Head: Normal - Integumentary Skin: Warm - Mental Status Orientation: Person Speech: Fluent (but very slow to respond to questions), Clear Coginitive: Follows Commands Motor Function: Other (Difficult to test due to patient's somnolent state, arm strength est 4 to 5-/5; Patient reports he is unable to lift legs off of bed but able to prevent legs from being lifted) Affect: Calm, Flat Thought: Coherent Perception: Normal - Sensory Sensory: Normal (intact to light touch and pain in all extremities) - Reflex Babinski Reflex Response: Absent Bilateral Reflexes: Diminished 1+: Left Patellar, Right Patellar, Left Achilles, Right Achilles, Normal 2+: Right Bicep, Left Bicep, Left Tricep, Right Tricep, Left Brachioradialis, Right Brachioradialis - Coordination Finger to Nose Test: Normal Performance (intention tremor present) Hand Tapping Test: Normal Performance (finger tap normal) - Other Exam Other Exam Findings: CN II-XII: Pupil size equal and reactive. Fundi not visualized. EOMI with no nystagmus. Hearing intact to voice. Symmetric facial sensation. No facial droop. Normal tongue protrusion and shoulder shrug. VF not tested. Normal JUAN MANUEL. - Lab Results Laboratory Tests 07/30/16 08/05/16 08/08/16 22:10 04:00 05:15 WBC 12.9 H Hgb 9.9 L Hct 30.9 L MCV 92 PT 13.9 H INR 1.4 APTT 29.1 Sodium 137 Potassium 4.0 BUN 22 H Creatinine 1.10 Glucose 72 - Diagnostic Findings CT/CT HEAD W/O CM CLINICAL DATA: Confusion today. History of dementia and Parkinson's disease. EXAM: CT HEAD WITHOUT CONTRAST (08/07/16) TECHNIQUE: Contiguous axial images were obtained from the base of the skull through the vertex without intravenous contrast. COMPARISON: None. FINDINGS: The ventricles are normal in size, for this patient's age, and normal in configuration. There is sulcal enlargement reflecting mild atrophy. There are no parenchymal masses or mass effect. There is no evidence of a cortical infarct. There are no extra-axial masses or abnormal fluid collections. There is no intracranial hemorrhage. Right sphenoid sinuses opacified. Remaining visualized sinuses are clear as are the mastoid air cells. No skull lesion. Will IMPRESSION: 1. No acute intracranial abnormalities. 2. Mild atrophy. 3. Opacified right sphenoid sinus. - Assessment/Plan (1) Toxic metabolic encephalopathy G92 - TOXIC ENCEPHALOPATHY Acute Comment: Patient has experienced increased confusion and somnolence this admission. Head CT done yesterday was negative for any acute findings. He is on several medications that can cause sedation (i.e. Baclofen, Sinemet, Remeron) but was on these medications prior to his previous admission. Labs ordered to evaluate for possible causes of symptoms. EEG also ordered to r/o seizure activity. Case Care Discussed with: Other (Dr. Mclaughlin, neurologist)
[2016-08-08] MEDS: ACETAMINOPHEN 325 MG/TAB TABLET PO PRN (21:32)
[2016-08-08] MEDS: OXYCODONE HCL 5 MG TABLET PO PRN (21:32)
[2016-08-08] MEDS: APIXABAN 5 MG TABLET PO SCH (21:33)
[2016-08-08] MEDS: SENNA CONCENTRATE TAB PO SCH (21:35)
[2016-08-08] MEDS: MIRTAZAPINE 15 MG TAB PO SCH (21:35)
[2016-08-09] MEDS: DILTIAZEM 60 MG TAB PO SCH ×5 (00:10→23:41)
[2016-08-09] MEDS: Albuterol/Ipratropium Neb 3 ML NEB NEB SCH ×4 (02:14→20:57)
[2016-08-09] MEDS: BACLOFEN 10 MG TAB PO SCH ×3 (05:45→22:13)
[2016-08-09] MEDS: CARBIDOPA LEVODOPA PO SCH ×3 (05:45→22:13)
[2016-08-09] MEDS: SODIUM BICARBONATE 650 MG (10 GR) TAB PO SCH ×3 (05:45→22:13)
[2016-08-09] MEDS: SODIUM CHLORIDE 0.9% 3 ML FLUSH FLUSH SCH ×2 (05:46→17:53)
[2016-08-09 07:03] LABS: AUTOMATED BASOPHIL 0.3 % (0-2); AUTOMATED EOSINOPHIL 2.1 % (0-5); AUTOMATED LYMPH 14.9 % (17-44); AUTOMATED MONOCYTE 7.5 % (3-10); AUTOMATED NEUTROPHIL 75.2 % (45-76); MPV 7.9 fL (7.4-10.4)
[2016-08-09 07:26] LABS: BLOOD UREA NITROGEN 21 MG/DL (9-20); CALCIUM 7.7 MG/DL (8.4-10.2); CALCULATED OSMOLALITY 269 MOs/Kg (270-290); CHLORIDE 104 mEq/L (98-107); GLUCOSE 69 MG/DL (70-99); SODIUM LEVEL 139 mEq/L (137-146)
--- NOTE | 2016-08-09 07:54 | DIRPT ---
CLINICAL DATA: Pneumonia EXAM: PORTABLE CHEST 1 VIEW COMPARISON: August 04, 2016 FINDINGS: There is persistent left lower lobe opacity, concerning for pneumonia. Lungs elsewhere clear. Heart is slightly enlarged with pulmonary vascularity within normal limits. No adenopathy. No bone lesions. Patient is status post median sternotomy. IMPRESSION: Left lower lobe opacity, concerning for pneumonia. Lungs elsewhere clear. Heart prominent but stable. No adenopathy evident. Electronically Signed By: Andi Vallejo III, M.D. On: 08/09/2016 07:51
[2016-08-09] MEDS: ALLOPURINOL 300 MG TAB PO SCH (08:07)
[2016-08-09] MEDS: PEG-ELECTROLYTE 17 GM PACK PO SCH (08:07)
[2016-08-09] MEDS: [UNRECOGNIZED DRUG - OTHER] PO SCH ×2 (08:07→17:53)
[2016-08-09] MEDS: GUAIFENESIN 600 MG LA TAB PO SCH ×2 (08:07→22:13)
[2016-08-09] MEDS: NYSTATIN ORAL SUSP 5 ML PO SCH ×4 (08:07→22:12)
[2016-08-09] MEDS: APIXABAN 5 MG TABLET PO SCH ×2 (08:07→22:13)
[2016-08-09] MEDS: METOPROLOL TARTRATE 50 MG TAB PO SCH ×2 (08:08→22:14)
[2016-08-09 08:20] LABS: FOLATES > 20.00 ng/mL (>2.76)
--- NOTE | 2016-08-09 11:01 | GENMEDPROG ---
Chief Complaint: Maybe a little more alert today. Denies complaints. No chest pain or shortness of breath. Appreciate Neurology evaluation. Notes Reviewed: Yes Events from last night noted and discussed with Clinical Staff Current Medication List: Reviewed Currently: Reports: Cough, Wheezing, SOB DVT Prophylaxis: Yes - Physical Examination Vital Signs and I&O: Last Vital Signs Temp 97.7 F 08/09/16 08:10 Pulse 71 08/09/16 10:30 Resp 14 08/09/16 10:30 BP 98/63 L 08/09/16 10:30 Pulse Ox 98 08/09/16 10:30 Oxygen Pulse Oxygen Saturation 98 O2 Device Nasal Cannula Oxygen Flow Rate 2 Fraction of Inspired Oxygen ( 55 FIO2) Intake & Output 08/06/16 08/07/16 08/08/16 08/09/16 23:59 23:59 23:59 23:59 Intake Total 7900 884 9041 271 Output Total 875 550 670 Balance 146 -310 428 271 Patient's weight 103.918 kg 104.961 kg 101.06 kg 102.149 kg General: Alert, Cooperative, Mild distress, Weakness, Fatigue. negative: Oriented x3, Well appearing (Chronically ill appearing) HEENT: Normal, PERRLA, EOMI, Anicteric Sclera, Mucous membr. moist/pink Neck: Normal Trachea alignment, Normal inspection Lymphatics: Normal. negative: Adenopathy Respiratory: Diminished, Rales Cardiovascular: Normal S1, No Gallops,Rubs/Murmurs, Normal S2, Chest Non Tender , Irregular (HEART RATE IS SLOWER, MORE CONTROLLED). negative: LE Edema GI: Normal bowel sounds, Soft, Non tender (non distended) Extremities/Musculoskeletal: DJD, Other (Normal Tone). negative: Edema, Cyanosis Skin: Warm,Dry and Intact, No breakdown Neurological: Normal speech, Normal tone, Cranial nerves 3-12 NL, Drowsy Psych/Mental Status: Cooperative, Confused, Disoriented, Lethargic. negative: Normal Affect (flat) Lab/DI/Studies Reviewed: Laboratory Results - last 24 hr 08/09/16 08/09/16 08/09/16 06:30 06:30 06:30 WBC 9.2 RBC 3.27 L Hgb 9.8 L Hct 29.9 L MCV 91 MCH 29.8 MCHC 32.7 L RDW 21.2 H Plt Count 139 MPV 7.9 Neut % (Auto) 75.2 Lymph % (Auto) 14.9 L [place] % (Auto) 7.5 Eos % (Auto) 2.1 Baso % (Auto) 0.3 Absolute Neuts (auto) 6.90 Absolute Lymphs (auto) 1.29 ESR 85 H Sodium 139 Potassium 3.7 Chloride 104 Carbon Dioxide 30 Anion Gap 9 BUN 21 H Creatinine 1.00 Estimated GFR (MDRD) > 60 Glucose 69 L Calculated Osmolality 269 L Calcium 7.7 L Ammonia Vitamin B12 > 1000 H Serum Folate > 20.00 TSH RPR 08/09/16 08/09/16 08/09/16 06:30 06:30 06:30 WBC RBC Hgb Hct MCV MCH MCHC RDW Plt Count MPV Neut % (Auto) Lymph % (Auto) [place] % (Auto) Eos % (Auto) Baso % (Auto) Absolute Neuts (auto) Absolute Lymphs (auto) ESR Sodium Potassium Chloride Carbon Dioxide Anion Gap BUN Creatinine Estimated GFR (MDRD) Glucose Calculated Osmolality Calcium Ammonia < 9.0 L Vitamin B12 Serum Folate TSH 6.90 H RPR Nonreactive - Assessment (1) Adult failure to thrive Acute R62.7 - ADULT FAILURE TO THRIVE Comment/Plan: Appears a little more alert today. Etiology of decline is unclear. Appreciate Neurology evaluation. Head CT and lab work essentially unremarkable. Will try to minimize sedating type medications. Encourage physical therapy and activity as tolerated (2) Dementia Chronic F03.90 - UNSPECIFIED DEMENTIA WITHOUT BEHAVIORAL DISTURBANCE Qualifiers: Dementia type: Alzheimer's disease Alzheimer's disease onset: late-onset Dementia behavioral disturbance: without behavioral disturbance Qualified Code (s): G30.1 - Alzheimer's disease with late onset; F02.80 - Dementia in other diseases classified elsewhere without behavioral disturbance Comment/Plan: Worried that decline is related to progressive dementia. Appreciate Neurology evaluation (3) Parkinsons disease Chronic G20 - PARKINSON'S DISEASE Comment/Plan: This is suspected diagnosis. He was started on Sinemet. Does have some resting tremor. Have asked Neurology to see. (4) Hypernatremia Acute E87.0 - HYPEROSMOLALITY AND HYPERNATREMIA Comment/Plan: Resolved. Now 137. (5) Chronic renal disease Chronic N18.9 - CHRONIC KIDNEY DISEASE, UNSPECIFIED Qualifiers: Chronic kidney disease stage: stage 2 (mild) Qualified Code(s): N18.2 - Chronic kidney disease, stage 2 (mild) Comment/Plan: Renal function stable, creatinine 1.1. (6) Dysphagia Chronic R13.10 - DYSPHAGIA, UNSPECIFIED Qualifiers: Dysphagia type: oropharyngeal phase Qualified Code(s): R13.12 - Dysphagia, oropharyngeal phase Comment/Plan: Appreciate speech therapy evaluations. Continue dysphagia precautions Case Care Discussed with: Patient, Consultants, Nursing Staff, Physical Therapy , Resource Management, Respiratory Therapy, Windows Server Administrator
[2016-08-09] MEDS: ASCORBIC ACID 500 MG TAB PO SCH ×2 (11:44→17:53)
[2016-08-09] MEDS: VITAMINS, MULTIPLE CAP PO SCH (11:44)
[2016-08-09] MEDS: CALCIUM CARBONATE 500 MG TAB PO SCH ×2 (11:44→17:53)
[2016-08-09] MEDS: ZINC SULFATE 220 MG CAP PO SCH (11:44)
[2016-08-09] MEDS: OXYCODONE HCL 5 MG TABLET PO PRN ×2 (11:44→22:12)
[2016-08-09] MEDS: ACETAMINOPHEN 325 MG/TAB TABLET PO PRN (12:54)
[2016-08-09 14:12] VITALS: TEMP 97
[2016-08-09] MEDS: SENNA CONCENTRATE TAB PO SCH (22:13)
[2016-08-09] MEDS: MIRTAZAPINE 15 MG TAB PO SCH (22:14)
[2016-08-10] MEDS: Albuterol/Ipratropium Neb 3 ML NEB NEB SCH ×4 (02:46→19:37)
[2016-08-10 05:14] VITALS: BMI 33.7
[2016-08-10] MEDS: SODIUM CHLORIDE 0.9% 3 ML FLUSH FLUSH SCH ×2 (05:42→16:40)
[2016-08-10] MEDS: DILTIAZEM 60 MG TAB PO SCH ×4 (05:45→21:51)
[2016-08-10] MEDS: CARBIDOPA LEVODOPA PO SCH (05:45)
[2016-08-10] MEDS: BACLOFEN 10 MG TAB PO SCH ×3 (05:45→21:51)
[2016-08-10] MEDS: SODIUM BICARBONATE 650 MG (10 GR) TAB PO SCH ×3 (05:45→21:50)
[2016-08-10 05:51] LABS: BLOOD UREA NITROGEN 19 MG/DL (9-20); CALCIUM 7.5 MG/DL (8.4-10.2); CALCULATED OSMOLALITY 266 MOs/Kg (270-290); CHLORIDE 103 mEq/L (98-107); GLUCOSE 71 MG/DL (70-99); SODIUM LEVEL 138 mEq/L (137-146)
--- NOTE | 2016-08-10 08:15 | PCM.NEUPN ---
- Physical Exam Vital Signs: Initial Vitals Temperature 99.1 F 07/30/16 21:40 Pulse Rate 119 07/30/16 21:40 Respiratory Rate 30 H 07/30/16 21:40 Blood Pressure 191/101 H 07/30/16 21:40 Pulse Oxygen Saturation 98 07/30/16 21:40 Constitutional: No apparent distress, Alert - Mental Status Orientation: Time, Person. negative: Place Speech: Fluent, Clear Coginitive: Short-term (deficits with decreased fund of knowledge) Motor Function: Abnormal (has signs and symptoms of parkinson's disease) Affect: Normal Thought: Coherent Perception: Normal - Sensory Sensory: Normal Sensory: Normal - Lab Results Laboratory Tests 07/30/16 08/02/16 08/03/16 22:10 05:25 05:05 WBC 17.1 H 12.3 H 12.6 H ESR Calcium Ammonia Vitamin B12 Serum Folate TSH RPR 08/04/16 08/05/16 08/08/16 06:19 04:00 05:15 WBC 13.2 H 12.9 H ESR Calcium 7.8 L Ammonia Vitamin B12 Serum Folate TSH RPR 08/09/16 08/09/16 08/09/16 06:30 06:30 06:30 WBC 9.2 ESR 85 H Calcium 7.7 L Ammonia Vitamin B12 > 1000 H Serum Folate > 20.00 TSH RPR 08/09/16 08/09/16 08/09/16 06:30 06:30 06:30 WBC ESR Calcium Ammonia < 9.0 L Vitamin B12 Serum Folate TSH 6.90 H RPR Nonreactive 08/10/16 04:40 WBC ESR Calcium 7.5 L Ammonia Vitamin B12 Serum Folate TSH RPR - Diagnostic Findings EEG pending - Assessment/Plan (1) Toxic metabolic encephalopathy G92 - TOXIC ENCEPHALOPATHY Acute Present on Admission: Yes Comment: Pt asleep but easily awakened. Oriented to person and year but not place. He thought he was at [facility] but agreed that he is at [place]. He was able to show me two fingers on the right hand and answered questions appropriately. The exam shows signs and symptoms of mild to moderate parkinson' s disease. I think his cognitive problems are a progression of his dementia and may not improve much as his electrolytes improve. He does have a mild increase in TSH. His sinemet was recently added and could be contributing to his cognitive difficulties and level of alertness and may not help his PD symptoms that much, so I would stop them and see how he does. His EEG is pending. Plan: 1. Continue supportive care 2. stop sinemet 3. f/u on EEG.
[2016-08-10] MEDS: [UNRECOGNIZED DRUG - OTHER] PO SCH ×2 (09:27→16:39)
[2016-08-10] MEDS: APIXABAN 5 MG TABLET PO SCH ×2 (09:27→21:50)
[2016-08-10] MEDS: ALLOPURINOL 300 MG TAB PO SCH (09:27)
[2016-08-10] MEDS: METOPROLOL TARTRATE 50 MG TAB PO SCH ×2 (09:27→21:50)
[2016-08-10] MEDS: GUAIFENESIN 600 MG LA TAB PO SCH ×2 (09:27→21:50)
[2016-08-10] MEDS: PEG-ELECTROLYTE 17 GM PACK PO SCH (09:27)
[2016-08-10] MEDS: NYSTATIN ORAL SUSP 5 ML PO SCH ×4 (09:27→21:50)
[2016-08-10] MEDS: CALCIUM CARBONATE 500 MG TAB PO SCH ×2 (12:21→16:39)
[2016-08-10] MEDS: ASCORBIC ACID 500 MG TAB PO SCH ×2 (12:22→16:40)
[2016-08-10] MEDS: VITAMINS, MULTIPLE CAP PO SCH (12:22)
--- NOTE | 2016-08-10 13:48 | GENMEDPROG ---
Subjective Note: Some better. More alert and interactive today. Denies pain at present. EEG still pending Notes Reviewed: Yes Events from last night noted and discussed with Clinical Staff Current Medication List: Reviewed Currently: Reports: Cough, Wheezing, SOB DVT Prophylaxis: Yes - Physical Examination Vital Signs and I&O: Last Vital Signs Temp 98.2 F 08/10/16 11:57 Pulse 96 08/10/16 12:25 Resp 18 08/10/16 11:57 BP 108/68 08/10/16 11:57 Pulse Ox 95 08/10/16 11:57 Oxygen Pulse Oxygen Saturation 95 O2 Device Nasal Cannula Oxygen Flow Rate 2 Fraction of Inspired Oxygen ( 55 FIO2) Intake & Output 08/07/16 08/08/16 08/09/16 08/10/16 23:59 23:59 23:59 23:59 Intake Total 240 1098 910 530 Output Total 550 670 900 Balance -310 428 10 530 Patient's weight 104.961 kg 101.06 kg 102.149 kg 103.51 kg General: Alert, Cooperative, Mild distress, Weakness, Fatigue. negative: Oriented x3, Well appearing (Chronically ill appearing) HEENT: Normal, PERRLA, EOMI, Anicteric Sclera, Mucous membr. moist/pink Neck: Normal Trachea alignment, Normal inspection Lymphatics: Normal. negative: Adenopathy Respiratory: Diminished, Rales Cardiovascular: Normal S1, No Gallops,Rubs/Murmurs, Normal S2, Chest Non Tender , Irregular (HEART RATE IS SLOWER, MORE CONTROLLED). negative: LE Edema GI: Normal bowel sounds, Soft, Non tender (non distended) Extremities/Musculoskeletal: DJD, Other (Normal Tone). negative: Edema, Cyanosis Skin: Warm,Dry and Intact, No breakdown Neurological: Normal speech, Normal tone, Cranial nerves 3-12 NL, Drowsy Psych/Mental Status: Cooperative, Confused, Disoriented, Lethargic. negative: Normal Affect (flat) Lab/DI/Studies Reviewed: Laboratory Results - last 24 hr 08/10/16 04:40 Sodium 138 Potassium 3.6 Chloride 103 Carbon Dioxide 31 Anion Gap 8 BUN 19 Creatinine 1.00 Estimated GFR (MDRD) > 60 Glucose 71 Calculated Osmolality 266 L Calcium 7.5 L - Assessment (1) Adult failure to thrive Acute R62.7 - ADULT FAILURE TO THRIVE Comment/Plan: Slightly more alert today. Etiology of decline appears to be due to progressive dementia. Appreciate Neurology evaluation. Head CT and lab work essentially unremarkable. Will try to minimize sedating type medications. Encourage physical therapy and activity as tolerated. EEG is still pending. If stable likely back to assisted facility 1-2 days (2) Dementia Chronic F03.90 - UNSPECIFIED DEMENTIA WITHOUT BEHAVIORAL DISTURBANCE Qualifiers: Dementia type: Alzheimer's disease Alzheimer's disease onset: late-onset Dementia behavioral disturbance: without behavioral disturbance Qualified Code (s): G30.1 - Alzheimer's disease with late onset; F02.80 - Dementia in other diseases classified elsewhere without behavioral disturbance Comment/Plan: Worried that decline is related to progressive dementia. Appreciate Neurology evaluation (3) Parkinsons disease Chronic G20 - PARKINSON'S DISEASE Comment/Plan: Appreciate Neurology evaluation. Suspect he does have Parkinson's disease. However cognition is poor and concerned that Sinemet is contributing so will discontinue (4) Hypernatremia Acute E87.0 - HYPEROSMOLALITY AND HYPERNATREMIA Comment/Plan: Resolved. Labs are stable (5) Chronic renal disease Chronic N18.9 - CHRONIC KIDNEY DISEASE, UNSPECIFIED Qualifiers: Chronic kidney disease stage: stage 2 (mild) Qualified Code(s): N18.2 - Chronic kidney disease, stage 2 (mild) Comment/Plan: Renal function stable, creatinine 1.1. (6) Dysphagia Chronic R13.10 - DYSPHAGIA, UNSPECIFIED Qualifiers: Dysphagia type: oropharyngeal phase Qualified Code(s): R13.12 - Dysphagia, oropharyngeal phase Comment/Plan: Appreciate speech therapy evaluations. Continue dysphagia precautions Case Care Discussed with: Patient, Consultants, Nursing Staff, Resource Management, Respiratory Therapy
[2016-08-10] MEDS: ZINC SULFATE 220 MG CAP PO SCH (14:30)
[2016-08-10] MEDS: MIRTAZAPINE 15 MG TAB PO SCH (21:51)
[2016-08-10] MEDS: SENNA CONCENTRATE TAB PO SCH (21:52)
[2016-08-11] MEDS: Albuterol/Ipratropium Neb 3 ML NEB NEB SCH ×2 (01:29→09:16)
[2016-08-11 03:33] LABS: BLOOD UREA NITROGEN 17 MG/DL (9-20); CALCULATED OSMOLALITY 269 MOs/Kg (270-290); CHLORIDE 101 mEq/L (98-107); GLUCOSE 81 MG/DL (70-99); SODIUM LEVEL 139 mEq/L (137-146)
[2016-08-11] MEDS: DILTIAZEM 60 MG TAB PO SCH ×2 (06:49→12:08)
[2016-08-11] MEDS: BACLOFEN 10 MG TAB PO SCH (06:49)
[2016-08-11] MEDS: SODIUM CHLORIDE 0.9% 3 ML FLUSH FLUSH SCH (06:53)
[2016-08-11 08:01] VITALS: TEMP 98.6
[2016-08-11] MEDS: NYSTATIN ORAL SUSP 5 ML PO SCH ×2 (09:07→12:08)
[2016-08-11] MEDS: [UNRECOGNIZED DRUG - OTHER] PO SCH (09:07)
[2016-08-11] MEDS: APIXABAN 5 MG TABLET PO SCH (09:07)
[2016-08-11] MEDS: METOPROLOL TARTRATE 50 MG TAB PO SCH (09:08)
[2016-08-11] MEDS: PEG-ELECTROLYTE 17 GM PACK PO SCH (09:08)
[2016-08-11] MEDS: GUAIFENESIN 600 MG LA TAB PO SCH (09:09)
[2016-08-11] MEDS: ALLOPURINOL 300 MG TAB PO SCH (09:09)
--- NOTE | 2016-08-11 11:27 | PCM.DCS92 ---
- Final/Secondary Discharge Diagnosis (1) Adult failure to thrive Acute R62.7 - ADULT FAILURE TO THRIVE Present on Admission: Yes Comment: Unchanged. Etiology of decline appears to be due to progressive dementia. Appreciate Neurology evaluation. Head CT and lab work essentially unremarkable. Will try to minimize sedating type medications. Encourage physical therapy and activity as tolerated. EEG is still pending. Plan transfer back to [facility]. Have left messages with family including point of contact Jody Macedo (2) Dementia Chronic F03.90 - UNSPECIFIED DEMENTIA WITHOUT BEHAVIORAL DISTURBANCE Present on Admission: Yes Alzheimer's disease late-onset without behavioral disturbance G30.1 - Alzheimer's disease with late onset; F02.80 - Dementia in other diseases classified elsewhere without behavioral disturbance Comment: Decline felt to be related to progressive dementia and Parkinson's disease. Appreciate Neurology evaluation. (3) Parkinsons disease Chronic G20 - PARKINSON'S DISEASE Present on Admission: Yes Comment: Appreciate Neurology evaluation. Suspect he does have Parkinson's disease. However cognition is poor and concerned that Sinemet is contributing so will discontinue (4) Hypernatremia Acute E87.0 - HYPEROSMOLALITY AND HYPERNATREMIA Present on Admission: Yes Comment: Resolved. Labs are stable (5) Chronic renal disease Chronic N18.9 - CHRONIC KIDNEY DISEASE, UNSPECIFIED stage 2 (mild) N18.2 - Chronic kidney disease, stage 2 (mild) Comment: Renal function stable, creatinine 1.1. (6) Dysphagia Chronic R13.10 - DYSPHAGIA, UNSPECIFIED Present on Admission: Yes oropharyngeal phase R13.12 - Dysphagia, oropharyngeal phase Comment: Appreciate speech therapy evaluations. Continue dysphagia precautions Discharge Disposition: [facility] Facility Discharge Condition: Stable Cognitive Discharge Status: Unable to communicate needs, Cognitive deficits prevent decision making for safety. Fuctional Discharge Status: Total Assistance Required Physician Follow up/Referrals: Anyi Estrella MD [Primary Care Provider] - One Week Home Medications / New Prescriptions: New Diltiazem HCl [Cardizem Cd] 240 mg PO DAILY #30 cap.er.24h Continue Guaifenesin [Robitussin] 10 ml PO Q6H Sodium Bicarbonate 650 mg PO TID Perphenazine 2 mg PO TID Baclofen 5 mg PO TID Ascorbic Acid [Vitamin C] 500 mg PO BID Metoprolol Tartrate 50 mg PO BID Guaifenesin [Mucinex] 600 mg PO Q12H Apixaban [Eliquis] 2.5 mg PO BID Zinc Sulfate 220 mg PO DAILY Calcium Carbonate 500 mg PO BID Omeprazole 20 mg PO DAILY Multivitamin [One Daily] 1 tab PO DAILY Lmfol Ca/Acetyl/Mb12/Algal Oil [Cerefolin Nac Caplet] 1 tab PO DAILY Allopurinol [Zyloprim] 300 mg PO DAILY Acetaminophen [Tylenol] 650 mg PO Q6H PRN PRN Reason: PAIN OR FEVER Med Pass 60 ml PO TID Albuterol/Ipratropium Neb [Duoneb] 3 ml NEB Q6H PRN #1 box PRN Reason: Shortness Of Breath Mirtazapine 30 mg PO HS #90 tab Senna Concentrate [Senokot] 1 tab PO HS #120 tab PEG-Electrolytes (Miralax) [Miralax] 17 gm PO DAILY #1 each Discontinued Nystatin 5 ml PO QID Carbidopa/Levodopa [Sinemet 10-100 mg Tablet] 1 tab PO TID Amoxicillin/Potassium Clav [Augmentin Es-600 Suspension] 600 mg PO TIDAC #10 susp.recon Prednisone 10 mg PO DAILY #30 tab.ds.pk Discharge Home Medication List Acetaminophen [Tylenol] 650 mg PO Q6H PRN 07/19/16 [History Confirmed 07/31/16 Last Taken 07/30/16] Allopurinol [Zyloprim] 300 mg PO DAILY 07/19/16 [History Confirmed 07/31/16 Last Taken 07/30/16] Apixaban [Eliquis] 2.5 mg PO BID 07/19/16 [History Confirmed 07/31/16 Last Taken 07/30/16] Ascorbic Acid [Vitamin C] 500 mg PO BID 07/19/16 [History Confirmed 07/31/16 Last Taken 07/30/16] Baclofen 5 mg PO TID 07/19/16 [History Confirmed 07/31/16 Last Taken 07/30/16] Calcium Carbonate 500 mg PO BID 07/19/16 [History Confirmed 07/31/16 Last Taken 07/30/16] Guaifenesin [Mucinex] 600 mg PO Q12H 07/19/16 [History Confirmed 07/31/16 Last Taken 07/30/16] Guaifenesin [Robitussin] 10 ml PO Q6H 12/29/16 [History Confirmed 07/31/16 Last Taken 07/30/16] Lmfol Ca/Acetyl/Mb12/Algal Oil [Cerefolin Nac Caplet] 1 tab PO DAILY 07/19/16 [ History Confirmed 07/31/16 Last Taken 07/30/16] Med Pass 60 ml PO TID 07/19/16 [History Confirmed 07/31/16 Last Taken 07/30/16] Metoprolol Tartrate 50 mg PO BID 07/19/16 [History Confirmed 07/31/16 Last Taken 07/30/16] Multivitamin [One Daily] 1 tab PO DAILY 07/19/16 [History Confirmed 07/31/16 Last Taken 07/30/16] Omeprazole 20 mg PO DAILY 07/19/16 [History Confirmed 07/31/16 Last Taken ] Perphenazine 2 mg PO TID 07/19/16 [History Confirmed 07/31/16 Last Taken ] Sodium Bicarbonate 650 mg PO TID 07/19/16 [History Confirmed 07/31/16 Last Taken 07/30/16] Zinc Sulfate 220 mg PO DAILY 07/19/16 [History Confirmed 07/31/16 Last Taken 04/07] Albuterol/Ipratropium Neb [Duoneb] 3 ml NEB Q6H PRN #1 box 07/27/16 [Rx Confirmed 07/31/16 Last Taken 07/30/16] Mirtazapine 30 mg PO HS #90 tab 07/27/16 [Rx Confirmed 07/31/16 Last Taken 07/30] PEG-Electrolytes (Miralax) [Miralax] 17 gm PO DAILY #1 each 07/27/16 [Rx Confirmed 07/31/16 Last Taken 07/30/16] Senna Concentrate [Senokot] 1 tab PO HS #120 tab 07/27/16 [Rx Confirmed Last Taken 07/30/16] Diltiazem HCl [Cardizem Cd] 240 mg PO DAILY #30 cap.er.24h 08/11/16 [Rx Last Taken Unknown] O2 Device: Nasal Cannula Oxygen to be used after Discharge: Continuous Diet at Discharge: Cardiac (pureed, nectar thick) Activity: As Tolerated Call Office For: Worsening Symptoms - DC Summary Notes Hospital Course Note:: Discharge summary on patient named ADY KAUFFMAN admitted to [facility] on 07/31/16 by Shree Cunningham MD. Date of discharge is []. Mr. Kauffman is a 76-year-old white male with a history of dementia Parkinson's disease who is a full-time resident [facility] brought to emergency room with worsening confusion increasing cough, shortness of breath, and congestion. He had recently been the hospital with bronchopneumonia, constipation and questionable GI bleed. He is found have left lower lobe pneumonia and was admitted to the hospital for further evaluation management. He was started on IV antibiotics and pulmonary toilet. Respiratory status and vitals have been stable for several days but his cognition has remained poor we felt that this was likely related to dementia and Parkinson's. Family requested we do further evaluation. He underwent head CT and we had Neurology see him in consultation. They confirmed our suspicions that this was progressive decline due to dementia. They did ask that we try to minimize sedating type medicines. As he had recently been started on Sinemet for Parkinson's we have elected to discontinue this. At baseline he is poorly active and functional and likely will continue to decline over time. Have attempted to reach family on multiple occasions but have been unsuccessful in contacting them over the last 2 days. At this point he has been stable for several days, has reached maximal hospital benefit and will be discharged to [facility] facility. Total Time: 1 hour - Physical Exam Vital Signs: Last Vital Signs Temp 98.6 F 08/11/16 08:00 Pulse 74 08/11/16 10:00 Resp 18 08/11/16 08:00 BP 116/67 08/11/16 08:00 Pulse Ox 94 08/11/16 09:14 Oxygen Pulse Oxygen Saturation 94 O2 Device Nasal Cannula Oxygen Flow Rate 2 Fraction of Inspired Oxygen ( 55 FIO2) Constitutional: No apparent distress, Alert. negative: Well appearing ( Chronically ill-appearing) Oriented to: Person, Place - HEENT Head: Normal Eye: Normal Oropharynx: Normal - Respiratory/Cardiovascular Respiratory: Normal - CTA, Diminished, Rales Cardiovascular: Normal - GI Auscultation: Normal Palpation: Normal Tenderness: Non tender Rectal Exam: Deferred - Musculoskeletal Back: Normal Extremities: Cyanosis, Edema - Integumentary Skin: Warm, Dry Lymphatics: Normal. negative: Adenopathy - Neurologic Memory Impaired: Short-term, Long-term Motor Function: Other (Rigid with decreased strength and mobility) Cranial Nerve: Normal Cerebellar: Normal Mood Description: Normal Thought: Coherent Perception: Normal
[2016-08-11 11:30] VITALS: BP 106/65
[2016-08-11] MEDS: VITAMINS, MULTIPLE CAP PO SCH (12:08)
[2016-08-11] MEDS: ZINC SULFATE 220 MG CAP PO SCH (12:08)
[2016-08-11] MEDS: ASCORBIC ACID 500 MG TAB PO SCH (12:08)
[2016-08-11] MEDS: CALCIUM CARBONATE 500 MG TAB PO SCH (12:09)
[2016-08-11 12:19] VITALS: PULSE 96
== END 2016-08-11 13:42 | DRG 193 ==
LOC: ED 21:40 → MPS3 07-31 00:32 → ICU 07-31 08:51 → PCU 08-05 13:30
PROVIDERS: ADMIT Internal Medicine; ATTEND Hospitalist
PROC: 039B3ZZ Drainage of Right Radial Artery, Percutaneous Approach (ICD-10-PCS; principal; 2016-07-31)
DX: J18.9 Pneumonia, unspecified organism (principal); G92 Toxic encephalopathy; N17.9 Acute kidney failure, unspecified; G20 Parkinson's disease; E87.0 Hyperosmolality and hypernatremia; R13.12 Dysphagia, oropharyngeal phase; J44.0 Chronic obstructive pulmonary disease with (acute) lower respiratory infection; R62.7 Adult failure to thrive; G30.1 Alzheimer's disease with late onset; F02.80 Dementia in other diseases classified elsewhere, unspecified severity, without behavioral disturbance, psychotic disturbance, mood disturbance, and anxiety; I12.9 Hypertensive chronic kidney disease with stage 1 through stage 4 chronic kidney disease, or unspecified chronic kidney disease; N18.2 Chronic kidney disease, stage 2 (mild); I25.2 Old myocardial infarction; I51.9 Heart disease, unspecified; Z87.01 Personal history of pneumonia (recurrent); K21.9 Gastro-esophageal reflux disease without esophagitis; N40.0 Benign prostatic hyperplasia without lower urinary tract symptoms; M19.90 Unspecified osteoarthritis, unspecified site; F41.9 Anxiety disorder, unspecified; Z88.2 Allergy status to sulfonamides; Z88.5 Allergy status to narcotic agent; Z79.899 Other long term (current) drug therapy; Y95 Nosocomial condition; I48.2 Chronic atrial fibrillation; K56.41 Fecal impaction
CPT/HCPCS: 36415; 36600; 51798; 70450; 71010; 74022; 74176; 76604; 80048; 80053; 81001; 82140; 82272; 82550; 82607; 82746; 82803; 82962; 83605; 83690; 83735; 84132; 84443; 84484; 85025; 85027; 85610; 85651; 85730; 86592; 87040; 87070; 87086; 87641; 93005; 94640; 95819; 96361; 96365; 96366; 97162; 99285; G0237; J0743; J1650; J1956; J2543; J3370; J3475; J3490; J7060; J7070; J7620